=== PATIENT | male | born 1935 | race Caucasian/White ===

== ENCOUNTER → 2016-07-21 | Outpatient (CLI) | payer OTHER, BC ==
[~2016-07-21] MED LIST: ACET-1256 PO; LISI-725 PO; LRT5 PO; MULT-513 PO; ONDA4TAB46 PO; SIMV20TA2 PO
[2016-07-21 12:49] LABS: ALT/SGPT 27 U/L (12-78); AST/SGOT 20 U/L (15-37); BLOOD UREA NITROGEN 15 mg/dl (7-18); BUN/CREATININE RATIO 13.7 (10-20); CALCIUM 9.2 mg/dl (8.5-10.1); CARBON DIOXIDE 28 mmol/L (21-32); CHLORIDE 105 mmol/L (98-107); GLUCOSE 93 mg/dl (70-99); POTASSIUM 3.6 mmol/L (3.5-5.1); SODIUM 143 mmol/L (136-145)
[2016-07-21 12:50] LABS: ALB/GLOB RATIO 1.1 (0.9-2); ALKALINE PHOSPHATASE 89 U/L (45-117); CHOLESTEROL 178 mg/dl (0-200); CHOLESTEROL/HDL RATIO 2.3; HDL CHOLESTEROL 76 mg/dl; LDL CHOLESTEROL CALCULATED 70 mg/dl; TRIGLYCERIDES 158 mg/dl (0-150); VERY LOW DENSITY LIPOPROT CALC 32 mg/dl
== END | disposition home or self-care (01) ==
LOC: C.LABBFT 07:50
PROVIDERS: ATTEND Nurse Practitioner
DX: E78.00 Pure hypercholesterolemia, unspecified (principal)

== ENCOUNTER → 2016-09-26 | Outpatient (CLI) | payer OTHER, BC ==
--- NOTE | 2016-09-26 18:54 | DIAGNOSTIC IMAGING REPORT ---
TWO VIEW CHEST CLINICAL HISTORY: Cough and dyspnea. FINDINGS: PA and lateral chest radiographs are obtained. No prior studies are available for comparison at the time of dictation. The heart is top normal for projection and there is atherosclerotic calcification of the thoracic aorta. Nonspecific interstitial thickening is noted. No focal airspace consolidation or pleural effusion is identified. There is no pneumothorax. The skeletal structures are osteopenic. Degenerative change is noted throughout the thoracic spine. IMPRESSION: No acute cardiopulmonary abnormality. Electronically signed by: Moustapha Brady M.D. 09/26/2016 6:53 PM Dictated Date/Time: 09/26/2016 6:52 PM
[2016-09-26 19:01] LABS: HEMATOCRIT 40.5 % (42-52); MEAN CORPUSCULAR HEMOGLOBIN 33.3 pg (25-34); MEAN CORPUSCULAR HGB CONC 36.5 g/dl (32-36); MEAN PLATELET VOLUME 9.4 fL (7.4-10.4); PLATELET COUNT 138 K/uL (130-400); RED BLOOD COUNT 4.45 M/uL (4.7-6.1); WHITE BLOOD COUNT 6.29 K/uL (4.8-10.8)
[2016-09-26 19:27] LABS: BLOOD UREA NITROGEN 16 mg/dl (7-18); BUN/CREATININE RATIO 12.9 (10-20); CALCIUM 8.8 mg/dl (8.5-10.1); CARBON DIOXIDE 30 mmol/L (21-32); CHLORIDE 102 mmol/L (98-107); GLUCOSE 100 mg/dl (70-99); POTASSIUM 3.4 mmol/L (3.5-5.1); SODIUM 140 mmol/L (136-145)
[2016-09-26 20:02] LABS: BASO % 0.8 %; BASO ABS # 0.05 K/uL (0-0.2); COMPLETE YES; EOS % 1.6 %; IG% 0.2 %; LYMPH % 28.6 %; MONO % 9.4 %; NEUT % 59.4 %
== END | disposition home or self-care (01) ==
LOC: C.CPL 17:56
PROVIDERS: ATTEND Nurse Practitioner
DX: R06.02 Shortness of breath (principal); J18.9 Pneumonia, unspecified organism

== ENCOUNTER → 2017-01-18 | Outpatient (CLI) | payer OTHER, BC ==
[2017-01-18 12:09] LABS: BASO % 0.8 %; BASO ABS # 0.03 K/uL (0-0.2); COMPLETE YES; HEMATOCRIT 42.2 % (42-52); IG% 0.3 %; LYMPH % 42.5 %; LYMPH ABS # 1.58 K/uL (1.2-3.4); MEAN CELL VOLUME 92.3 fL (80-100); MEAN CORPUSCULAR HEMOGLOBIN 31.7 pg (25-34); MEAN CORPUSCULAR HGB CONC 34.4 g/dl (32-36); MEAN PLATELET VOLUME 9.3 fL (7.4-10.4); MONO % 14.2 %; NEUT % 38.2 %; PLATELET COUNT 176 K/uL (130-400); RED BLOOD COUNT 4.57 M/uL (4.7-6.1); WHITE BLOOD COUNT 3.72 K/uL (4.8-10.8)
[2017-01-18 12:25] LABS: ALT/SGPT 32 U/L (12-78); AST/SGOT 27 U/L (15-37); BLOOD UREA NITROGEN 14 mg/dl (7-18); BUN/CREATININE RATIO 11.7 (10-20); CARBON DIOXIDE 29 mmol/L (21-32); CHLORIDE 108 mmol/L (98-107); GLUCOSE 93 mg/dl (70-99); POTASSIUM 3.3 mmol/L (3.5-5.1); SODIUM 143 mmol/L (136-145)
[2017-01-18 12:32] LABS: ALB/GLOB RATIO 1.1 (0.9-2); ALKALINE PHOSPHATASE 85 U/L (45-117); CHOLESTEROL 154 mg/dl (0-200); CHOLESTEROL/HDL RATIO 2.3; HDL CHOLESTEROL 66 mg/dl; LDL CHOLESTEROL CALCULATED 64 mg/dl; PROSTATE SPECIFIC ANTIGEN 0.585 ng/ml (0.000-4.000); TRIGLYCERIDES 121 mg/dl (0-150); VERY LOW DENSITY LIPOPROT CALC 24 mg/dl
== END | disposition home or self-care (01) ==
LOC: C.LABBFT 07:46
PROVIDERS: ATTEND Nurse Practitioner
DX: E78.00 Pure hypercholesterolemia, unspecified (principal); Z12.5 Encounter for screening for malignant neoplasm of prostate

== ENCOUNTER → 2017-07-26 | Outpatient (CLI) | payer OTHER, BC ==
[2017-07-26 13:13] LABS: ALT/SGPT 28 U/L (12-78); BLOOD UREA NITROGEN 14 mg/dl (7-18); CALCIUM 9.3 mg/dl (8.5-10.1); CARBON DIOXIDE 29 mmol/L (21-32); CHOLESTEROL 156 mg/dl (0-200); CREATININE 1.21 mg/dl (0.60-1.40); GLUCOSE 90 mg/dl (70-99); POTASSIUM 3.4 mmol/L (3.5-5.1); SODIUM 139 mmol/L (136-145)
[2017-07-26 13:16] LABS: ALKALINE PHOSPHATASE 75 U/L (45-117); AST/SGOT 26 U/L (15-37); LDL CHOLESTEROL CALCULATED 75 mg/dl; TOTAL PROTEIN 7.1 gm/dl (6.4-8.2)
== END | disposition home or self-care (01) ==
LOC: C.LABBFT 07:56
PROVIDERS: ATTEND Nurse Practitioner
DX: E78.00 Pure hypercholesterolemia, unspecified (principal)

== ENCOUNTER → 2017-09-11 | Outpatient (CLI) | payer OTHER, BC ==
[2017-09-11 12:44] LABS: BLOOD UREA NITROGEN 15 mg/dl (7-18); CALCIUM 9.3 mg/dl (8.5-10.1); CARBON DIOXIDE 30 mmol/L (21-32); CREATININE 1.29 mg/dl (0.60-1.40); GLUCOSE 95 mg/dl (70-99); POTASSIUM 3.7 mmol/L (3.5-5.1); SODIUM 140 mmol/L (136-145)
== END | disposition home or self-care (01) ==
LOC: C.LABBFT 07:47
PROVIDERS: ATTEND Nurse Practitioner
DX: I10 Essential (primary) hypertension (principal)

== ENCOUNTER → 2018-01-23 | Outpatient (CLI) | payer OTHER, BC ==
[2018-01-23 17:36] LABS: MEAN PLATELET VOLUME 10.1 fL (7.4-10.4); PLATELET COUNT 172 K/uL (130-400)
[2018-01-23 18:34] LABS: ALBUMIN 3.8 gm/dl (3.4-5.0); ALKALINE PHOSPHATASE 71 U/L (45-117); ALT/SGPT 25 U/L (12-78); AST/SGOT 25 U/L (15-37); BLOOD UREA NITROGEN 15 mg/dl (7-18); CARBON DIOXIDE 27 mmol/L (21-32); CREATININE 1.45 mg/dl (0.60-1.40); GLUCOSE 91 mg/dl (70-99); POTASSIUM 3.9 mmol/L (3.5-5.1); SODIUM 140 mmol/L (136-145); TOTAL PROTEIN 6.9 gm/dl (6.4-8.2)
[2018-01-23 18:37] LABS: HEMATOCRIT 41.1 % (42-52); HEMOGLOBIN 14.5 g/dL (14.0-18.0); MEAN CELL VOLUME 96.7 fL (80-100); MEAN CORPUSCULAR HEMOGLOBIN 34.1 pg (25-34); RED CELL DISTRIBUTION WIDTH CV 13.4 % (11.5-14.5); RED CELL DISTRIBUTION WIDTH SD 47.2 fL (36.4-46.3); WHITE BLOOD COUNT 5.14 K/uL (4.8-10.8)
== END | disposition home or self-care (01) ==
LOC: C.LABBFT 07:37
PROVIDERS: ATTEND Nurse Practitioner
DX: I10 Essential (primary) hypertension (principal); E78.00 Pure hypercholesterolemia, unspecified; Z12.5 Encounter for screening for malignant neoplasm of prostate

== ENCOUNTER → 2018-01-28 | Outpatient (CLI) | payer OTHER, BC ==
[2018-01-28 13:02] LABS: BLOOD UREA NITROGEN 15 mg/dl (7-18); CALCIUM 9.1 mg/dl (8.5-10.1); CARBON DIOXIDE 27 mmol/L (21-32); CREATININE 1.39 mg/dl (0.60-1.40); GLUCOSE 104 mg/dl (70-99); POTASSIUM 3.9 mmol/L (3.5-5.1); SODIUM 139 mmol/L (136-145)
== END | disposition home or self-care (01) ==
LOC: C.LABBFT 10:15
PROVIDERS: ATTEND Nurse Practitioner
DX: I10 Essential (primary) hypertension (principal)

== ENCOUNTER → 2018-01-28 | Outpatient (CLI) | payer OTHER, BC | END | disposition home or self-care (01) | LOC: C.LABBFT 08:26 | PROVIDERS: ATTEND Nurse Practitioner | DX: I10 Essential (primary) hypertension (principal) ==

== ENCOUNTER 2024-08-30 10:39 | Inpatient (IN) ==
--- NOTE | 2024-08-30 10:47 | Emergency Department Note ---
Impression & Plan Acute hypoxic respiratory failure, Fall, Closed T12 fracture, Fracture of right hip ED Provider Note NAME: ALEX REIS AGE: 88 SEX: M : 1935 ARRIVES VIA: Ambulance INFORMANT: Patient, EMS report, family ED PROVIDER(S): John Hoyos MD CHIEF COMPLAINT: Fall, hip pain MEDICAL DECISION MAKING: Patient presents due to concern for fall and hip pain. Primary and secondary trauma surveys completed initially. Patient did have screening chest x-ray as well as hip and pelvis. Likely more related to hip and pelvis but given the patient's mechanism CT head neck chest abdomen pelvis also performed. Screening hip and pelvis x-ray does show concern for right surgical neck fracture of the hip. Patient was informed of this finding. Patient was noted to be mildly hypoxic. No complaints of shortness of breath. Patient was ordered IV fluids IV Ofirmev as well as a CK. Patient CT Patient's blood work shows a white count of 13 with a hemoglobin 11.8. Platelet counts of 109. Kidney function with a creat of 2.06. Baseline not too far off she is ranged in the last year from 1.3-1.9. Blood sugar 123. CT head without ICH but possible old stroke. CT cervical spine negative. Patient's cervical spine cleared. Patient's CTs do show the hip fracture as well as a T12 fracture. This was discussed with Dr. Parham who reviewed the imaging. He recommended TLSO brace after surgery but does not require transfer. I did discuss this with the on-call hospitalist service given the patient does have a T12 fracture which is currently nonoperative but does have a hip fracture. an oxygen requirements and was noted to have mild pulmonary edema seen on CAT scan. No reported pulmonary contusion. Patient satting well on 4 L nasal cannula. They are comfortable with excepting the patient with both hip fracture and back fracture. I did message with Dr. Layne to make aware the patient's hip fracture he is aware. Patient did have I did speak the on-call hospital service Dr. Haynes and the patient was admitted to the medicine service. Patient also might have evidence of an old infarct on CT. Cervical spine CT negative. CK is not elevated. Patient did have a Driscoll catheter placed. I did make the patient and patient's family were of the possibility of an old stroke seen on CT head. They were also informed of pulmonary nodules. Critical Care: I have personally spent 37 minutes of critical care time in direct management of this patient. This includes bedside care, interpretation of diagnostic studies, and testing, discussion with consultants, patient, and family members, and other require inpatient management activities. This 37 minutes is in excess of all separately billable procedures. Discussion w/ other healthcare providers: Dr. Haynes inpatient medicine service Dr. Layne orthopedics Dr. Parham orthopedic spine Prior /Outside records reviewed: None Differential diagnosis: Fracture, dislocation, contusion, strain, sprain, ICH, hemothorax, intra- abdominal injury, anemia among other causes were considered. Diagnostics, as interpreted by me: ECG: None Cardiac monitoring: An order was placed for continuous cardiac monitoring. The monitor shows a rate of 87 with sinus rhythm. Patient was placed on pulse oximetry Medical decision rules: None Imaging studies: I informally interpreted the patient's pelvis x-ray shows subcapital hip fracture with formal report to follow. HPI: Patient presents due to concern for fall. The patient reportedly fell down a set of 10 [employer] areas last evening. He believes he had a misstep to her fell in a slipper. Patient states that he primarily has right sided hip pain. The patient reportedly was able to get up back up the stairs and into bed but tried to get up again and was found laying on the ground. Patient was unable to get up thereafter. Patient denies any head or neck pain. He has no chest back or abdominal pain. Primary complaints of right hip and leg pain. Patient does not take any blood thinning medications. No antiplatelets. The patient did not take anything for pain prior to arrival. Patient was noted to be hypertensive and was mildly hypoxic at 85-86% and route per EMS. Patient does not endorse any cough or fever and no shortness of breath or chest pains. PAST MEDICAL HISTORY: See Below PAST SURGICAL HISTORY: See Below SOCIAL HISTORY: See Below HOME MEDICATIONS: See Below ALLERGIES: See Below VITALS: See Below PHYSICAL EXAMINATION: GENERAL: NAD, non-toxic. C-collar in place. EYE EXAM: Normal conjunctiva. PERRL, no anisocoria and EOM's grossly intact w/o pain. Head: Normocephalic atraumatic. OROPHARYNX: Moist mucus membranes, grossly normal dentition. NECK: Trachea midline, no stridor. Supple, no nuchal rigidity, no adenopathy, non-tender. No signs of meningismus. FROM of the neck with good chin to chest and neck extension. No midline C-spine TTP. LUNGS: Clear to auscultation. Normal chest wall mechanics. Chest: No reproducible anterior posterior rib pain. HEART: NSR, no MRG. ABDOMEN: Abdomen soft, non-tender, no masses, no rebound or guarding. BACK: No CVA TTP. No midline thoracic or lumbar TTP. SKIN: No rashes and no bruising. UPPER EXTREMITIES: Upper extremities are grossly normal. No TTP or deformity. LOWER EXTREMITIES: Right sided proximal hip pain. Neurovascular intact distally in regards to sensation. Decreased range of motion right leg secondary to pain. Able to raise left leg off bed. Compartments are soft in the right lower extremity good DP pulse and no obvious open injury. NEURO EXAM: A&O x3, cranial nerves II-XII grossly intact, normal speech, moves all 4 extremities. Past Med/Surg History Problem List Fracture of right hip (Acute) Closed T12 fracture (Acute) Fall (Acute) Acute hypoxic respiratory failure (Acute) Right inguinal hernia Proteinuria RUE numbness History of colon polyps Encounter for pre-operative examination Encounter for pre-operative examination Anemia (Acute) Benign colonic polyp (Acute) Eczema (Acute) Mitral regurgitation (Acute) Noise-induced hearing loss (Acute) Laryngopharyngeal reflux (Acute) Rotator cuff impingement syndrome of left shoulder (Acute) has had PT tx. Osteoarthritis of knee (Acute) Hypertension (Acute) Hypercholesterolemia (Acute) Actinic keratosis (Acute) Medical History Double vision with both eyes open Started around 03/02/23- seen by ophthalmology- bleeds in eyes noted worrisome for DM Reason for upcoming MRI>resolved as of interview on 10/08/23 History of skin cancer of unknown type removed in office Surgical History H/O right inguinal hernia repair (10/18/23) Right Open Inguinal Hernia Repair with Mesh(Right) - Colton Cartwright DO History of removal of cyst (03/27/23) FINAL DIAGNOSIS In office procedure Dr. Cartwright Skin, posterior neck, excision: - Epidermal cyst. History of esophagogastroduodenoscopy (EGD) History of tooth extraction all teeth removed H/O inguinal hernia repair left History of arthroscopy of left knee History of colonoscopy last 08/2021 @ [facility] Family History Unknown Hypertension Brother Colon cancer Prostate cancer Father Colon cancer Sister Cancer Other No family history of adverse response to anesthesia Denies family history of Ovarian cancer Myocardial infarction Breast cancer Social History Smoking Status: Never smoker Second Hand Exposure: Yes (hx growing up to age 19); Do You Dip or Chew Tobacco: No; Hx Alcohol Use: No Hx Substance Use: No Preferred Language: Dutch Communication Ability: Effective Visual Impairment: No Limitations Hearing Ability: Normal Application Developer Required: No Beliefs That Will Affect Care: None marital status: Current Living Situation: Spouse current occupational status: retired 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 Feels Safe at Home: Yes Childhood Exposure to Second-Hand Smoke: Yes Diet: regular caffeine: No during the past year weight has: remained stable Dental Care, Regularly: No Physical Activity Frequency: Does not Exercise Seatbelt Use: always Sunscreen Use: No Assistive Devices: Denture - Upper, Denture - Lower and Glasses Allergies Allergies Allergy/AdvReac Type Severity Reaction Status Date / Time lisinopril Allergy Severe elevated Verified 06/09/24 13:23 High Blood pressure - emergent Home Meds Home Medications Medication Instructions Recorded Confirmed cholecalciferol (vitamin D3) 50 2,000 units PO QAM 01/27/19 08/30/24 mcg (2,000 unit) tablet acetaminophen 650 mg 1,300 mg PO Q8H PRN pain 08/24/21 08/30/24 tablet,extended release (Tylenol Arthritis Pain) glucosamine sulf dipot 1 cap PO BID 08/30/21 08/30/24 chlr,msm,chond 550 mg-C 30 mg-az 1 mg capsule (Glucosamine Chondroitin) vit C 250 mg-vit E 90 mg-zinc 40 1 tab PO BID 08/30/21 08/30/24 mg-copper 1 [id number] capsule (PreserVision AREDS-2) multivitamin (Multiple Vitamins 1 tab PO QAM 09/05/22 08/30/24 tablet) peg 400-propylene glycol (PF) 0.4 1 drp ophthalmic (eye) BID PRN Dry 10/08/23 08/30/24 %-0.3 % eye drops in a dropperette Eyes (Systane (PF)) Previous Rx's Medication Instructions Recorded simvastatin 40 mg tablet 40 mg PO QPM #90 tabs 12/10/23 hydrochlorothiazide 12.5 mg capsule 12.5 mg PO DAILY #90 caps 12/13/23 pantoprazole 40 mg tablet,delayed 40 mg PO QAM #90 tabs 12/28/23 release amlodipine 5 mg tablet 5 mg PO QAM #90 tabs 02/21/24 irbesartan 300 mg tablet 300 mg PO QAM HTN #90 tabs 04/29/24 Results & Data (ED) Vital Signs Vital Signs - 24 hr 08/30/24 10:44 08/30/24 10:44 08/30/24 10:45 Temperature 37 C 37 C Temperature Source Oral Pulse Rate 100 H 100 H Pulse Rate [Apical] Pulse Strength [Bilateral Femoral] Normal Respiratory Rate 18 18 Respiratory Effort / Characteristics Non-Labored Spontaneous Respiratory Depth Normal Respiratory Pattern Regular Blood Pressure 150/82 H 150/82 H Blood Pressure [Right Arm] Blood Pressure Mean 104 Blood Pressure Mean [Right Arm] Pulse Oximetry 86 L 86 L 98 Oxygen Delivery Method Room Air Room Air Nasal Cannula Oxygen Flow Rate 86 5 Sepsis Recent Fever Within 48 Hours No Sepsis New/Unexplained Change in Mental Status No Sepsis Action Taken by Nursing No Action Required 08/30/24 10:57 08/30/24 11:36 08/30/24 12:00 Temperature 37 C 37 C Temperature Source Oral Oral Pulse Rate 99 H Pulse Rate [Apical] 91 H 86 Pulse Strength [Bilateral Femoral] Respiratory Rate 18 18 18 Respiratory Effort / Characteristics Non-Labored Spontaneous Non-Labored Spontaneous Respiratory Depth Normal Normal Respiratory Pattern Regular Regular Blood Pressure Blood Pressure [Right Arm] 176/77 H 147/98 H Blood Pressure Mean Blood Pressure Mean [Right Arm] 110 114 Pulse Oximetry 97 95 96 Oxygen Delivery Method Nasal Cannula Nasal Cannula Nasal Cannula Oxygen Flow Rate 5 2 4 Sepsis Recent Fever Within 48 Hours Sepsis New/Unexplained Change in Mental Status Sepsis Action Taken by Nursing 08/30/24 12:26 08/30/24 13:00 08/30/24 14:00 Temperature 36.9 C Temperature Source Oral Pulse Rate 86 Pulse Rate [Apical] 82 73 Pulse Strength [Bilateral Femoral] Respiratory Rate 18 18 Respiratory Effort / Characteristics Respiratory Depth Respiratory Pattern Regular Blood Pressure Blood Pressure [Right Arm] 162/70 H 165/73 H Blood Pressure Mean Blood Pressure Mean [Right Arm] 100 103 Pulse Oximetry 94 95 Oxygen Delivery Method Room Air Nasal Cannula Oxygen Flow Rate 4 4 Sepsis Recent Fever Within 48 Hours Sepsis New/Unexplained Change in Mental Status Sepsis Action Taken by Snf Medications Current Medication List: was personally reviewed by me Laboratory Data Attestation: I reviewed the patient's lab results. 08/30/24 10:59 08/30/24 10:59 Lab Results 08/30/24 08/30/24 08/30/24 Range/Units 10:59 11:02 11:02 WBC 13.14 H (4.8-10.8) K/ul RBC 3.69 L (4.70-6.10) M/uL Hgb 11.8 L (14.0-18.0) g/dl POC Hgb 11.9 L (14.0-18.0) g/dl Hct 35.0 L (42.0-52.0) % POC Hct 35 L (42-52) % MCV 94.9 (80.0-100.0) fL MCH 32.0 (25.0-34.0) pg MCHC 33.7 (32.0-36.0) g/dL RDW Std Deviation 44.9 (36.4-46.3) fL RDW Coeff of Fer 13.0 (11.5-14.5) % Plt Count 109 L (130-400) K/uL MPV 9.5 (9.4-12.4) fL Immature Gran % (Auto) 0.6 % Neut % (Auto) 87.3 % Lymph % (Auto) 7.4 % Kenton % (Auto) 4.3 % Eos % (Auto) 0.2 % Baso % (Auto) 0.2 % Neut # (Auto) 11.47 H (1.40-6.50) K/uL Lymph # (Auto) 0.97 L (1.20-3.40) K/uL Kenton # (Auto) 0.56 (0.11-0.59) K/uL Eos # (Auto) 0.03 (0.00-0.50) K/uL Baso # (Auto) 0.03 (0.00-0.20) K/uL Immature Gran # (Auto) 0.08 (0.01-0.20) K/uL PT 10.8 (9.0-12.0) Seconds INR 1.0 (0.9-1.1) APTT 28 (21-31) Seconds PTT Ratio 1.0 POC Sodium 141 (135-144) mmol/L Sodium 142 (136-145) mmol/L POC Potassium 4.4 (3.3-5.0) mmol/L Potassium 4.4 (3.5-5.1) mmol/L POC Chloride 107 (101-112) mmol/L Chloride 107 (98-107) mmol/L Carbon Dioxide 26 (21-32) mmol/L POC Total CO2 23 L (24-31) mmol/L Anion Gap 9 (3-11) POC Anion Gap 16.0 (16-25) mmol/L POC BUN 32 H (7-18) mg/dl BUN 36 H (6-23) mg/dl Creatinine 2.06 H (0.6-1.4) mg/dl POC Creatinine 2.2 H (0.6-1.3) mg/dl Est Cr Clr Drug Dosing Not Reportable eGFR 30.60 BUN/Creatinine Ratio 17.5 (10-20) Glucose 123 H (70-99(Fasting)) mg/dl POC Glucose (other) 124 H (70-99) mg/dl Calcium 9.3 (8.6-10.3) mg/dl POC Ioniz Calcium Lenny 1.19 (1.12-1.32) mmol/l Total Bilirubin 1.1 H (0.2-1.0) mg/dl AST 27 (13-39) U/L ALT 16 (7-52) U/L Alkaline Phosphatase 73 (34-104) U/L Total Creatine Kinase 104 (30-223) U/L Total Protein 7.2 (6.0-8.3) gm/dl Albumin 3.9 (3.4-5.0) gm/dl Globulin 3.3 (2.5-4.0) gm/dl Albumin/Globulin Ratio 1.2 (0.9-2) Lipase 15 (11-82) U/L Blood Type O Positive Cancelled Antibody Screen NEGATIVE 08/30/24 Range/Units 11:02 WBC (4.8-10.8) K/ul RBC (4.70-6.10) M/uL Hgb (14.0-18.0) g/dl POC Hgb (14.0-18.0) g/dl Hct (42.0-52.0) % POC Hct (42-52) % MCV (80.0-100.0) fL MCH (25.0-34.0) pg MCHC (32.0-36.0) g/dL RDW Std Deviation (36.4-46.3) fL RDW Coeff of Fer (11.5-14.5) % Plt Count (130-400) K/uL MPV (9.4-12.4) fL Immature Gran % (Auto) % Neut % (Auto) % Lymph % (Auto) % Kenton % (Auto) % Eos % (Auto) % Baso % (Auto) % Neut # (Auto) (1.40-6.50) K/uL Lymph # (Auto) (1.20-3.40) K/uL Kenton # (Auto) (0.11-0.59) K/uL Eos # (Auto) (0.00-0.50) K/uL Baso # (Auto) (0.00-0.20) K/uL Immature Gran # (Auto) (0.01-0.20) K/uL PT (9.0-12.0) Seconds INR (0.9-1.1) APTT (21-31) Seconds PTT Ratio POC Sodium (135-144) mmol/L Sodium (136-145) mmol/L POC Potassium (3.3-5.0) mmol/L Potassium (3.5-5.1) mmol/L POC Chloride (101-112) mmol/L Chloride (98-107) mmol/L Carbon Dioxide (21-32) mmol/L POC Total CO2 (24-31) mmol/L Anion Gap (3-11) POC Anion Gap (16-25) mmol/L POC BUN (7-18) mg/dl BUN (6-23) mg/dl Creatinine (0.6-1.4) mg/dl POC Creatinine (0.6-1.3) mg/dl Est Cr Clr Drug Dosing eGFR BUN/Creatinine Ratio (10-20) Glucose (70-99(Fasting)) mg/dl POC Glucose (other) (70-99) mg/dl Calcium (8.6-10.3) mg/dl POC Ioniz Calcium Lenny (1.12-1.32) mmol/l Total Bilirubin (0.2-1.0) mg/dl AST (13-39) U/L ALT (7-52) U/L Alkaline Phosphatase (34-104) U/L Total Creatine Kinase (30-223) U/L Total Protein (6.0-8.3) gm/dl Albumin (3.4-5.0) gm/dl Globulin (2.5-4.0) gm/dl Albumin/Globulin Ratio (0.9-2) Lipase (11-82) U/L Blood Type Antibody Screen Cancelled Administered Medications Discontinued Medications Fentanyl Citrate (Fentanyl Citrate Pf 100 Mcg/2 Ml Vial) 25 mcg IV NOW STA Stop: 08/30/24 12:13 Last Admin: 08/30/24 12:22 Dose: 25 mcg Documented By: CRISTINA Acetaminophen (Ofirmev) 1,000 mg in 100 mls @ 400 mls/hr IV NOW STA Stop: 08/30/24 11:00 Last Infusion: 08/30/24 11:18 Dose: Infused Documented By: Admin: 08/30/24 11:03 Dose: 400 mls/hr Documented By: CRISTINA Sodium Chloride (Nss) 1,000 mls @ 999 mls/hr IV .Q1H1M ONE Stop: 08/30/24 12:19 Last Infusion: 08/30/24 12:40 Dose: Infused Documented By: Admin: 08/30/24 11:39 Dose: 999 mls/hr Documented By: CRISTINA Morphine Sulfate (Morphine Sulfate 2 Mg/Ml Carp) 2 mg IV NOW STA Stop: 08/30/24 11:20 Last Admin: 08/30/24 11:39 Dose: 2 mg Documented By: CRISTINA Ondansetron HCl (Ondansetron Inj 2 Mg/Ml 2 Ml Vial) 4 mg IV NOW STA Stop: 08/30/24 12:13 Last Admin: 08/30/24 12:15 Dose: 4 mg Documented By: CRISTINA Imaging Data Radiologist's Impression: Chest X-Ray 08/30/24 10:45 XR chest 1V portable CLINICAL HISTORY: Trauma COMPARISON STUDY: No previous studies for comparison. FINDINGS: Lung volumes are normal. Lungs are clear. There is no pneumothorax or pleural effusion. Cardiac size is normal. Mediastinal contours are normal. There is no evidence for pulmonary edema. IMPRESSION: No acute cardiopulmonary findings. ACT 112: Negative or not required by law. Electronically signed by: Florentino Garrett M.D. 08/30/2024 11:19 AM Pelvis X-Ray 08/30/24 10:45 XR pelvis 1-2V routine CLINICAL HISTORY: Trauma COMPARISON: None FINDINGS: Sacroiliac joints and symphysis pubis are intact. There is an acute displaced subcapital right femoral neck fracture. No additional acute fractures are present. Pelvic calcifications represent phleboliths. There is mild joint space narrowing and moderate osteophytosis of both hips. IMPRESSION: Acute displaced subcapital right femoral neck fracture. ACT 112: Negative or not required by law. Electronically signed by: Florentino Garrett M.D. 08/30/2024 11:17 AM Abdomen/Pelvis CT 08/30/24 10:46 CT OF THE ABDOMEN AND PELVIS WITHOUT CONTRAST CLINICAL HISTORY: Trauma COMPARISON STUDY: Pelvis and right hip radiographs performed earlier today. TECHNIQUE: Axial images of the abdomen and pelvis were obtained without IV contrast. Images were reviewed in the axial, sagittal, and coronal planes. Automated exposure control was utilized for the study. A dose lowering technique was utilized adhering to the principles of ALARA. FINDINGS: Please note that the chest CT will be reported separately. No hemoperitoneum or pneumoperitoneum is present. Evaluation of the solid abdominal viscera is suboptimal on this unenhanced exam but there is no evidence for traumatic injury to the liver, spleen, adrenal glands, kidneys or pancreas. Water attenuation right upper pole renal lesions favor cysts. There is extensive colonic diverticulosis without evidence for acute diverticulitis. There is no evidence for a bowel obstruction. No abdominal or pelvic lymphadenopathy is present. Postoperative findings suggestive of bilateral inguinal hernia repairs are noted. There is an acute displaced subcapital right femoral neck fracture. No proximal left femoral fracture is present. There is an acute appearing nondisplaced fracture of the T12 vertebral body which involves the anterior cortex and superior endplate. No retropulsion is present. Posterior cortex is intact. No extension into the posterior elements is noted. IMPRESSION: 1. Acute displaced subcapital right femoral neck fracture. 2. Acute nondisplaced T12 vertebral body fracture which involves the anterior cortex and superior endplate. No retropulsion. No extension into the posterior elements. 3. No evidence for acute traumatic injury to the solid abdominal viscera on unenhanced exam. ACT 112: Negative or not required by law. Electronically signed by: Florentino Garrett M.D. 08/30/2024 12:[address] 08/30/24 10:46 CT OF THE CERVICAL SPINE WITHOUT CONTRAST CLINICAL HISTORY: Trauma COMPARISON STUDY: Cervical spine radiographs March 12, 2023. Cervical spine MRI March 19, 2023. TECHNIQUE: Helical axial images of the cervical spine were obtained without IV contrast. Sagittal and coronal reconstructions were viewed. Automated exposure control was utilized for the study. A dose lowering technique was utilized adhering to the principles of ALARA. FINDINGS: There is straightening of the cervical lordosis. Vertebral body heights are maintained. No acute cervical spine fracture or subluxation is present. There is no prevertebral edema. Facet joints are intact. Moderate multilevel disc space narrowing, endplate osteophytosis and facet arthrosis within the cervical spine is present. IMPRESSION: No acute cervical spine fracture or subluxation. ACT 112: Negative or not required by law. Electronically signed by: Florentino Garrett M.D. 08/30/2024 11:[address] 08/30/24 10:46 CT OF THE CHEST WITHOUT IV CONTRAST CLINICAL HISTORY: Trauma COMPARISON STUDY: Chest radiograph performed earlier today. TECHNIQUE: Axial images of the chest were obtained without IV contrast. Images were reviewed in the axial, sagittal, and coronal planes. IV contrast was not administered for this examination. Automated exposure control was utilized for the study. A dose lowering technique was utilized adhering to the principles of ALARA. FINDINGS: Thoracic aorta is suboptimally assessed on unenhanced exam but no mediastinal hematoma is present. The heart is mildly enlarged. There is no pericardial effusion. There are suspected enlarged bilateral hilar lymph nodes, suboptimally assessed on unenhanced exam. Right hilar lymph node on image 136 of 237 measures 2.4 x 1.8 cm. There are also mildly enlarged mediastinal lymph nodes. A right paratracheal lymph node on image 60 measures 1.9 x 1.4 cm. There is no pneumothorax or pleural effusion. Subpleural ground glass opacities favor atelectasis. Interlobular septal thickening is present. There is a 6 mm left lower lobe subpleural nodule on image 171 and an 8 mm nodule along the minor fissure within the right middle lobe on image 113. There is an acute appearing nondisplaced T12 vertebral body fracture which is better depicted on the CT of the abdomen and pelvis. No additional thoracic spine fractures are present. IMPRESSION: 1. Acute nondisplaced T12 vertebral body fracture better depicted on the CT of the abdomen and pelvis will be reported separately. 2. No additional acute traumatic findings within the chest. 3. Mildly enlarged mediastinal lymph nodes and suspected enlarged bilateral hilar lymph nodes. This lymphadenopathy is nonspecific and a chest CT in 6 months to ensure stability is recommended. 4. A few pulmonary nodules measuring up to 8 mm which can be assessed on follow- up CT to ensure stability. 5. Mild cardiomegaly and mild interstitial pulmonary edema. ACT 112: Negative or not required by law. Electronically signed by: Florentino Garrett M.D. 08/30/2024 11:[address] 08/30/24 10:46 CT OF THE HEAD WITHOUT CONTRAST CLINICAL HISTORY: trauma COMPARISON STUDY: Head CT June 19, 2010. MRI of the brain March 19, 2023. TECHNIQUE: Helical axial images of the head were obtained without IV contrast. Automated exposure control was utilized for the study. A dose lowering technique was utilized adhering to the principles of ALARA. FINDINGS: No acute intracranial hemorrhage, midline shift or mass effect is present. White matter hypodensity suggests small vessel disease. 1.4 cm hypodense focus within the anterior left thalamus was not clearly evident on previous MRI. The ventricular system is unremarkable. The basal cisterns are patent. No extra-axial collections are present. There are no findings to suggest acute dural sinus thrombosis or acute territorial infarct. No significant calvarial abnormalities are present. Visualized portions of the sinuses and mastoid air cells are clear. IMPRESSION: 1. No acute intracranial findings. 2. No calvarial fractures. 3. 1.4 cm hypodense focus within the anterior left thalamus. 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 4. Extensive small vessel disease. ACT 112: Negative or not required by law. Electronically signed by: Florentino Garrett M.D. 08/30/2024 11:45 AM Femur X-Ray 08/30/24 10:47 XR femur RT 2V routine CLINICAL HISTORY: R hip/femur pain COMPARISON: None FINDINGS: There is an acute displaced subcapital right femoral neck fracture. No additional right femoral fractures are identified. There are no osseous lesions. Moderate degenerative changes within the right knee are present. There is mild joint space narrowing and moderate osteophytosis of the right hip. IMPRESSION: Acute displaced subcapital right femoral neck fracture. ACT 112: Negative or not required by law. Electronically signed by: Florentino Garrett M.D. 08/30/2024 11:18 AM Discharge Plan Visit Data Chief Complaint: Trauma Stated Complaint: FALL, BACK & LEG PAIN ED Provider: John Hoyos Discharge Problem: Acute hypoxic respiratory failure, Fall, Closed T12 fracture, Fracture of right hip Forms Stand Alone Forms: [facility] WDT Acquisition Prescriptions Prescriptions: No Action simvastatin 40 mg tablet 40 mg PO QPM Qty: 90 3RF hydrochlorothiazide 12.5 mg capsule 12.5 mg PO DAILY Qty: 90 3RF pantoprazole 40 mg tablet,delayed release (DR/EC) 40 mg PO QAM Qty: 90 3RF amlodipine 5 mg tablet 5 mg PO QAM Qty: 90 3RF irbesartan 300 mg tablet 300 mg PO QAM Qty: 90 3RF cholecalciferol (vitamin D3) 2,000 unit tablet 2,000 units PO QAM Rx Instructions: otc unable to verify multivitamin [Multiple Vitamins] Tablet 1 tab PO QAM Rx Instructions: otc unable to verify acetaminophen [Tylenol Arthritis Pain] 650 mg tablet extended release 1,300 mg PO Q8H PRN (Reason: pain) Patient Comments: Take as directed per package instructions Rx Instructions: otc unable to verify PreserVision AREDS-2 250-90-40-1 mg Capsule 1 tab PO BID Rx Instructions: otc unable to verify Glucosamine Chondroitin 550-30-1 mg Capsule 1 cap PO BID Rx Instructions: otc unable to verify Systane (PF) 0.4-0.3 % Dropperette 1 drp OPHTHALMIC (EYE) BID PRN (Reason: Dry Eyes) Rx Instructions: otc unable to verify Referrals Referrals: Katarina Villarreal CRNP [Primary Care Provider] - Discharge Problem: Fall Qualifiers: Encounter type: initial encounter Qualified Code(s): W19.XXXA - Unspecified fall, initial encounter Closed T12 fracture Qualifiers: Encounter type: initial encounter Fracture morphology: other fracture Qualified Code(s): S22.088A - Other fracture of T11-T12 vertebra, initial encounter for closed fracture Fracture of right hip Qualifiers: Encounter type: initial encounter Fracture type: closed Qualified Code(s): S 72.001A - Fracture of unspecified part of neck of right femur, initial encounter for closed fracture
--- OUTSIDE RECORDS SUMMARY | 2024-08-30 10:47 | External Medical Summary | Continuity of Care Document ---
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 AK (actinic keratosis)(Discharge Diagnosis) - 08/26/24 Asteatotic dermatitis(Discharge Diagnosis) - 08/26/24 Discharge Disposition: Home or Self Care Attending Physician: MD Arvizu Thomas A Encounter Type: Clinic Allergies, Adverse Reactions, Alerts Substance Criticality Severity Reaction Reaction Severity Status lisinopril 1, 2 hypertension A ctive 1blood pressure increases 2hypertensive, head felt like it would explode Assessment and Plan Extracted from: Title:Clinical Document Author:MD [facility]uh[facility] Date:08/26/24 OUTPATIENT NOTE Name: CHINO CHAU Patient Number:1 [id number] : 1935 Date of Service: 08/26/2024 _ Chino Chau returns for evaluation of hyperkeratosis and tenderness of the lower lip. Patient notes that this developed over the past several months. The area of involvement appears as hyperkeratosis midline of the lower lip which extends to the left lower lip. This appears consistent with actinic cheilitis. The area of involvement was treated with cryotherapy with patient consent. Side effects were discussed. The patient was given a prescription for 5-fluorouracil cream to apply to the lower lip approximately 3 weeks after the inflammation from the cryotherapy is resolved. He should expect significant irritation. An additional actinic keratosis was treated with cryotherapy on the right helix of the ear. Patient notes that the dermatitis present on the back has improved with application of the triamcinolone cream. He has just started his second 1 pound jar. The back appears clear today and I advised that they taper the triamcinolone substituting CeraVe moisturizer in its place. For the first week, they may apply the triamcinolone twice daily alternating with once daily, second week decrease to once daily applications of triamcinolone, and third week every other day applications of triamcinolone. When the triamcinolone is not being applied the CeraVe moisturizer should be. Would avoid over soaping the back. Review of systems medications allergies as noted on the chart. The patient is in stable health. Examination is otherwise unremarkable today. Return for regularly scheduled appointment in November. Mental Status 08/26/24 Barriers to Learning one year None evide nt Mandatory Health Literacy Documentation Yes Health Literacy Communication Barriers N ever Primary Language Georgian Problem List Condition Confirmation Course Effective Dates Status Health Status Informant AK (actinic keratosis) Confirmed Active Anemia Confirmed Active Esophageal varices Confirmed Active History of SCC (squamous cell carcinoma) of skin 1 Confirmed 06/2021 Active Hypercholesterolemia Confirmed Active Hypertension Confirmed Active Skin cancer Confirmed Active Reflux Confirmed Active 1left lateral neck Diagnosis Diagnosis Type Effective Dates Health Status Clinical Service Informant AK (actinic keratosis) Discharge Diagnosis 08/26/24 Asteatotic dermatitis Discharge Diagnosis 08/26/24 Actinic cheilitis Discharge Diagnosis 08/26/24 Procedures Procedure Date Related Diagnosis Body Site Status Electrodesiccation with curettage 1 07/24/22 Completed Electrodesiccation with curettage 2 07/24/22 Completed Shave biopsy and cauterizati on of skin 3 06/14/22 Completed Medical records review 4 07/17/19 Completed Medical records review 5 06/06/19 Completed Laboratory findings data interpretation 6, 7 05/28/19 Completed Colonoscopy 8 03/05/19 Completed Esophagogastroduodenoscopy 9 03/05/19 Completed colonoscopy Completed hernia repair Completed 1left ear 2vertex of scalp 3w/ ED&C 4DR Ibrahim Hematology OV. Hgb improveved as of 07/11/2019 13.3. He offered imaging to evaluated forliver disease given varices and patien declined. Recommendation is for CBC in 3 mos and OV 6 months. 5On[address] OV Dr Ibrahim for anemia. He ordered labs CBC, CMP with LDH, ESR, erythopoietin, haptoglobin, reticulocyte count, SPEP , B12 and f/u. 6CBC Hgb 12.5 , MCV normal. 7WBC 4.6 Low 8COLO to cecum 5 polyps removed, diverticulosis, hemorrhoids 9EGD mild erythema duodenal bulb and antrum, antrum bx, 2nd duod nl bx, upper esoph varices. HH, Social History Social History Type Response Smoking Status Never smoked cigaret shai Sex Male Sex Representation Male (finding) Outpatient Note * MD Luh, Avel Wilder: PERFORM Event Display: .Outpt Note Authored Date: [id number] OUTPATIENT NOTE Name: CHINO CHAU Patient Number:1 [id number] : 1935 Date of Service: 08/26/2024 _ Chino Chau returns for evaluation of hyperkeratosis and tenderness of the lower lip. Patient notes that this developed over the past several months. The area of involvement appears as hyperkeratosis midline of the lower lip which extends to the left lower lip. This appears consistent with actinic cheilitis. The area of involvement was treated with cryotherapy with patient consent. Side effects were discussed. The patient was given a prescription for 5-fluorouracil cream to apply to the lower lip approximately 3 weeks after the inflammation from the cryotherapy is resolved. He should expect significant irritation. An additional actinic keratosis was treated with cryotherapy on the right helix of the ear. Patient notes that the dermatitis present on the back has improved with application of the triamcinolone cream. He has just started his second 1 pound jar. The back appears clear today and I advised that they taper the triamcinolone substituting CeraVe moisturizer in its place. For the first week, they may apply the triamcinolone twice daily alternating with once daily, second week decrease to once daily applications of triamcinolone, and third week every other day applications of triamcinolone. When the triamcinolone is not being applied the CeraVe moisturizer should be. Would avoid over soaping the back. Review of systems medications allergies as noted on the chart. The patient is in stable health. Examination is otherwise unremarkable today. Return for regularly scheduled appointment in November. Electronic Signature on File Electronically Reviewed/Signed by: Avel Arvizu MD Author Signature Dt/Tm:08/26/2024 03:16 PM Department of Dermatology [facility] Patient Care team information Care Team Personnel Name: MICKY Villarreal Rebecca Linn Position: Referring Member Role: Primary Care Provider Address: [address] Telecom: [phone] Care Team Related Persons Name: ALLEN REECE Name: ALLEN CHAU Name: ALEN CHAU Insurance Providers Guarantor name: CHINO CHAU Health Plan Information #: 2 Payer: [facility] Member Number: [id number] Policy Number: NA Group Number: [id number] Health Plan Information #: 1 Payer: MEDICARE Member Number: [id number] Policy Number: NA Group Number: NA
[2024-08-30] MEDS: ACETAMINOPHEN 1,000 MG/100 ML VIAL IV STA (11:03)
[2024-08-30 11:14] LABS: iSTAT Creatinine 2.2 mg/dl (0.6-1.3); iSTAT Hemoglobin 11.9 g/dl (14.0-18.0); iSTAT Ionized Calcium 1.19 mmol/l (1.12-1.32); iSTAT Potassium 4.4 mmol/L (3.3-5.0)
--- NOTE | 2024-08-30 11:18 | XRay Report ---
XR pelvis 1-2V routine CLINICAL HISTORY: Trauma COMPARISON: None FINDINGS: Sacroiliac joints and symphysis pubis are intact. There is an acute displaced subcapital r ight femoral neck fracture. No additional acute fractures are present. Pelvic calcifications represen t phleboliths. There is mild joint space narrowing and moderate osteophytosis of both hips. IMPRESSION: Acute displaced subcapital right femoral neck fracture. ACT 112: Negative or not required by law. Electronically signed by: Florentino Garrett M.D. 08/30/2024 11:17 AM
--- NOTE | 2024-08-30 11:19 | XRay Report ---
XR femur RT 2V routine CLINICAL HISTORY: R hip/femur pain COMPARISON: None FINDINGS: There is an acute displaced subcapital right femoral neck fracture. No additional right fe moral fractures are identified. There are no osseous lesions. Moderate degenerative changes within th e right knee are present. There is mild joint space narrowing and moderate osteophytosis of the right hip. IMPRESSION: Acute displaced subcapital right femoral neck fracture. ACT 112: Negative or not required by law. Electronically signed by: Florentino Garrett M.D. 08/30/2024 11:18 AM
--- NOTE | 2024-08-30 11:20 | XRay Report ---
XR chest 1V portable CLINICAL HISTORY: Trauma COMPARISON STUDY: No previous studies for comparison. FINDINGS: Lung volumes are normal. Lungs are clear. There is no pneumothorax or pleural effusion. Car diac size is normal. Mediastinal contours are normal. There is no evidence for pulmonary edema. IMPRESSION: No acute cardiopulmonary findings. ACT 112: Negative or not required by law. Electronically signed by: Florentino Garrett M.D. 08/30/2024 11:19 AM
[2024-08-30 11:23] LABS: Basophils # (auto) 0.03 K/uL (0.00-0.20); Basophils % (auto) 0.2 %; Eosinophils # (auto) 0.03 K/uL (0.00-0.50); Eosinophils % (auto) 0.2 %; Hemoglobin 11.8 g/dl (14.0-18.0); Immature Granulocytes # (auto) 0.08 K/uL (0.01-0.20); Immature Granulocytes % (auto) 0.6 %; Lymphocytes # (auto) 0.97 K/uL (1.20-3.40); Lymphocytes % (auto) 7.4 %; Mean Corpuscular Hgb Conc 33.7 g/dL (32.0-36.0); Mean Corpuscular Volume 94.9 fL (80.0-100.0); Mean Platelet Volume 9.5 fL (9.4-12.4); Monocytes # (auto) 0.56 K/uL (0.11-0.59); Monocytes % (auto) 4.3 %; Neutrophils # (auto) 11.47 K/uL (1.40-6.50); Neutrophils % (auto) 87.3 %; Platelet Count 109 K/uL (130-400); RDW Standard Deviation 44.9 fL (36.4-46.3); Red Blood Count 3.69 M/uL (4.70-6.10); White Blood Count 13.14 K/ul (4.8-10.8)
[2024-08-30 11:26] LABS: Partial Thromboplastin Time 28 Seconds (21-31); Prothrombin Time 10.8 Seconds (9.0-12.0)
[2024-08-30 11:34] LABS: Alanine Aminotransferase 16 U/L (7-52); Albumin Globulin Ratio 1.2 (0.9-2); Albumin Level 3.9 gm/dl (3.4-5.0); Alkaline Phosphatase 73 U/L (34-104); Anion Gap 9 (3-11); Aspartate Aminotransferase 27 U/L (13-39); BUN Creatinine Ratio 17.5 (10-20); Bilirubin,Total 1.1 mg/dl (0.2-1.0); Blood Urea Nitrogen 36 mg/dl (6-23); Calcium 9.3 mg/dl (8.6-10.3); Carbon Dioxide 26 mmol/L (21-32); Chloride 107 mmol/L (98-107); Globulin 3.3 gm/dl (2.5-4.0); Glucose 123 mg/dl (70-99(Fasting)); Lipase 15 U/L (11-82); Potassium 4.4 mmol/L (3.5-5.1); Sodium 142 mmol/L (136-145); Total Protein 7.2 gm/dl (6.0-8.3)
[2024-08-30] MEDS: MoRPHine SULFATE 2 MG/ML CARP IV STA ×2 (11:39→16:12)
[2024-08-30] MEDS: SODIUM CHLORIDE 0.9% 1,000 ML IV ONE (11:39)
[2024-08-30 11:42] LABS: Creatine Kinase 104 U/L (30-223)
--- NOTE | 2024-08-30 11:46 | CT Scan Report ---
CT OF THE HEAD WITHOUT CONTRAST CLINICAL HISTORY: trauma COMPARISON STUDY: Head CT June 19, 2010. MRI of the brain March 19, 2023. TECHNIQUE: Helical axial images of the head were obtained without IV contrast. Automated exposure con trol was utilized for the study. A dose lowering technique was utilized adhering to the principles o f ALARA. FINDINGS: No acute intracranial hemorrhage, midline shift or mass effect is present. White matter hyp odensity suggests small vessel disease. 1.4 cm hypodense focus within the anterior left thalamus was not clearly evident on previous MRI. The ventricular system is unremarkable. The basal cisterns are p atent. No extra-axial collections are present. There are no findings to suggest acute dural sinus thr ombosis or acute territorial infarct. No significant calvarial abnormalities are present. Visualized portions of the sinuses and mastoid air cells are clear. IMPRESSION: 1. No acute intracranial findings. 2. No calvarial fractures. 3. 1.4 cm hypodense focus within the anterior left thalamus. 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 4. Extensive small vessel disease. ACT 112: Negative or not required by law. Electronically signed by: Florentino Garrett M.D. 08/30/2024 11:45 AM
--- NOTE | 2024-08-30 11:50 | CT Scan Report ---
CT OF THE CERVICAL SPINE WITHOUT CONTRAST CLINICAL HISTORY: Trauma COMPARISON STUDY: Cervical spine radiographs March 12, 2023. Cervical spine MRI March 19. TECHNIQUE: Helical axial images of the cervical spine were obtained without IV contrast. Sagittal a nd coronal reconstructions were viewed. Automated exposure control was utilized for the study. A do se lowering technique was utilized adhering to the principles of ALARA. FINDINGS: There is straightening of the cervical lordosis. Vertebral body heights are maintained. No acute cervical spine fracture or subluxation is present. There is no prevertebral edema. Facet joints are intact. Moderate multilevel disc space narrowing, endplate osteophytosis and facet arthrosis wi thin the cervical spine is present. IMPRESSION: No acute cervical spine fracture or subluxation. ACT 112: Negative or not required by law. Electronically signed by: Florentino Garrett M.D. 08/30/2024 11:48 AM
--- NOTE | 2024-08-30 12:00 | CT Scan Report ---
CT OF THE CHEST WITHOUT IV CONTRAST CLINICAL HISTORY: Trauma COMPARISON STUDY: Chest radiograph performed earlier today. TECHNIQUE: Axial images of the chest were obtained without IV contrast. Images were reviewed in the axial, sagittal, and coronal planes. IV contrast was not administered for this examination. Automat ed exposure control was utilized for the study. A dose lowering technique was utilized adhering to t he principles of ALARA. FINDINGS: Thoracic aorta is suboptimally assessed on unenhanced exam but no mediastinal hematoma is present. The heart is mildly enlarged. There is no pericardial effusion. There are suspected enlarged bilateral hilar lymph nodes, suboptimally assessed on unenhanced exam. Right hilar lymph node on image 136 of 237 measures 2.4 x 1.8 cm. There are also mildly enlarged medi astinal lymph nodes. A right paratracheal lymph node on image 60 measures 1.9 x 1.4 cm. There is no p neumothorax or pleural effusion. Subpleural ground glass opacities favor atelectasis. Interlobular se ptal thickening is present. There is a 6 mm left lower lobe subpleural nodule on image 171 and an 8 m m nodule along the minor fissure within the right middle lobe on image 113. There is an acute appeari ng nondisplaced T12 vertebral body fracture which is better depicted on the CT of the abdomen and pel vis. No additional thoracic spine fractures are present. IMPRESSION: 1. Acute nondisplaced T12 vertebral body fracture better depicted on the CT of the abdomen and pelvis will be reported separately. 2. No additional acute traumatic findings within the chest. 3. Mildly enlarged mediastinal lymph nodes and suspected enlarged bilateral hilar lymph nodes. This l ymphadenopathy is nonspecific and a chest CT in 6 months to ensure stability is recommended. 4. A few pulmonary nodules measuring up to 8 mm which can be assessed on follow-up CT to ensure stabi lity. 5. Mild cardiomegaly and mild interstitial pulmonary edema. ACT 112: Negative or not required by law. Electronically signed by: Florentino Garrett M.D. 08/30/2024 11:57 AM
--- NOTE | 2024-08-30 12:08 | CT Scan Report ---
CT OF THE ABDOMEN AND PELVIS WITHOUT CONTRAST CLINICAL HISTORY: Trauma COMPARISON STUDY: Pelvis and right hip radiographs performed earlier today. TECHNIQUE: Axial images of the abdomen and pelvis were obtained without IV contrast. Images were revi ewed in the axial, sagittal, and coronal planes. Automated exposure control was utilized for the miguel dy. A dose lowering technique was utilized adhering to the principles of ALARA. FINDINGS: Please note that the chest CT will be reported separately. No hemoperitoneum or pneumoperit oneum is present. Evaluation of the solid abdominal viscera is suboptimal on this unenhanced exam but there is no evidence for traumatic injury to the liver, spleen, adrenal glands, kidneys or pancreas. Water attenuation right upper pole renal lesions favor cysts. There is extensive colonic diverticulo sis without evidence for acute diverticulitis. There is no evidence for a bowel obstruction. No abdom inal or pelvic lymphadenopathy is present. Postoperative findings suggestive of bilateral inguinal he rnia repairs are noted. There is an acute displaced subcapital right femoral neck fracture. No proxim al left femoral fracture is present. There is an acute appearing nondisplaced fracture of the T12 diego tebral body which involves the anterior cortex and superior endplate. No retropulsion is present. Pos terior cortex is intact. No extension into the posterior elements is noted. IMPRESSION: 1. Acute displaced subcapital right femoral neck fracture. 2. Acute nondisplaced T12 vertebral body fracture which involves the anterior cortex and superior end plate. No retropulsion. No extension into the posterior elements. 3. No evidence for acute traumatic injury to the solid abdominal viscera on unenhanced exam. ACT 112: Negative or not required by law. Electronically signed by: Florentino Garrett M.D. 08/30/2024 12:06 PM
[2024-08-30] MEDS: ONDANSETRON INJ 2 MG/ML 2 ML VIAL IV STA (12:15)
[2024-08-30] MEDS: fentaNYL citrate PF 100 MCG/2 ML VIAL IV STA ×2 (12:22→14:22)
--- NOTE | 2024-08-30 14:30 | History & Physical Report ---
Date of Service August 30, 2024 Assessment & Plan (1) Acute hypoxic respiratory failure: Plan: Acute hypoxic respiratory failure Denies prior history of CHF although did have a history of leg swelling which resolved on HCTZ. Denies any chest pain chest pressure or NC. Denies orthopnea Denies home oxygen requirement, denies feeling sick recently. Does have a leukocytosis of 13 which may be reactive in the setting of a hip fracture, no left shift is present Clinically looks near euvolemic to slightly dry. Mucous membranes are tacky, legs are without edema. JVD is not present. Creatinine slightly elevated. Will give gentle fluids and follow-up for reevaluation. BNP/echo pending CT with? Mild interstitial edema, more prominent at the bases? Atelectatic. Echo, troponin ordered. EKG is without acute ischemic changes. No lower extremity leg swelling, calf asymmetry, calf pain to suggest DVT. No tachycardia. Fall Mechanical fall, slipped on the stairs. No head strike/LOC. No blood thinner use. Hemoglobin stable, uptrending No intra-abdominal bleeding/solid organ injury on CT CTchest: Nondisplaced T12 vertebral body fracture as otherwise noted no additional traumatic findings of the chest Bilateral hilar lymphadenopathy/mediastinal lymphadenopathy recommended for 6- month repeat CT for stability. Few pulmonary nodules up to 8 mm which can be followed on follow-up CT OTILIA on CKD Baseline creatinine around 1.81.9 Admitting creatinine 2.06 Fluids as noted Trend daily, renally adjust medications as needed HCTZ held T12 fracture Reviewed with orthospine. No neurologic deficits. Recommended for TLSO brace after hip surgery, does not require transfer for this No focal neurologic deficits Lidocaine patch, Multimodal pain control Right hip fracture S/p fall Patient is not on antiplatelet or anticoagulants Orthopedics consulted Chronic anemia Mild, uptrending. No signs of acute bleeding on exam above Trend hemoglobin daily GERD Continue PPI Hyperlipidemia Continue statin DVT prophylaxis: SCDs. Heparin SQ postop CODE STATUS: Full code Disposition: M/T Diet: N.p.o. (2) Fracture of right hip: (3) Closed T12 fracture: (4) Hypertension: (5) Hypercholesterolemia: History of Present Illness Primary Care Provider: MICKY Huddleston Macho is an 88-year-old male with a past medical history of reflux, hypertension, anemia, hearing loss who slipped around 12-14 hours prior hospitalist assessment and fell down approximately 10 stairs without head strike or loss of consci ousness. He is not on any anticoagulants/blood thinners/antiplatelet agents. On ER evaluation he is found to have a right hip fracture. Macho is seen at the bedside. He reports that he got up in the middle of the night to go and get some pillows to help prevent/block his dog from going under the bed. On his way up the stairs carrying pillows he lost his footing and slipped and fell back down the stairs. Presented this morning with continued right hip and mid low back pain. He denies numbness/tingling of the extremities. No fever chills or sweats. He does not normally use oxygen but has been on 4 L since he arrived. He denies orthopnea and is laying flat comfortably. He denies lower extremity swelling recently. Reports he did have some scant lower extremity swelling in the past but this resolved with hydrochlorothiazide. He denies any history of heart attacks, heart failure, or Lasix use. He reports he normally goes up and down the stairs and is able to walk around independently with no limiting chest pain chest pressure or exertion. He has not been sick lately and denies fever chills sweats lightheadedness dizziness nausea vomiting and diarrhea. Medical History: Reviewed Medications: Reviewed Surgical History: Reviewed Family history: Reviewed Allergies: Reviewed Social History: Denies tobacco/alcohol/recreational drug Code Status: Full code Allergies Allergy/AdvReac Type Severity Reaction Status Date / Time lisinopril Allergy Severe elevated Verified 06/09/24 13:23 High Blood pressure - emergent Home Medications Medication Instructions Recorded Confirmed Type cholecalciferol (vitamin D3) 50 2,000 units PO QAM 01/27/19 08/30/24 History mcg (2,000 unit) tablet acetaminophen 650 mg 1,300 mg PO Q8H PRN pain 08/24/21 08/30/24 History tablet,extended release (Tylenol Arthritis Pain) glucosamine sulf dipot 1 cap PO BID 08/30/21 08/30/24 History chlr,msm,chond 550 mg-C 30 mg-az 1 mg capsule (Glucosamine Chondroitin) vit C 250 mg-vit E 90 mg-zinc 40 1 tab PO BID 08/30/21 08/30/24 History mg-copper 1 [id number] capsule (PreserVision AREDS-2) multivitamin (Multiple Vitamins 1 tab PO QAM 09/05/22 08/30/24 History tablet) peg 400-propylene glycol (PF) 0.4 1 drp ophthalmic (eye) BID PRN Dry 10/08/23 08/30/24 History %-0.3 % eye drops in a dropperette Eyes (Systane (PF)) simvastatin 40 mg tablet 40 mg PO QPM #90 tabs 12/10/23 08/30/24 Rx hydrochlorothiazide 12.5 mg capsule 12.5 mg PO DAILY #90 caps 12/13/23 08/30/24 Rx pantoprazole 40 mg tablet,delayed 40 mg PO QAM #90 tabs 12/28/23 08/30/24 Rx release amlodipine 5 mg tablet 5 mg PO QAM #90 tabs 02/21/24 08/30/24 Rx irbesartan 300 mg tablet 300 mg PO QAM HTN #90 tabs 04/29/24 08/30/24 Rx Past Med/Surg History Problem List Fracture of right hip (Acute) Closed T12 fracture (Acute) Fall (Acute) Acute hypoxic respiratory failure (Acute) Right inguinal hernia Proteinuria RUE numbness History of colon polyps Encounter for pre-operative examination Encounter for pre-operative examination Anemia (Acute) Benign colonic polyp (Acute) Eczema (Acute) Mitral regurgitation (Acute) Noise-induced hearing loss (Acute) Laryngopharyngeal reflux (Acute) Rotator cuff impingement syndrome of left shoulder (Acute) has had PT tx. Osteoarthritis of knee (Acute) Hypertension (Acute) Hypercholesterolemia (Acute) Actinic keratosis (Acute) Medical History Double vision with both eyes open Started around 03/02/23- seen by ophthalmology- bleeds in eyes noted worrisome for DM Reason for upcoming MRI>resolved as of interview on 10/08/23 History of skin cancer of unknown type removed in office Surgical History H/O right inguinal hernia repair (10/18/23) Right Open Inguinal Hernia Repair with Mesh(Right) - Colton Cartwright, DO History of removal of cyst (03/27/23) FINAL DIAGNOSIS In office procedure Dr. Cartwright Skin, posterior neck, excision: - Epidermal cyst. History of esophagogastroduodenoscopy (EGD) History of tooth extraction all teeth removed H/O inguinal hernia repair left History of arthroscopy of left knee History of colonoscopy last 08/2021 @ [facility] Family History Unknown Hypertension Brother Colon cancer Prostate cancer Father Colon cancer Sister Cancer Other No family history of adverse response to anesthesia Denies family history of Ovarian cancer Myocardial infarction Breast cancer Social History Smoking Status: Never smoker Second Hand Exposure: Yes (hx growing up to age 19); Do You Dip or Chew Tobacco: No; Hx Alcohol Use: No Hx Substance Use: No Preferred Language: Maori Communication Ability: Effective Visual Impairment: No Limitations Hearing Ability: Normal Hand Packer/Packager Required: No Beliefs That Will Affect Care: None marital status: Current Living Situation: Spouse current occupational status: retired 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 NAD. Cooperative. HEENT: Atraumatic, normocephalic. Vision/hearing intact Pulm: CTAB A&P. -wheezes, -rales, -rhonchi. Symmetrical chest rise. No increased work of breathing. No respiratory distress. Cardiac: RRR, -mrg. Radial pulses intact and symmetrical. Abdominal: Nontender, nondistended, soft. BS present. Ext: Ankle dorsi/plantar flexion 5/5, siding stapler strength and arm flexion 5/5 bilaterally. Sensation to soft touch intact in hands and feet without deficit. DP intact to palp bilaterally, cap refill brisk in the toe bilaterally. R hip TTP at the anterior hip. Results & Data Results & Data Vital Signs (Past 12 Hours) Vital Signs Temp Pulse Pulse Resp BP BP Pulse Ox 08/30/24 14:00 36.9 C 73 18 165/73 H 95 08/30/24 13:00 82 18 162/70 H 94 08/30/24 12:26 86 08/30/24 12:00 37 C 86 18 147/98 H 96 08/30/24 11:36 37 C 91 H 18 176/77 H 95 08/30/24 10:57 99 H 18 97 08/30/24 10:45 98 08/30/24 10:44 37 C 100 H 18 150/82 H 86 L 08/30/24 10:44 37 C 100 H 18 150/82 H 86 L O2 Del Method O2 Flow Rate 08/30/24 14:00 Nasal Cannula 4 08/30/24 13:00 Room Air 4 08/30/24 12:26 08/30/24 12:00 Nasal Cannula 4 08/30/24 11:36 Nasal Cannula 2 08/30/24 10:57 Nasal Cannula 5 08/30/24 10:45 Nasal Cannula 5 08/30/24 10:44 Room Air 86 08/30/24 10:44 Room Air PG Care Time/CCT Total # of Minutes Spent Total Time Spent with Patient: Total time spent is greater than 50% in coordination of care (as documented) at patient's floor/unit and/or counseling patient: Coding Level of Care Code 52872 INT INP/OBS CARE MIN Diagnoses Acute hypoxic respiratory failure J96.01 Fracture of right hip S72.001A Encounter type: initial encounter Fracture type: closed Closed T12 fracture S22.088A Encounter type: initial encounter Fracture morphology: other fracture Hypertension I10 Hypercholesterolemia E78.00 (2) Fracture of right hip Encounter type: initial encounter Fracture type: closed Qualified Code(s): S72.001A - Fracture of unspecified part of neck of right femur, initial encounter for closed fracture (3) Closed T12 fracture Encounter type: initial encounter Fracture morphology: other fracture Qualified Code(s): S22.088A - Other fracture of T11-T12 vertebra, initial encounter for closed fracture
[2024-08-30 15:22] LABS: Adenovirus PCR Not Detected (NotDetected); Bordetella parapertussis PCR Not Detected (NotDetected); Bordetella pertussis PCR Not Detected (NotDetected); Chlamydia pneumoniae PCR Not Detected (NotDetected); Coronavirus 229E PCR Not Detected (NotDetected); Coronavirus CoV-2 (COVID19)PCR Not Detected (NotDetected); Coronavirus HKU1 PCR Not Detected (NotDetected); Coronavirus NL63 PCR Not Detected (NotDetected); Coronavirus OC43PCR Not Detected (NotDetected); Human Metapneumovirus PCR Not Detected (NotDetected); Influenza A PCR Not Detected (NotDetected); Influenza B PCR Not Detected (NotDetected); Mycoplasma pneumoniae PCR Not Detected (NotDetected); Parainfluenza Virus 1 PCR Not Detected (NotDetected); Parainfluenza Virus 2 PCR Not Detected (NotDetected); Parainfluenza Virus 3 PCR Not Detected (NotDetected); Parainfluenza Virus 4 PCR Not Detected (NotDetected); Respiratory Syncytial VirusPCR Not Detected (NotDetected); Rhinovirus/Enterovirus PCR Not Detected (NotDetected)
[2024-08-30] MEDS: LACTATED RINGER'S 1,000 ML IV SCH (16:12)
[2024-08-30] MEDS ORDERED: bisacodyL 10 MG SUPP PR PRN (18:04)
[2024-08-30] MEDS ORDERED: MAGNESIUM HYDROXIDE SUSP 30 ML UDC PO PRN (18:04)
[2024-08-30] MEDS ORDERED: NALOXONE HCL 0.4 MG/1 ML VIAL/CARP IV PRN (18:04)
[2024-08-30] MEDS: MoRPHine SULFATE 4 MG/ML 1 ML CARP\\VIAL IV PRN (18:27)
--- NOTE | 2024-08-30 19:21 | Anesthesiology Consultation ---
Date of Service August 30, 2024 Assessment & Plan Chart Review Chart Review: Acceptable Risk for Surgery and Patient NOT seen in Pre Admission Testing Consults Requested cardiac ASA ASA4 Proposed Anesthesia Anesthesia Type: General History Surgery Operation Date: 08/31/24 07:00 Proposed Procedures p Bipolar Hip Prosthesis(Right) - Mahad Layne MD Height/Weight Height: 5 ft 10 in Weight: 93.2 kg Allergies Allergy/AdvReac Type Severity Reaction Status Date / Time lisinopril Allergy Severe elevated Verified 06/09/24 13:23 High Blood pressure - emergent Medications Home Medications Medication Instructions Recorded Confirmed Last Taken cholecalciferol (vitamin D3) 50 2,000 units PO QAM 01/27/19 08/30/24 10/17/23 07:00 mcg (2,000 unit) tablet acetaminophen 650 mg 1,300 mg PO Q8H PRN pain 08/24/21 08/30/24 10/16/23 07:00 tablet,extended release (Tylenol Arthritis Pain) glucosamine sulf dipot 1 cap PO BID 08/30/21 08/30/24 10/17/23 07:00 chlr,msm,chond 550 mg-C 30 mg-az 1 mg capsule (Glucosamine Chondroitin) vit C 250 mg-vit E 90 mg-zinc 40 1 tab PO BID 08/30/21 08/30/24 10/17/23 07:00 mg-copper 1 nm-[id number]-[id number] capsule (PreserVision AREDS-2) multivitamin (Multiple Vitamins 1 tab PO QAM 09/05/22 08/30/24 10/17/23 07:00 tablet) peg 400-propylene glycol (PF) 0.4 1 drp ophthalmic (eye) BID PRN Dry 10/08/23 08/30/24 10/17/23 07:00 %-0.3 % eye drops in a dropperette Eyes (Systane (PF)) simvastatin 40 mg tablet 40 mg PO QPM #90 tabs 12/10/23 08/30/24 Unknown hydrochlorothiazide 12.5 mg capsule 12.5 mg PO DAILY #90 caps 12/13/23 08/30/24 Unknown pantoprazole 40 mg tablet,delayed 40 mg PO QAM #90 tabs 12/28/23 08/30/24 Unknown release amlodipine 5 mg tablet 5 mg PO QAM #90 tabs 02/21/24 08/30/24 Unknown irbesartan 300 mg tablet 300 mg PO QAM HTN #90 tabs 04/29/24 08/30/24 Unknown Active Medications Generic Name Dose Route Start Last Admin Trade Name Freq PRN Reason Stop Dose Admin Lactated Ringer's 1,000 mls @ 80 mls/hr 08/30/24 15:30 08/30/24 16:12 Lr IV 08/31/24 15:29 80 mls/hr .[id number] EDMOND Administration Morphine Sulfate 4 mg 08/30/24 18:04 08/30/24 18:27 Morphine Sulfate 4 Mg/Ml 1 Ml Carp\Vial IV 09/13/24 18:03 4 mg Q2H PRN Administration Severe Pain (7,8,9,10) on NRS Past Medical History Medical History Double vision with both eyes open Started around 03/02/23- seen by ophthalmology- bleeds in eyes noted worrisome for DM Reason for upcoming MRI>resolved as of interview on 10/08/23 History of skin cancer of unknown type removed in office anemia HTN HLD Gerd RUE numbness DJD ? Hx/o mitral regug OTILIA on CKD closed T12 Fx acute hypoxic resp failure mild interstitial pum edema eczema Exercise / Class Metabolic Activity III < 4 Walking/Shop/Light housework Past Family History Family History Unknown Hypertension Brother Colon cancer Prostate cancer Father Colon cancer Sister Cancer Other No family history of adverse response to anesthesia Denies family history of Ovarian cancer Myocardial infarction Breast cancer Past Surgical History Surgical History H/O right inguinal hernia repair (10/18/23) Right Open Inguinal Hernia Repair with Mesh(Right) - Colton Cartwright DO History of removal of cyst (03/27/23) FINAL DIAGNOSIS In office procedure Dr. Cartwright Skin, posterior neck, excision: - Epidermal cyst. History of esophagogastroduodenoscopy (EGD) History of tooth extraction all teeth removed H/O inguinal hernia repair left History of arthroscopy of left knee History of colonoscopy last 08/2021 @ [facility] Past Anesthesia History No Hx of Anesthesia Complications and No Family Hx of Anesthesia Complications History of PONV No Hx of PONV and No Hx of Motion Sickness Social History Smoking Status: Never smoker Do You Dip or Chew Tobacco: No Hx Alcohol Use: No Hx Substance Use: No substance use type: does not use Physical Exam Vital Signs Last Vital Signs Temp 36.9 C 08/30/24 14:00 Pulse 77 08/30/24 17:10 Resp 12 08/30/24 17:10 BP 157/89 H 08/30/24 17:10 Pulse Ox 93 08/30/24 17:10 O2 Del Method Nasal Cannula 08/30/24 17:20 O2 Flow Rate 4 08/30/24 17:20 Testing Laboratory Results 08/30/24 10:59 08/30/24 10:59 PT 10.8 Seconds (9.0-12.0) 08/30/24 10:59 INR 1.0 (0.9-1.1) 08/30/24 10:59 APTT 28 Seconds (21-31) 08/30/24 10:59 Blood Type Cancelled 08/30/24 11:02 Blood Type O Positive 08/30/24 11:02 Antibody Screen Cancelled 08/30/24 11:02 Antibody Screen NEGATIVE 08/30/24 11:02 08/30/24 11:02 POC Glucose (other) 124 H Electrocardiogram Date: 08/30/24 Findings: + NSR @ (@ 100) Chest X-Ray Date: 08/30/24 Findings: + NAD
--- NOTE | 2024-08-30 19:23 | XCELERA ---
[id number] \\[id number]}___[id number]
[2024-08-30] MEDS: ACETAMINOPHEN 1,000 MG/100 ML VIAL IV PRN (19:44)
[2024-08-30] MEDS: SIMVASTATIN 40 MG TAB PO SCH (19:49)
--- NOTE | 2024-08-30 20:58 | Orthopedic Consultation ---
Date of Service August 30, 2024 Assessment & Plan (1) Fracture of right hip: 88-year-old relatively healthy gentleman status post a fall with displaced femoral neck fracture. He is also got a minimal compression fracture of T12. Plan: We discussed treatment option with the patient and his family extensively. Certainly this is some that would benefit from surgical management. He has been admitted by the medicine service. We are going to proceed with a right hip arthroplasty. He has no pre-existing hip arthritis and we will plan on doing a cemented bipolar hip arthroplasty for the risks and benefits of t his procedure explained. They understand informed consent was obtained. Will keep him n.p.o. after midnight. DVT prophylaxis will be teds, SCDs, aspirin postoperatively. (2) Closed T12 fracture: (3) Fall: History of Present Illness Reason for Consultation: . Right hip fracture. Requesting Physician: . Attending Physician: Meng Haynes MD . The patient is an 88-year-old relatively healthy gentleman who sustained injury to his hip last evening. He apparently fell going down the steps. He can to crawl to self into bed and then had to get up to go to the bathroom and had trouble doing that. He spent most of the night on the floor. He was brought to emergency room this morning where x-rays show displaced femoral neck fracture. He has been admitted by the medicine service. No other injuries. Describes some mild back pain. No head injury no neck pain. No loss of consciousness. Denies any significant medical history. No chest pain or shortness of breath. He has never been in the hospital before. No previous surgeries. No pre- existing hip pain. Allergies Allergy/AdvReac Type Severity Reaction Status Date / Time lisinopril Allergy Severe elevated Verified 06/09/24 13:23 High Blood pressure - emergent Home Medications Medication Instructions Recorded Confirmed Type cholecalciferol (vitamin D3) 50 2,000 units PO QAM 01/27/19 08/30/24 History mcg (2,000 unit) tablet acetaminophen 650 mg 1,300 mg PO Q8H PRN pain 08/24/21 08/30/24 History tablet,extended release (Tylenol Arthritis Pain) glucosamine sulf dipot 1 cap PO BID 08/30/21 08/30/24 History chlr,msm,chond 550 mg-C 30 mg-az 1 mg capsule (Glucosamine Chondroitin) vit C 250 mg-vit E 90 mg-zinc 40 1 tab PO BID 08/30/21 08/30/24 History mg-copper 1 nt-elrbey-[id number] capsule (PreserVision AREDS-2) multivitamin (Multiple Vitamins 1 tab PO QAM 09/05/22 08/30/24 History tablet) peg 400-propylene glycol (PF) 0.4 1 drp ophthalmic (eye) BID PRN Dry 10/08/23 08/30/24 History %-0.3 % eye drops in a dropperette Eyes (Systane (PF)) simvastatin 40 mg tablet 40 mg PO QPM #90 tabs 12/10/23 08/30/24 Rx hydrochlorothiazide 12.5 mg capsule 12.5 mg PO DAILY #90 caps 12/13/23 08/30/24 Rx pantoprazole 40 mg tablet,delayed 40 mg PO QAM #90 tabs 12/28/23 08/30/24 Rx release amlodipine 5 mg tablet 5 mg PO QAM #90 tabs 02/21/24 08/30/24 Rx irbesartan 300 mg tablet 300 mg PO QAM HTN #90 tabs 04/29/24 08/30/24 Rx Past Med/Surg History Problem List Fracture of right hip (Acute) Closed T12 fracture (Acute) Fall (Acute) Acute hypoxic respiratory failure (Acute) Right inguinal hernia Proteinuria RUE numbness History of colon polyps Encounter for pre-operative examination Encounter for pre-operative examination Anemia (Acute) Benign colonic polyp (Acute) Eczema (Acute) Mitral regurgitation (Acute) Noise-induced hearing loss (Acute) Laryngopharyngeal reflux (Acute) Rotator cuff impingement syndrome of left shoulder (Acute) has had PT tx. Osteoarthritis of knee (Acute) Hypertension (Acute) Hypercholesterolemia (Acute) Actinic keratosis (Acute) Medical History Double vision with both eyes open Started around 03/02/23- seen by ophthalmology- bleeds in eyes noted worrisome for DM Reason for upcoming MRI>resolved as of interview on 10/08/23 History of skin cancer of unknown type removed in office Surgical History H/O right inguinal hernia repair (10/18/23) Right Open Inguinal Hernia Repair with Mesh(Right) - Colton Cartwright, History of removal of cyst (03/27/23) FINAL DIAGNOSIS In office procedure Dr. Cartwright Skin, posterior neck, excision: - Epidermal cyst. History of esophagogastroduodenoscopy (EGD) History of tooth extraction all teeth removed H/O inguinal hernia repair left History of arthroscopy of left knee History of colonoscopy last 08/2021 @ [facility] Family History Unknown Hypertension Brother Colon cancer Prostate cancer Father Colon cancer Sister Cancer Other No family history of adverse response to anesthesia Denies family history of Ovarian cancer Myocardial infarction Breast cancer Social History Smoking Status: Never smoker Second Hand Exposure: Yes (hx growing up to age 19); Do You Dip or Chew Tobacco: No; Hx Alcohol Use: No Hx Substance Use: No Preferred Language: Cypriot Communication Ability: Effective Visual Impairment: No Limitations Hearing Ability: Normal [employer] Certified Network Professional Required: No Beliefs That Will Affect Care: None marital status: Current Living Situation: Spouse current occupational status: retired 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 Physical Exam . Physical examination was a pleasant elderly male. He is lying in bed and looks pretty comfortable. He is in no acute distress. Examination of the right hip and leg reveals the leg to be slightly shortened and actually rotated. No bruising or swelling. No knee effusion. Can dorsiflex and plantarflex his foot appropriately. He is got marked pain with any type of hip motion. He is neurologically intact. Results & Data Results & Data Laboratory Results . Diagnostic Findings . X-rays of the right hip and femur were reviewed. Showed displaced femoral neck fracture. No signs of pre-existing hip arthritis. Patient has a CT scan of his abdomen pelvis were reveals a fairly small anterior compression fracture of the T12 vertebral body. No signs of middle or posterior column involvement. PG Care Time/CCT Total # of Minutes Spent Total Time Spent with Patient: Total time spent is greater than 50% in coordination of care (as documented) at patient's floor/unit and/or counseling patient: Coding Level of Care Code 20683 IN/OBS CONSULT LVL 5,80M Diagnoses Fracture of right hip S72.001A Encounter type: initial encounter Fracture type: closed Closed T12 fracture S22.088A Encounter type: initial encounter Fracture morphology: other fracture Fall W19.XXXA Encounter type: initial encounter (1) Fracture of right hip Encounter type: initial encounter Fracture type: closed Qualified Code(s): S72.001A - Fracture of unspecified part of neck of right femur, initial encounter for closed fracture (2) Closed T12 fracture Encounter type: initial encounter Fracture morphology: other fracture Qualified Code(s): S22.088A - Other fracture of T11-T12 vertebra, initial encounter for closed fracture (3) Fall Encounter type: initial encounter Qualified Code(s): W19.XXXA - Unspecified fall, initial encounter
[2024-08-31] MEDS: MoRPHine SULFATE 2 MG/ML CARP IV PRN (04:49)
--- NOTE | 2024-08-31 07:18 | History & Physical Bridge Note ---
Date of Service August 31, 2024 History & Physical Bridge Note I have examined the patient, reviewed the History & Physical and in the interval since the performance of the History & Physical I have noted the following changes of clinical significance: no changes noted
--- NOTE | 2024-08-31 08:01 | Cardiology Consultation ---
Date of Consultation August 31, 2024 Assessment & Plan (1) Acute hypoxic respiratory failure: (2) Elevated troponin: (3) Hypertension: (4) First degree atrioventricular block by electrocardiogram: Plan 1. Hypoxia: Based on measurements in his chart (as recently as June 09, 2024) this is a new finding. He could not be evaluated for pulmonary embolism due to his increased creatinine and risk of dye, however he does have a suggestion of pulmonary congestion on his CT scan and his BNP is somewhat elevated. His blood pressure is markedly elevated although his left ventricular function is normal and he does have left ventricular hypertrophy. Although a little bit hard to evaluate it is possible that his hypoxia is due to diastolic heart failure, possibly in the setting of underlying lung disease but that does not appear to have been evident several months ago. This should not interfere with surgery but I would be cautious with blood products and IV fluids. 2. Elevated troponin: This is mildly elevated and could well be due to stress and significant hypertension, there is no evidence of acute infarction on his electrocardiogram and the trend does not suggest an acute infarction although the second troponin measurement was slightly higher than the first. I would at least repeat a second, if that is down I would probably not pursue any further evaluation. 3. Hypertension: His blood pressure is significantly elevated and appears to have been in the past as well, it is probably worse now due to stress. This will probably need to be better controlled but should not interfere with surgery. 4. First-degree AV block he has borderline first-degree AV block on electrocardiography and this is also seen on telemetry. He has not had higher grade AV block. This could indicate conduction system disease, conceivably this could identify a cause of his fall other than a mechanical fall but based on his history that does not seem to be the case. I would keep him on telemetry if possible while he is here in case he does have intermittent higher degree AV block. History of Present Illness Reason for Consultation: Possible pulmonary edema, hip surgery planned Attending Physician: Garcia Jimenez DO History of Present Illness This is an 88-year-old male who presented with a mechanical fall resulting in a right hip fracture and a T12 fracture and he is scheduled for hip surgery. He has a number of medical issues including hypertension, anemia, and chronic kidney disease but no known cardiac history. On presentation here he was noted to be hypoxic (86% on room air, greater than 90% on nasal cannula) and his initial chest x-ray showed no cardiopulmonary findings, a chest CT without contrast (due to kidney disease) suggested mild cardiomegaly and mild interstitial pulmonary edema. His BNP was slightly elevated at 284. He is mildly anemic (hemoglobin 11.8), his creatinine was slightly higher than baseline (2.06). An echocardiogram done on August 30, 2024 showed normal left ventricular size and systolic function with an ejection fraction of 55 to 60% and no regional wall motion abnormalities. Mild concentric left ventricular hypertrophy and moderate pulmonary hypertension. His presenting electrocardiogram shows sinus rhythm at 100 bpm with borderline first-degree AV block but otherwise normal. High-sensitivity troponin is stable but elevated at 66.1 on presentation and 68.8 three hours later. He describes clearly falling, he denies symptoms such as lightheadedness, dizziness or presyncope to suggest an arrhythmia. He has had no cardiovascular symptoms recently and denies shortness of breath, change in exercise ability or exertional chest discomfort. He has not had edema recently, historically he did when some adjustments were made to his blood pressure medications but that has not been an issue recently. He is not aware of a weight change. Allergies Allergy/AdvReac Type Severity Reaction Status Date / Time lisinopril Allergy Severe elevated Verified 06/09/24 13:23 High Blood pressure - emergent Home Medications Medication Instructions Recorded Confirmed Type cholecalciferol (vitamin D3) 50 2,000 units PO QAM 01/27/19 08/30/24 History mcg (2,000 unit) tablet acetaminophen 650 mg 1,300 mg PO Q8H PRN pain 08/24/21 08/30/24 History tablet,extended release (Tylenol Arthritis Pain) glucosamine sulf dipot 1 cap PO BID 08/30/21 08/30/24 History chlr,msm,chond 550 mg-C 30 mg-az 1 mg capsule (Glucosamine Chondroitin) vit C 250 mg-vit E 90 mg-zinc 40 1 tab PO BID 08/30/21 08/30/24 History mg-copper 1 xd-srumrl-zxidci capsule (PreserVision AREDS-2) multivitamin (Multiple Vitamins 1 tab PO QAM 09/05/22 08/30/24 History tablet) peg 400-propylene glycol (PF) 0.4 1 drp ophthalmic (eye) BID PRN Dry 10/08/23 08/30/24 History %-0.3 % eye drops in a dropperette Eyes (Systane (PF)) simvastatin 40 mg tablet 40 mg PO QPM #90 tabs 12/10/23 08/30/24 Rx hydrochlorothiazide 12.5 mg capsule 12.5 mg PO DAILY #90 caps 12/13/23 08/30/24 Rx pantoprazole 40 mg tablet,delayed 40 mg PO QAM #90 tabs 12/28/23 08/30/24 Rx release amlodipine 5 mg tablet 5 mg PO QAM #90 tabs 02/21/24 08/30/24 Rx irbesartan 300 mg tablet 300 mg PO QAM HTN #90 tabs 04/29/24 08/30/24 Rx Patient History Medical History Double vision with both eyes open Started around 03/02/23- seen by ophthalmology- bleeds in eyes noted worrisome for DM Reason for upcoming MRI>resolved as of interview on 10/08/23 History of skin cancer of unknown type removed in office Surgical History H/O right inguinal hernia repair (10/18/23) Right Open Inguinal Hernia Repair with Mesh(Right) - Colton Cartwright DO History of removal of cyst (03/27/23) FINAL DIAGNOSIS In office procedure Dr. Cartwright Skin, posterior neck, excision: - Epidermal cyst. History of esophagogastroduodenoscopy (EGD) History of tooth extraction all teeth removed H/O inguinal hernia repair left History of arthroscopy of left knee History of colonoscopy last 08/2021 @ [facility] Family History Unknown Hypertension Brother Colon cancer Prostate cancer Father Colon cancer Sister Cancer Other No family history of adverse response to anesthesia Denies family history of Ovarian cancer Myocardial infarction Breast cancer Social History Smoking Status: Never smoker Second Hand Exposure: Yes (hx growing up to age 19); Do You Dip or Chew Tobacco: No; Hx Alcohol Use: No Hx Substance Use: No Preferred Language: Vietnamese Communication Ability: Effective Visual Impairment: No Limitations Hearing Ability: Normal Financial Services Technician Required: No Beliefs That Will Affect Care: None marital status: Current Living Situation: Spouse current occupational status: retired 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 He is supine in bed. HEENT: Unremarkable Neck: No jugular venous distention, carotid pulses are normal and equal bilaterally without bruits. Pulmonary: Clear to auscultation bilaterally. Cardiac: Regular rhythm with no murmur, gallop or rub. Abdomen: Soft, nontender with normal bowel sounds. Extremities: No edema. Neurologic: No focal findings. Skin: No rash, ecchymoses or petechiae. Results & Data Vital Signs (Past 12 Hours) Vital Signs Temp Pulse Pulse Resp BP Pulse Ox O2 Del Method 08/31/24 03:03 36.9 C 77 18 179/72 H 94 Nasal Cannula 08/31/24 00:04 77 08/30/24 22:43 37 C 78 16 161/68 H 94 Nasal Cannula 08/30/24 22:09 Room Air O2 Flow Rate 08/31/24 03:03 4 08/31/24 00:04 08/30/24 22:43 4 08/30/24 22:09 Laboratory Results Cardiac Enzymes 08/30/24 08/30/24 08/30/24 Range/Units 10:59 15:53 18:25 AST 27 (13-39) U/L Troponin I High Sens 66.1 H* 68.8 H* (0-20) pg/ml B-Natriuretic Peptide 284 H (0-100) pg/ml Coagulation 08/30/24 08/30/24 Range/Units 10:59 15:53 PT 10.8 (9.0-12.0) Seconds APTT 28 (21-31) Seconds B-Natriuretic Peptide 284 H (0-100) pg/ml CBC 08/30/24 Range/Units 10:59 WBC 13.14 H (4.8-10.8) K/ul RBC 3.69 L (4.70-6.10) M/uL Hgb 11.8 L (14.0-18.0) g/dl Hct 35.0 L (42.0-52.0) % Plt Count 109 L (130-400) K/uL Neut # (Auto) 11.47 H (1.40-6.50) K/uL Lymph # (Auto) 0.97 L (1.20-3.40) K/uL Person # (Auto) 0.56 (0.11-0.59) K/uL Eos # (Auto) 0.03 (0.00-0.50) K/uL Baso # (Auto) 0.03 (0.00-0.20) K/uL Comprehensive Metabolic Panel 08/30/24 Range/Units 10:59 Sodium 142 (136-145) mmol/L Potassium 4.4 (3.5-5.1) mmol/L Chloride 107 (98-107) mmol/L Carbon Dioxide 26 (21-32) mmol/L BUN 36 H (6-23) mg/dl Creatinine 2.06 H (0.6-1.4) mg/dl Glucose 123 H (70-99(Fasting)) mg/dl Calcium 9.3 (8.6-10.3) mg/dl AST 27 (13-39) U/L ALT 16 (7-52) U/L Alkaline Phosphatase 73 (34-104) U/L Total Protein 7.2 (6.0-8.3) gm/dl Albumin 3.9 (3.4-5.0) gm/dl Intake and Output 08/30/24 08/31/24 08/31/24 22:59 06:59 14:59 Intake Total 100 / 2200 1000 / 2200 Output Total 400 / 850 450 / 850 Balance -300 / 1350 550 / 1350 Intake: IV 100 / 2200 1000 / 2200 Acetaminophen 1,000 mg In 100 100 / 100 ml @ 400 mls/hr IV Q8H PRN Rx#: [id number] Lactated Ringer's 1,000 ml @ 80 1000 / 1000 mls/hr IV .[id number] EDMOND Rx#: [id number] Output: Urine Amount (Catheter) 400 / 850 450 / 850 Driscoll/Indwelling 400 / 850 450 / 850 Other: Other Intake Source npo Bathroom Weight 93.2 kg 86.8 kg Weight Measurement Method Built in [facility] Diagnostic Findings Telemetry: Sinus rhythm, rate typically in the 80s with first-degree AV block. PG Care Time/CCT Total # of Minutes Spent Total Time Spent with Patient: Total time spent is greater than 50% in coordination of care (as documented) at patient's floor/unit and/or counseling patient: Coding Level of Care Code 65450 INT INP/OBS CARE 3/75MIN Diagnoses Acute hypoxic respiratory failure J96.01 Elevated troponin R79.89 Hypertension I10 First degree atrioventricular block by electrocardiogram I44.0
[2024-08-31 08:42] LABS: BUN Creatinine Ratio 18.3 (10-20); Calcium 8.4 mg/dl (8.6-10.3); Creatinine Clr Calc Pharmacy 26.6 ml/min; Potassium 4.4 mmol/L (3.5-5.1)
[2024-08-31] MEDS: LIDOCAINE 5% 1 PATCH TD SCH (08:42)
[2024-08-31] MEDS: amLODIPine BESYLATE 5 MG TAB PO SCH (08:43)
[2024-08-31] MEDS: CEROVITE ADV FORMULA TAB PO SCH ×2 (08:43→20:19)
[2024-08-31] MEDS: PANTOprazole 40 MG TAB PO SCH (08:44)
[2024-08-31 08:49] LABS: Troponin I High Sensitivity 91.3 pg/ml (0-20)
[2024-08-31 08:59] LABS: Hematocrit (blood only) 32.5 % (42.0-52.0); Hemoglobin 10.6 g/dl (14.0-18.0); Mean Corpuscular Hemoglobin 31.6 pg (25.0-34.0); Mean Corpuscular Hgb Conc 32.6 g/dL (32.0-36.0); Mean Platelet Volume 9.6 fL (9.4-12.4); Platelet Count 91 K/uL (130-400); Platelet Estimate Decreased (Normal); RDW Coefficient of Variation 13.2 % (11.5-14.5); RDW Standard Deviation 47.2 fL (36.4-46.3); Red Blood Count 3.35 M/uL (4.70-6.10); White Blood Count 8.84 K/ul (4.8-10.8)
[2024-08-31] MEDS ORDERED: LIDOCAINE 2% 2 ML VIAL/AMP(20MG/ML) INFIL ONE (09:20)
[2024-08-31] MEDS ORDERED: CISATRACURIUM BESYLATE IV SOLN 2 MG/ML 10 ML VIAL IV ONE (09:20)
[2024-08-31] MEDS ORDERED: ONDANSETRON INJ 2 MG/ML 2 ML VIAL ONE (09:20)
[2024-08-31] MEDS ORDERED: PROPOFOL IV EMULSION 10 MG/ML 20 ML VIAL IV ONE (09:20)
[2024-08-31] MEDS ORDERED: DEXAMETHASONE SOD INJ 4 MG/ML VIAL ONE (09:20)
[2024-08-31] MEDS ORDERED: fentaNYL citrate PF 100 MCG/2 ML VIAL ONE ×2 (09:22→10:54)
[2024-08-31] MEDS ORDERED: ceFAZolin 330 MG/ML 1 GM VIAL ONE (09:28)
[2024-08-31] MEDS: ceFAZolin 2000MG 2,000 MG/15 ML SYR IV ONE (10:03)
[2024-08-31] MEDS: TRANEXAMIC ACID / 0.7% NACL 1,000 MG/100 ML BAG IV ONE (10:04)
[2024-08-31] MEDS ORDERED: PHENYLEPHRINE HCL 10 MG/ML VIAL ONE ×2 (10:11→10:47)
--- NOTE | 2024-08-31 10:11 | Hospitalist Progress Note ---
"Date of Service August 31, 2024 Assessment & Plan (1) Fracture of right hip: (2) Closed T12 fracture: (3) Fall: (4) Acute hypoxic respiratory failure: (5) First degree atrioventricular block by electrocardiogram: (6) Acute kidney injury: Plan Macho is an 88M w/ PMH of anemia, MR, hearing loss, reflux, osteoarthritis, HTN, hypercholesterolemia, and actinic keratosis who presented for a fall at home and was admitted for management of a hip fracture. AHRF | New O2 requirement - No hx of CHF or home O2 need Asymptomatic - no CP, edema, claudication, or orthopnea Euvolemic to dry on exam, w/ slight creatinine elevation EKG negative, troponin rising, though potentially demand BNP mildly elevated - Leukocytosis w/o L shift Potential a/w hip fracture - No calf pain or asymmetric edema to suggest DVT No chest pain, dyspnea or tachycardia present to suggest PE - CT Chest w/o con 1. Acute nondisplaced T12 vertebral body fracture 2. No additional acute traumatic findings within the chest. 3. Mildly enlarged mediastinal lymph nodes and suspected enlarged bilateral hilar lymph nodes. This lymphadenopathy is nonspecific and a chest CT in 6 months to ensure stability is recommended. 4. A few pulmonary nodules measuring up to 8 mm which can be assessed on follow-up CT to ensure stability. 5. Mild cardiomegaly and mild interstitial pulmonary edema. Mechanical Fall T12 Vertebral Fracture | R Hip Fracture No head strike/LOC. CT Head w/o acute findings, though extensive small vessel disease - No blood thinner use. Hemoglobin stable, uptrending. - CT Abdomen and Pelvis 1. Acute displaced subcapital right femoral neck fracture. 2. Acute nondisplaced T12 vertebral body fracture which involves the anterior cortex and superior endplate. No retropulsion. No extension into the posterior elements. 3. No evidence for acute traumatic injury to the solid abdominal viscera on unenhanced exam. - Scheduled for Orthopedic intervention for R Hip Fracture 3/2 Not on antiplatelets or anticoagulants - TLSO brace recommended after hip surgery for T12 Vertebral Fracture No neurologic defects, no displacement - Pain Control: Tylenol, Lidocaine Patch, Morphine OTILIA on CKD Baseline creatinine around 1.81.9, admitting creatinine 2.06 Fluids as noted HCTZ held Chronic anemia Mild, uptrending. No signs of acute bleeding on exam above Trend hemoglobin daily GERD Continue PPI Hyperlipidemia Continue statin DVT prophylaxis: SCDs. Heparin SQ postop CODE STATUS: Full code Disposition: M/T Diet: N.p.o. Admission and Anticipated Discharge Date Admission Date: August 30, 2024 Supervising Physician Co-Signing Physician Notes I personally examined the patient and verified all freitas points of history and exam, discussed case, and agree with decision making with Dr Ibanez seen post op no pain. no sob. mostly just c/o dry mouth vitals noted nad heent nc at mm dry. lungs clear but quiet no r/r/w. pulse ox rises 1-2% just with a few inhales on incentive spirometry. no focal neuro deficits hip fx - now s/p repair. fell down stairs - doubt osteoporotic given mechanism of injury. PT/OT eval and treat. probably will need rehab fall - fortunately no other injuries noted. ongoing f/u serial exams etc hypoxia - no symptoms. suspect predominantly atelectasis. possibly could also have some element of HFpEF but improving w incentive spirometry DVT proph - asa bid otherwise as above Subjective 3/2: Patient resting comfortably in bed pending surgical intervention. Notes pain remains uncontrolled at 8/10, but otherwise he has no concerns. States that he slipped down a flight of 10 stairs at home, believes he simply slipped from his shoe as his slippers were left at the top of the stairs. Patient is otherwise active at baseline. Denies chest pain, dyspnea, headaches or vision changes. He has not experienced any recent edema, claudication, or orthopnea. at bedside pending intervention. Physical Exam Physical Exam: Constitutional:NAD, pleasant. Alert. HEENT: Unremarkable Neck: Soft, no LAD, no JVD Pulmonary: Non-labored, CTAB Cardiac: Regular rhythm with no murmur, gallop or rub. Abdomen: Soft, nontender with normal bowel sounds. Extremities: No LE edema, RLE externally rotated w/o discoloration or erythema. Neurologic: No focal findings. Skin: No rash, ecchymoses or petechiae. Results & Data Results & Data Vital Signs (Past 12 Hours) Vital Signs Temp Pulse Pulse Resp BP Pulse Ox O2 Del Method 08/31/24 07:59 36.8 C 86 16 191/76 H 91 Nasal Cannula 08/31/24 06:27 91 H 08/31/24 03:03 36.9 C 77 18 179/72 H 94 Nasal Cannula 08/31/24 00:04 77 08/30/24 22:43 37 C 78 16 161/68 H 94 Nasal Cannula 08/30/24 22:09 Room Air O2 Flow Rate 08/31/24 07:59 4 08/31/24 06:27 08/31/24 03:03 4 08/31/24 00:04 08/30/24 22:43 4 08/30/24 22:09 Resident Activity Tracking Resident Involvement: Resident Care Provided Care Provided: Adult Hospital Medicine (1) Fracture of right hip Encounter type: initial encounter Fracture type: closed Qualified Code(s): S72.001A - Fracture of unspecified part of neck of right femur, initial encounter for closed fracture (2) Closed T12 fracture Encounter type: initial encounter Fracture morphology: other fracture Qualified Code(s): S22.088A - Other fracture of T11-T12 vertebra, initial encounter for closed fracture (3) Fall Encounter type: initial encounter Qualified Code(s): W19.XXXA - Unspecified fall, initial encounter"
[2024-08-31] MEDS: ROPIV 0.5% 246mg, Ketorolac 30mg, EPINEPHrine 0.5mg in NSS INFIL ONE (10:39)
[2024-08-31] MEDS ORDERED: PHENYLEPHRINE 100MCG/ML 5ML SYR ONE (10:48)
[2024-08-31] MEDS ORDERED: ePHEDrine sulfate 50 MG/ML AMP ONE (10:48)
[2024-08-31] MEDS ORDERED: NEOSTIGMINE METHYLSULFATE 1 MG/ML 10ML VIAL ONE (11:27)
[2024-08-31] MEDS ORDERED: GLYCOPYRROLATE 0.2 MG/ML VIAL ONE ×3 (11:27→11:28)
--- NOTE | 2024-08-31 11:57 | Operative Report ---
PG Post Operative Report Pre & Post Diagnosis Operation Date: 08/31/24 09:00 Pre-Op Diagnosis: Right displaced femoral neck fracture. Post-Op Diagnosis: Right displaced femoral neck fracture. I identified the patient and participated in the time-out.: Yes Procedure Operation Date: 08/31/24 09:00 Actual Procedures p Bipolar right hip arthroplasty cemented.(Right) - Mahad Layne MD Surgeon Mahad Layne MD Sr. Merchandise Planner Garcia Sparrow PA-C Estimated Blood Loss 100 Findings Consistent with Post-Op Diagnosis Specimens Right femoral head sent for pathology. Anesthesia Type General Complications none Disposition Accompanied Patient To Recovery: No Indications Patient is an 88-year-old fairly active gentleman who sustained a fall down the steps 2 days ago. He had acute onset of pain and had difficulty ambulating. Things got progressively worse and he had trouble getting up even off the ground. He was eventually brought to the emergency room x-rays of the displaced femoral neck fracture. The patient was admitted by the medicine service, medically optimized, and indicated for surgical repair. Description of Procedure Operative implants consists of: 1. Biomet size 9 echo cemented high offset femoral stem. 2. 11 mm distal centralizer. 3. 0 neck/28 mm articular ball. 4. 56 mm bipolar shell and liner. The patient was taken to the op room, identified, placed on the operating table in the supine position. All conductors were appropriately padded. IV antibiotics fibra anesthesia team. A general anesthetic was implemented. The patient was then placed in the left lateral cubitus position. An axillary roll was placed. A stool Birkett position was used for positioning. The right hip and leg were then scrubbed with Hibiclens, prepped with ChloraPrep and draped in the usual sterile fashion. A posterior lateral approach to the right hip was then performed through a curvilinear incision centered over the greater trochanteric. Sharp dissection was got through subcutaneous tissue dental of the IT band gluteal fascia. The IT band gluteal fascia was sized longitudinally in line with skin incision. The piriformis and external rotators were then carefully taken off the posterior aspect the hip joint capsule. The posterior hip capsule was then incised and tagged for later repair. Hip was then internally rotated. A femoral neck osteotomy cut was made 5 cm above the lesser trochanter. This was made below the fracture site. The femoral neck fragment was removed. The femur was retracted anteriorly. The femoral head was removed. It was sized to a size 56. We sized the acetabulum to a 56. Attention drawn the femur. The proximal femur was entered with a cookie cutter followed by canal finder and lateralizing reamer. I then broached beginning with size 7 progressing up to 11. Excellent fit 11. We trialed the hip and the neutral articular ball seemed to recreate appropriate soft tissue tension, leg lengths, and excellent stabil ity. We elect to place these implants. All trial implants were removed. The cement restrictor was placed distally. A double batch Palacos G cement was mixed. It was injected in the canal. A size 9 high offset cemented femoral stem was placed. A 0/28 mm articular ball was then placed followed by bipolar shell and liner once the cement hardened. The hip was located once again found to be stable. Attention was then drawn toward closing. The wounds irrigated coconuts of pulsatile lavage solution. We did inject locally with 50 cc of Ortho mix. The posterior capsule was then repaired with #2 Tycron suture. The piriformis and external rotators were then repaired to the posterior aspect of the hip abductors with #2 Tycron suture. The IT band gluteal fascia was then closed with #1 PDS suture in running fashion. The subcutaneous tissues were then closed in 2 layers the deep layer #1 Vicryl suture and subcutaneous tissues with 2 Dexon suture in a buried interrupted fashion. Skin was closed skin veronika. Leg was then cleaned and dried a sterile dressing with Xeroform, 4 fours, ABD pad and foam tape was applied. Patient then transferred to the recovery in stable condition. Patient tolerated procedure well and there were no complications. Garcia Sparrow, my physician assistant professor of drama, was present for the entire procedure. His assistance was required for proper patient positioning, prepping and draping, surgical exposure, retraction, perform the technical details of the operation, placement of the implants, closure of the incision site, and placement of the sterile postoperative bandage. I attest to the content of the Intraoperative Record and any orders documented therein. Any exceptions are noted below.
[2024-08-31] MEDS ORDERED: ATROPINE SULFATE 0.1 MG/ML 10ML SYR IV PRN (12:13)
[2024-08-31] MEDS ORDERED: LABETALOL HCL IV 5 MG/ML 20ML IV PRN (12:13)
[2024-08-31] MEDS ORDERED: ePHEDrine sulfate 50 MG/ML AMP IV PRN (12:13)
[2024-08-31] MEDS ORDERED: HYDROmorphone INJ 1 MG/ML SYRINGE IV PRN (12:13)
[2024-08-31] MEDS ORDERED: fentaNYL citrate PF 100 MCG/2 ML VIAL IV PRN (12:13)
[2024-08-31] MEDS ORDERED: PROMETHAZINE HCL 6.25 MG in SODIUM CHLORIDE 0.9% 50 ML IV PRN (12:13)
[2024-08-31] MEDS ORDERED: ONDANSETRON INJ 2 MG/ML 2 ML VIAL IV PRN (12:13)
[2024-08-31] MEDS ORDERED: NALOXONE HCL 0.4 MG/1 ML VIAL/CARP IV PRN (12:13)
--- NOTE | 2024-08-31 12:38 | Anesthesiology Progress Note ---
Date of Service August 31, 2024 Anesthesia Post Procedure Vital Signs Vital Signs: Temp Pulse Pulse Pulse Resp BP BP 08/31/24 12:30 88 12 150/5 H 08/31/24 12:20 88 20 159/60 H 08/31/24 12:10 89 16 149/53 H 08/31/24 12:00 91 H 14 155/61 H 08/31/24 11:54 36.2 C L 94 H 12 156/64 H 08/31/24 10:54 08/31/24 07:59 36.8 C 86 16 191/76 H 08/31/24 06:27 91 H 08/31/24 03:03 36.9 C 77 18 179/72 H 08/31/24 00:04 77 08/30/24 22:43 37 C 78 16 161/68 H 08/30/24 22:09 08/30/24 19:50 81 08/30/24 19:22 37.3 C 82 18 160/68 H 08/30/24 18:21 37.2 C 91 H 18 158/82 H 08/30/24 18:10 08/30/24 18:10 08/30/24 17:20 08/30/24 17:10 77 12 157/89 H 08/30/24 16:30 73 22 08/30/24 16:30 176/96 H 08/30/24 16:17 75 08/30/24 16:00 77 23 08/30/24 16:00 164/82 H 08/30/24 15:30 158/76 H 08/30/24 15:24 74 22 08/30/24 15:12 75 13 08/30/24 15:01 163/69 H 08/30/24 14:30 82 15 163/69 H 08/30/24 14:00 36.9 C 73 18 165/73 H 08/30/24 13:00 82 18 162/70 H Pulse Ox O2 Del Method O2 Flow Rate 08/31/24 12:30 93 Nasal Cannula 2 08/31/24 12:20 95 Nasal Cannula 2 08/31/24 12:10 97 Oxymask 4 08/31/24 12:00 98 Oxymask 6 08/31/24 11:54 99 Oxymask 8 08/31/24 10:54 Nasal Cannula 4 08/31/24 07:59 91 Nasal Cannula 4 08/31/24 06:27 08/31/24 03:03 94 Nasal Cannula 4 08/31/24 00:04 08/30/24 22:43 94 Nasal Cannula 4 08/30/24 22:09 Room Air 08/30/24 19:50 08/30/24 19:22 93 Nasal Cannula 4 08/30/24 18:21 95 Nasal Cannula 4 08/30/24 18:10 Nasal Cannula 4 08/30/24 18:10 Nasal Cannula 4 08/30/24 17:20 Nasal Cannula 4 08/30/24 17:10 93 Nasal Cannula 4 08/30/24 16:30 94 08/30/24 16:30 08/30/24 16:17 08/30/24 16:00 93 08/30/24 16:00 08/30/24 15:30 08/30/24 15:24 95 08/30/24 15:12 96 08/30/24 15:01 08/30/24 14:30 92 08/30/24 14:00 95 Nasal Cannula 4 08/30/24 13:00 94 Room Air 4 Pain Intensity Right Hip: Pain Intensity: 8 Transfer of Care Handoff Completed per policy Notes Mental Status: alert / awake / arousable Patient Amnestic to Procedure: Yes Nausea / Vomiting: adequately controlled Pain: adequately controlled Airway Patency, RR, SpO2: stable & adequate BP & HR: stable & adequate Hydration State: stable & adequate Anesthetic Complications: no major complications apparent
[2024-08-31] MEDS ORDERED: ARTIFICIAL TEARS OP PRN (12:40)
[2024-08-31] MEDS: TRANEXAMIC ACID / 0.7% NACL 1000MG/100ML BAG IV ONE (13:35)
--- NOTE | 2024-08-31 14:18 | XRay Report ---
Clinical History: Postoperative examination 2 views of the right hip are submitted for review. Findings: No fracture is seen. There is a right hip bipolar hemiarthroplasty in expected position. There is no definite sign of infection or loosening. No other osseous abnormality is identified. There are surgical skin veronika laterally Impression: Right hip replacement Electronically signed by Marco Reno 08-31-2024 2:17 PM
--- NOTE | 2024-08-31 15:56 | Billing Data ---
Date of Service August 31, 2024 Coding Level of Care Code 30475 SUB INP/OBS CARE
[2024-08-31] MEDS: ceFAZolin 2000MG 2,000 MG/15 ML SYR IV SCH (17:21)
[2024-08-31] MEDS: ASPIRIN 81 MG ECTAB PO SCH (20:20)
[2024-08-31] MEDS ORDERED: NON-FORMULARY MEDICATION (Glucos Sul 2kcl-Msm-Chond-C-Mn [Glucosamine Chondroitin] 550-30- PO SCH (21:00)
[2024-09-01 06:43] LABS: Basophils # (auto) 0.01 K/uL (0.00-0.20); Basophils % (auto) 0.1 %; Eosinophils # (auto) 0.01 K/uL (0.00-0.50); Eosinophils % (auto) 0.1 %; Hematocrit (blood only) 27.5 % (42.0-52.0); Hemoglobin 9.2 g/dl (14.0-18.0); Immature Granulocytes # (auto) 0.04 K/uL (0.01-0.20); Immature Granulocytes % (auto) 0.4 %; Mean Corpuscular Hemoglobin 32.6 pg (25.0-34.0); Mean Corpuscular Hgb Conc 33.5 g/dL (32.0-36.0); Mean Corpuscular Volume 97.5 fL (80.0-100.0); Mean Platelet Volume 10.1 fL (9.4-12.4); Monocytes # (auto) 0.71 K/uL (0.11-0.59); Monocytes % (auto) 7.6 %; Neutrophils # (auto) 7.02 K/uL (1.40-6.50); Neutrophils % (auto) 74.8 %; Platelet Count 79 K/uL (130-400); RDW Coefficient of Variation 13.2 % (11.5-14.5); RDW Standard Deviation 47.5 fL (36.4-46.3); Red Blood Count 2.82 M/uL (4.70-6.10); White Blood Count 9.39 K/ul (4.8-10.8)
[2024-09-01 07:03] LABS: BUN Creatinine Ratio 21.1 (10-20); Calcium 8.2 mg/dl (8.6-10.3); Creatinine Clr Calc Pharmacy 25.4 ml/min; Potassium 4.7 mmol/L (3.5-5.1)
--- NOTE | 2024-09-01 07:13 | Orthopedic Progress Note ---
Date of Service September 01, 2024 Assessment & Plan (1) Fracture of right hip: POD 1 from right hip hemiarthroplasty. Seems to be doing well. Not having pain. dvt prophylaxis: teds, scd's, aspirin PT/Ot wbat, hip precautions. Continue d/c planning seen and examined by Dr. Roverto Dobson . 88 year old patient POD 1 from right bipolar hemiarthroplasty for hip fx. Denies any pain. He's hoping to be able to go home. No other complaints. Review of Systems All systems reviewed & are unremarkable except as noted in HPI & below. Physical Exam .Alert, NAD. VSS Right leg: dressing clean, dry, intact. Able to dorsiflex and plantarflex. NVI. Good alignment to leg. Results & Data Results & Data Laboratory Results . Diagnostic Findings . PG Care Time/CCT Total # of Minutes Spent Total Time Spent with Patient: Total time spent is greater than 50% in coordination of care (as documented) at patient's floor/unit and/or counseling patient: Coding Level of Care Code 27314 Post Operative Follow-Up Diagnoses Fracture of right hip S72.001A Encounter type: initial encounter Fracture type: closed (1) Fracture of right hip Encounter type: initial encounter Fracture type: closed Qualified Code(s): S72.001A - Fracture of unspecified part of neck of right femur, initial encounter for closed fracture
[2024-09-01] MEDS: LACTATED RINGER'S 1,000 ML IV SCH (07:32)
[2024-09-01] MEDS: CHOLECALCIFEROL 25 MCG (1000 UNITS) TAB PO SCH (07:36)
--- NOTE | 2024-09-01 10:27 | Cardiology Progress Note ---
Date of Service September 01, 2024 Assessment & Plan (1) Acute hypoxic respiratory failure: (2) Elevated troponin: (3) Hypertension: (4) First degree atrioventricular block by electrocardiogram: Plan 1. Hypoxia: Based on measurements in his chart (as recently as June 09, 2024) this was a new finding on presentation. He could not be evaluated for pulmonary embolism due to his increased creatinine and risk of dye, however he did have a suggestion of pulmonary congestion on his CT scan and his BNP is somewhat elevated. His blood pressure was markedly elevated although his left ventricular function is normal and he does have left ventricular hypertrophy. Although a little bit hard to evaluate it is possible that his hypoxia was due to mild diastolic heart failure, possibly in the setting of underlying lung disease but that does not appear to have been evident several months ago. Today on room air it seems that his oxygen saturation was more than 90% based on his vital sign data. 2. Elevated troponin: This was mildly elevated with a trend more consistent with demand ischemia than myocardial infarction. I do not think we need to evaluate further at this time. 3. Hypertension: His blood pressure is significantly elevated and appears to have been in the past as well, it is probably worse now due to stress. This will probably need to be better controlled over the long run. 4. First-degree AV block: He has borderline first-degree AV block on electroca rdiography and this is also seen on telemetry. He has not had higher grade AV block. This could indicate conduction system disease, conceivably this could identify a cause of his fall other than a mechanical fall but based on his history and telemetry so far that does not seem to be the case. I would keep him on telemetry if possible while he is here in case he does have intermittent higher degree AV block but since there is no history of loss of consciousness I do not think long-term monitoring as an outpatient is necessary. Admission and Anticipated Discharge Date Admission Date: August 30, 2024 Subjective He is feeling pretty well, having some discomfort but no cardiovascular symptoms. Physical Exam Physical Exam: Constitutional: Alert, cooperative and in no distress. He is sitting at his bedside. He has a back brace. HEENT: Unremarkable Neck: No jugular venous distention, carotid pulses are normal and equal bilaterally without bruits. Pulmonary: Clear to auscultation bilaterally. Cardiac: Limited exam by his back brace. Abdomen: Soft, nontender with normal bowel sounds. Extremities: No edema. Neurologic: No focal findings. Skin: No rash, ecchymoses or petechiae. Results & Data Vital Signs (Past 12 Hours) Vital Signs Temp Pulse Pulse Resp BP BP Pulse Ox 09/01/24 07:30 09/01/24 07:30 37.1 C 76 18 160/69 H 91 09/01/24 07:00 79 09/01/24 02:50 37.1 C 79 16 155/63 H 97 08/31/24 23:12 36.9 C 78 16 137/68 95 08/31/24 22:28 O2 Del Method O2 Flow Rate 09/01/24 07:30 Room Air 09/01/24 07:30 Nasal Cannula 2 09/01/24 07:00 09/01/24 02:50 Nasal Cannula 1.5 08/31/24 23:12 Nasal Cannula 3 08/31/24 22:28 Nasal Cannula 3 Laboratory Results Cardiac Enzymes 08/31/24 09/01/24 Range/Units 18:30 06:04 Troponin I High Sens 93.7 H* 49.0 H D (0-20) pg/ml CBC 09/01/24 Range/Units 06:04 WBC 9.39 (4.8-10.8) K/ul RBC 2.82 L (4.70-6.10) M/uL Hgb 9.2 L (14.0-18.0) g/dl Hct 27.5 L (42.0-52.0) % Plt Count 79 L (130-400) K/uL Neut # (Auto) 7.02 H (1.40-6.50) K/uL Lymph # (Auto) 1.60 (1.20-3.40) K/uL Saunders # (Auto) 0.71 H (0.11-0.59) K/uL Eos # (Auto) 0.01 (0.00-0.50) K/uL Baso # (Auto) 0.01 (0.00-0.20) K/uL Comprehensive Metabolic Panel 09/01/24 Range/Units 06:04 Sodium 139 (136-145) mmol/L Potassium 4.7 (3.5-5.1) mmol/L Chloride 107 (98-107) mmol/L Carbon Dioxide 27 (21-32) mmol/L BUN 49 H (6-23) mg/dl Creatinine 2.32 H D (0.6-1.4) mg/dl Glucose 104 H (70-99(Fasting)) mg/dl Calcium 8.2 L (8.6-10.3) mg/dl Intake and Output 08/31/24 09/01/24 09/01/24 22:59 06:59 14:59 Intake Total 1000 / 1890 290 / 1890 100 / 100 Output Total 450 / 850 Balance 1000 / 1040 -160 / 1040 100 / 100 Intake: IV 1000 / 1100 100 / 100 Acetaminophen 1,000 mg In 100 100 / 100 ml @ 400 mls/hr IV Q8H PRN Rx#: [id number] Lactated Ringer's 1,000 ml @ 80 1000 / 1000 mls/hr IV .[id number] EDMOND Rx#: [id number] Oral 290 / 290 Output: Urine Amount (Catheter) 450 / 750 Driscoll/Indwelling 450 / 750 Other: Weight 91 kg Weight Measurement Method Built in [facility] Diagnostic Findings Telemetry: Sinus rhythm with first-degree AV block, no higher degree AV block. PG Care Time/CCT Total # of Minutes Spent Total Time Spent with Patient: Total time spent is greater than 50% in coordination of care (as documented) at patient's floor/unit and/or counseling patient: Coding Level of Care Code 59949 SUB INP/OBS CARE 2/35MIN Diagnoses Acute hypoxic respiratory failure J96.01 Elevated troponin R79.89 Hypertension I10 First degree atrioventricular block by electrocardiogram I44.0
--- NOTE | 2024-09-01 10:33 | XRay Report ---
XR chest 2V PA/lateral CLINICAL HISTORY: hypoxia COMPARISON STUDY: 08/30/2024 FINDINGS: Heart size and pulmonary vasculature are normal. No effusion, consolidation, or pneumothora x. IMPRESSION: No acute findings. ACT 112: Negative or not required by law. Electronically signed by: Cuauhtemoc Crabtree M.D. 09/01/2024 10:32 AM
--- NOTE | 2024-09-01 13:26 | Hospitalist Progress Note ---
Date of Service September 01, 2024 Assessment & Plan (1) Fracture of right hip: (2) Closed T12 fracture: (3) Fall: (4) Acute hypoxic respiratory failure: (5) First degree atrioventricular block by electrocardiogram: (6) Acute kidney injury: Plan Macho is an 88M w/ PMH of anemia, MR, hearing loss, reflux, osteoarthritis, HTN, hypercholesterolemia, and actinic keratosis who presented for a fall at home and was admitted for management of a hip fracture. Hypoxic respiratory failure, improving/resolving - No hx of CHF or home O2 need Asymptomatic - no CP, edema, claudication, or orthopnea Euvolemic to slightly dry on exam with OTILIA -No evidence of pneumonia. Chest x-ray clear - No calf pain or asymmetric edema to suggest DVT. No chest pain, dyspnea or tachycardia present to suggest PE - CT Chest w/o con with nondisplaced T12 vertebral body fracture. Mild interstitial pulmonary edema, few pulmonary nodules. Suspect atelectatic in the setting of a fall and pain. He is clinically improving with gentle fluids for OTILIA and has been weaned to room air. Continue to follow. No pleuritic pain. No tachycardia. No lower extremity swelling to suggest DVT/PE Mechanical Fall with T12 fracture and right hip fracture Fractures managed as noted below. No evidence of solid organ injury. No evidence of bleeding T12 Vertebral Fracture No head strike/LOC. CT Head w/o acute findings, though extensive small vessel disease - No blood thinner use. Hemoglobin stable, no evidence of bleeding - CT Abdomen and Pelvis 1. Acute displaced subcapital right femoral neck fracture. 2. Acute nondisplaced T12 vertebral body fracture which involves the anterior cortex and superior endplate. No retropulsion. No extension into the posterior elements. 3. No evidence for acute traumatic injury to the solid abdominal viscera on unenhanced exam. - TLSO brace recommended after hip surgery for T12 Vertebral Fracture. Orthotics consulted. Remains neurovascularly intact without extremity deficit and strength or sensation Continue multimodal pain control Tylenol, lidocaine patch, morphine as needed. Pain adequately controlled at time of bedside assessment Right hip fracture S/p right hip hemiarthroplasty Neurovascularly intact. Pain adequately controlled Continue aspirin twice daily for DVT prophylaxis per primary team Doing well, anticipate progression to either acute rehab versus home PT pending PT/OT evals OTILIA on CKD Baseline creatinine around 1.81.9, admitting creatinine 2.06. Uptrending on 3/lead Clinically appears volume contracted. Patient is improving with downtrending oxygen requirement with fluids Additional 1 L LR at 125 cc ordered, oral fluids encouraged Irbesartan/HCTZ remain held Trend BMP daily Chronic anemia Mild. No signs of acute bleeding on exam above Trend hemoglobin daily GERD Continue PPI Hyperlipidemia Continue statin DVT prophylaxis: SCDs. Aspirin 81 mg twice daily per primary team CODE STATUS: Full code Disposition: M/T Diet: Heart healthy Admission and Anticipated Discharge Date Admission Date: August 30, 2024 Subjective Clinically improving. Has been weaned to room air, maintaining normal oxygen saturations on room air although does desaturate easily with rest. Progressing. Appears volume depleted and has an OTILIA, suspect prerenal. Discussed goals for discharge are to resolve oxygen requirement, and have improvement in his renal function. No other questions at time of bedside. He reports that his pain is adequately controlled in the hip. Family is at bedside and updated on plan of care no additional questions at time of visit Physical Exam Physical Exam: General: A&Ox3. NAD. Cooperative. HEENT: Atraumatic, normocephalic. Vision/hearing intact Pulm: Slightly diminished but clear and without rales. Symmetrical chest rise. No increased work of breathing. No respiratory distress. Cardiac: RRR, -mrg. Radial pulses intact and symmetrical. Abdominal: Nontender, nondistended, soft. BS present. Ext: Ankle dorsi/plantar flexion 5/5. S/p right hip arthroplasty operative site C/D/I. Cap refill in feet is intact less than 2 seconds bilaterally. No edema. Results & Data Results & Data Vital Signs (Past 12 Hours) Vital Signs Temp Pulse Pulse Resp BP BP Pulse Ox 09/01/24 11:17 36.9 C 61 18 150/61 H 92 09/01/24 07:30 09/01/24 07:30 37.1 C 76 18 160/69 H 91 09/01/24 07:00 79 09/01/24 02:50 37.1 C 79 16 155/63 H 97 O2 Del Method O2 Flow Rate 09/01/24 11:17 Room Air 09/01/24 07:30 Room Air 09/01/24 07:30 Nasal Cannula 2 09/01/24 07:00 09/01/24 02:50 Nasal Cannula 1.5 PG Care Time/CCT Total # of Minutes Spent Total Time Spent with Patient: Total time spent is greater than 50% in coordination of care (as documented) at patient's floor/unit and/or counseling patient: Coding Level of Care Code 08001 SUB INP/OBS CARE 3/50MIN Diagnoses Fracture of right hip S72.001A Encounter type: initial encounter Fracture type: closed Closed T12 fracture S22.088A Encounter type: initial encounter Fracture morphology: other fracture Fall W19.XXXA Encounter type: initial encounter Acute hypoxic respiratory failure J96.01 First degree atrioventricular block by electrocardiogram I44.0 Acute kidney injury N17.9 (1) Fracture of right hip Encounter type: initial encounter Fracture type: closed Qualified Code(s): S72.001A - Fracture of unspecified part of neck of right femur, initial encounter for closed fracture (2) Closed T12 fracture Encounter type: initial encounter Fracture morphology: other fracture Qualified Code(s): S22.088A - Other fracture of T11-T12 vertebra, initial encounter for closed fracture (3) Fall Encounter type: initial encounter Qualified Code(s): W19.XXXA - Unspecified fall, initial encounter
--- NOTE | 2024-09-01 13:58 | Electrocardiogram Report ---
Test Reason : Blood Pressure : */* mmHG Vent. Rate : 100 BPM Atrial Rate : 100 BPM P-R Int : 280 ms QRS Dur : 110 ms QT Int : 340 ms P-R-T Axes : 50 -21 1 degrees QTcB Int : 438 ms Normal sinus rhythm with 1st degree A-V block Normal ECG When compared with ECG of 26-Sep-2016 18:42, Questionable change in QRS axis Confirmed by River Santiago [id number] on 09/01/2024 1:58:29 PM Referred By: Confirmed By: River Santiago
[2024-09-02 07:08] LABS: BUN Creatinine Ratio 24.7 (10-20); Calcium 8.3 mg/dl (8.6-10.3); Creatinine Clr Calc Pharmacy 29.8 ml/min; Potassium 4.2 mmol/L (3.5-5.1)
[2024-09-02 07:18] LABS: Basophils # (auto) 0.02 K/uL (0.00-0.20); Basophils % (auto) 0.3 %; Eosinophils # (auto) 0.49 K/uL (0.00-0.50); Eosinophils % (auto) 6.3 %; Hematocrit (blood only) 25.9 % (42.0-52.0); Hemoglobin 8.6 g/dl (14.0-18.0); Immature Granulocytes # (auto) 0.02 K/uL (0.01-0.20); Immature Granulocytes % (auto) 0.3 %; Lymphocytes # (auto) 2.55 K/uL (1.20-3.40); Lymphocytes % (auto) 32.8 %; Mean Corpuscular Hemoglobin 32.6 pg (25.0-34.0); Mean Corpuscular Hgb Conc 33.2 g/dL (32.0-36.0); Mean Corpuscular Volume 98.1 fL (80.0-100.0); Mean Platelet Volume 10.2 fL (9.4-12.4); Monocytes # (auto) 0.61 K/uL (0.11-0.59); Monocytes % (auto) 7.9 %; Neutrophils # (auto) 4.08 K/uL (1.40-6.50); Neutrophils % (auto) 52.4 %; Platelet Count 79 K/uL (130-400); RDW Coefficient of Variation 13.4 % (11.5-14.5); RDW Standard Deviation 48.1 fL (36.4-46.3); Red Blood Count 2.64 M/uL (4.70-6.10); White Blood Count 7.77 K/ul (4.8-10.8)
[2024-09-02] MEDS: LACTATED RINGER'S 500 ML IV SCH (09:20)
[2024-09-02 09:48] LABS: Ferritin 121.9 ng/ml (8-388)
[2024-09-02 10:12] LABS: Folate (Folic Acid),Ser orPlas 21.09 ng/ml (>5.38)
--- NOTE | 2024-09-02 10:56 | Ultrasound Report ---
BILATERAL LOWER EXTREMITY VENOUS DOPPLER CLINICAL HISTORY: Recent fall. Evaluate for deep venous thrombus. COMPARISON STUDY: No previous studies for comparison. TECHNIQUE: Sonography of the deep venous system of the bilateral lower extremities was performed. Co mpression and augmentation were evaluated. FINDINGS: The bilateral common femoral, superficial femoral and popliteal veins were compressible. A ugmentation was normal. Flow was shown within the deep calf vessels. IMPRESSION: No evidence of deep venous thrombus within the bilateral lower extremities. ACT 112: Negative or not required by law. Electronically signed by: Florentino Garrett M.D. 09/02/2024 10:54 AM
[2024-09-02] MEDS: IRON SUCROSE 300 MG in SODIUM CHLORIDE 0.9% 250 ML IV ONE (11:22)
[2024-09-02] MEDS: POLYETHYLENE (MIRALAX) 17 GM PACK PO SCH (11:31)
--- NOTE | 2024-09-02 12:23 | Discharge Summary ---
Discharge Summary Date of Service September 02, 2024 Principal Dx & Hospital Course #1 = Principal Diagnosis (1) Fracture of right hip: (2) Closed T12 fracture: (3) Fall: (4) Acute hypoxic respiratory failure: (5) First degree atrioventricular block by electrocardiogram: (6) Acute kidney injury: Dylan Pritchard is an 88M w/ PMH of anemia, MR, hearing loss, reflux, osteoarthritis, HTN, hypercholesterolemia, and actinic keratosis who presented for a fall at home and was admitted for management of a hip fracture. Fall was mechanical due to slipping. He was monitored for an OTILIA, and hypoxic respiratory failure. Respiratory failure improved with gentle fluids and creatinine was not normal but downtrending at time of discharge. Further observation for his kidney function normalization was discussed however patient strongly preferred for discharge to rehab. His hypoxia was felt to be likely due to a combination of volume depletion, and atelectasis. May have also had a contribution of mild anemia and was iron deficient during admission and received an infusion of Venofer prior to discharge. CT of the chest without contrast due to renal dysfunction did not show any skin abnormalities. Lower extremity Dopplers did not show evidence of DVT and he was not persistently tachycardic. He had no pleuritic pain, likelihood of PE was low. He was able to be weaned to room air prior to discharge. To do as outpatient: 1. Repeat BMP within 1 week to ensure continued improvement of OTILIA. Hold irbesartan until normalized. May use amlodipine 5 mg daily for blood pressure control, and temporarily increase to 10 mg if needed for blood pressures above goal. 2. Continue to use TLSO brace for T12 vertebral fracture. Neurovascularly intact and no intervention/surgery was recommended on orthospine consultation. 3. Continued rehab post right hip hemiarthroplasty 4. Chronic anemia. Repeat CBC within 1 week. Patient was iron deficient. Continue iron repletion as needed. Denied hematochezia/melena during admission. Colonoscopy 08/2021 with polyps negative for high-grade dysplasia, colon samples consistent with tubular adenomas 5. Continue aspirin twice daily for DVT prophylaxis. No evidence of bleeding during admission. Did have some chronic anemia likely due to iron deficiency Hypoxic respiratory failure, improving/resolving - No hx of CHF or home O2 need Asymptomatic - no CP, edema, claudication, or orthopnea Euvolemic to slightly dry on exam with OTILIA -No evidence of pneumonia. Chest x-ray clear - No calf pain or asymmetric edema to suggest DVT. No chest pain, dyspnea or ta chycardia present to suggest PE - CT Chest w/o con with nondisplaced T12 vertebral body fracture. Mild interstitial pulmonary edema, few pulmonary nodules. Suspect atelectatic in the setting of a fall and pain. He is clinically improving with gentle fluids for OTILIA and has been weaned to room air. Continue to follow. No pleuritic pain. No tachycardia. No lower extremity swelling to suggest DVT/PE Mechanical Fall with T12 fracture and right hip fracture Fractures managed as noted below. No evidence of solid organ injury. No evidence of bleeding T12 Vertebral Fracture No head strike/LOC. CT Head w/o acute findings, though extensive small vessel disease - No blood thinner use. Hemoglobin stable, no evidence of bleeding - CT Abdomen and Pelvis 1. Acute displaced subcapital right femoral neck fracture. 2. Acute nondisplaced T12 vertebral body fracture which involves the anterior cortex and superior endplate. No retropulsion. No extension into the posterior elements. 3. No evidence for acute traumatic injury to the solid abdominal viscera on unenhanced exam. - TLSO brace recommended after hip surgery for T12 Vertebral Fracture. Orthotics consulted. Remains neurovascularly intact without extremity deficit and strength or sensation Continue multimodal pain control Tylenol, lidocaine patch, morphine as needed. Pain adequately controlled at time of bedside assessment Right hip fracture S/p right hip hemiarthroplasty Neurovascularly intact. Pain adequately controlled Continue aspirin twice daily for DVT prophylaxis per primary team Doing well, anticipate progression to either acute rehab versus home PT pending PT/OT evals OTILIA on CKD Baseline creatinine around 1.81.9, admitting creatinine 2.06. Hydrochlorothiazide and irbesartan were held. Creatinine downtrending but not yet normalized at time of discharge. Patient clinically improved and his oxygenation improved with supplemental IV fluids total 2 L and encourage p.o. intake. For/benefits of ongoing observation given above normal creatinine were discussed patient strongly for discharge to rehab. Discussed with their staff and will have BMP checks as outpatient Chronic anemia Mild. No signs of acute bleeding on exam above Trend hemoglobin daily GERD Continue PPI Hyperlipidemia Continue statin DVT prophylaxis: SCDs. Aspirin 81 mg twice daily per primary team CODE STATUS: Full code Disposition: M/T Diet: Heart healthy Admission HPI Per Admitting Provider Macho is an 88-year-old male with a past medical history of reflux, hypertension, anemia, hearing loss who slipped around 12-14 hours prior hospitalist assessment and fell down approximately 10 stairs without head strike or loss of consciousness. He is not on any anticoagulants/blood thinners/antiplatelet agents. On ER evaluation he is found to have a right hip fracture. Macho is seen at the bedside. He reports that he got up in the middle of the night to go and get some pillows to help prevent/block his dog from going under the bed. On his way up the stairs carrying pillows he lost his footing and slipped and fell back down the stairs. Presented this morning with continued right hip and mid low back pain. He denies numbness/tingling of the extremities. No fever chills or sweats. He does not normally use oxygen but has been on 4 L since he arrived. He denies orthopnea and is laying flat comfortably. He denies lower extremity swelling recently. Reports he did have some scant lower extremity swelling in the past but this resolved with hydrochlorothiazide. He denies any history of heart attacks, heart failure, or Lasix use. He reports he normally goes up and down the stairs and is able to walk around independently with no limiting chest pain chest pressure or exertion. He has not been sick lately and denies fever chills sweats lightheadedness dizziness nausea vomiting and diarrhea. Medical History: Reviewed Medications: Reviewed Surgical History: Reviewed Family history: Reviewed Allergies: Reviewed Social History: Denies tobacco/alcohol/recreational drug Code Status: Full code Discharge Exam General: A&Ox3. NAD. Cooperative. HEENT: Atraumatic, normocephalic. Vision and hearing grossly Pulm: CTAB A&P. -wheezes, -rales, -rhonchi. Symmetrical chest rise. No increased work of breathing. No respiratory distress. Cardiac: RRR, -mrg. Radial pulses intact and symmetrical. Abdominal: Nontender, nondistended, soft. BS present. Extremities: Ankle dorsi/plantarflexion 5/5 with sensation intact. No edema. Surgical incision C/D/I Discharge Plan Discharge Items Patient Disposition: Transfer Inpatient Rehab Fac Reason For Visit: FALL, HIP FRACTURE Discharge Diagnosis: Right hip arthroplasty for fracture Activity: Per Instructions section Activity Comment: Follow/Obey hip precautions at all times. Weightbearing: Full weightbearing Weightbearing Comment: Weightbear as tolerated obeying hip precautions at all times. Non-emergency contact: Surgeon Call non-emergency contact if: you have any medication questions Follow-up/Referrals: Katarina Villarreal CRNP [Primary Care Provider] - Mahad Layne MD [Physician] - (Orthopedic follow-up 2-3 weeks from surgery date) Diet: Regular, Carb Count or DM1 and Carb Consistent or DM2 Addtl Attending Provider Instructions: ACTIVITY RECOMMENDATIONS: Diet: * You may resume previous diet. Physical Therapy: * Aggressive physical therapy is not usually needed. You will learn to take care of yourself safely and walk. * Follow the "Hip Precautions Instructions." * In some cases, the social worker aide at the hospital will arrange to have a therapist come to your house for the first couple of weeks to help you learn these skills. * You need to practice on your own or with the help of a family member as needed. * When you learn these skills, most of the therapy can be done on your own. Home Exercise: * You were shown a series of exercises in the hospital. Do these exercises three to four times each day including the exercises you were shown in physical therapy. Walking: * Get up and walk several times each day. For the first four weeks, try not to stand or walk for more than one hour at a time. If you do stand or walk for more than one hour, you will not hurt anything, but your leg will likely swell. * As you feel comfortable, you may change from the walker or crutches to a cane and then to independent walking. MEDICATIONS: New Medicine: * You will likely be taking one or more of these medicines: 1. Tramadol - Take, as directed, when you need it, every six hours to control your pain. 2. Aspirin - Thins your blood to lessen the chance of forming a blood clot. * The most common side effects of pain medicine and iron are nausea and constipation. If nausea or constipation is too much of a problem or if you have any questions about your new medicines or doses, call [facility] at . We will try to help you manage these issues. "VERY IMPORTANT TO READ AND REVIEW" Pain: * The immediate post-operative period after hip replacement surgery is often quite painful. * You are given a prescription for pain medicine. You should take it, as directed, when you need it, especially before physical therapy and before going to bed. Pain that interferes with sleep is very common and can last several months. * You will likely need pain medicine for the first two to four weeks. It will not stop all of the pain. The pain will lessen and as you feel better, you may change to milder pain medicine such as Tylenol. * The most common side effects of pain medicine are nausea and constipation, so don't take more than you need. SPECIAL CARE INSTRUCTIONS: TEDs/Elastic Stockings: * The white elastic stockings help limit swelling and prevent blood clots from forming in your legs. The more you wear them, the more they work. * Wear them for six weeks. Incision Site Care: * Remove dressing postoperative day 2 and then shower. Keep direct shower pressure off the incision site. * After showering, cover silvestre with dry gauze and change daily or more frequently if the dressing is getting saturated with drainage. * May completely stop using bandage if wound is dry and no drainage * Silvestre are removed between 2 and 3 weeks post-op. If your follow-up appointment is made before 2 weeks, please have your appointment re- scheduled. It is too early to remove the silvestre. Prevention of Infection: * Take antibiotics one hour before any dental cleaning, dental work, urological procedure, gastrointestinal procedure or any invasive surgery in order to prevent your new joint from getting infected. * You may get the antibiotics from the doctor performing the procedure or you may call our office at before and we will call in a prescription to the pharmacy of your choice. Things to Watch For: * Drainage from the incision site that occurs more than one week after your surgery. * Severely increased leg pain or swelling. * Increased redness at the incision site. * Fever above 102 degrees Fahrenheit. * Unusual chest pain or shortness of breath. * Unusual pain or burning with urination. Call [facility] at with any of the above problems or if you have any questions about your medicines or recovery. FOLLOW UP VISIT: Make an appointment to see your doctor for approximately two weeks after surgery for a progress check and staple removal by calling the office at . Addtl Windshield Technician Provider Instructions: Your blood levels were low during admission and you are noted to be iron deficient. You did not have any acute bleeding. Is recommended to continue an iron supplement daily and to have your blood levels rechecked in approximately 1 week as outpatient. You received an iron infusion prior to discharge. You had an acute kidney injury during admission. Your kidney function was starting to improve, but not normal at time of discharge. Continued observation and IV fluids for monitoring of your renal function was discussed, you strongly preferred discharged to rehab. Please continue to stay hydrated and your kidney level should be checked within 1 week. Your irbesartan and hydrochlorothiazide have been held. Do not restart these medications until your kidney function improves. You had an oxygen requirement during admission, this gradually improved with fluids and incentive spirometry. You did not show any evidence of blood clots in your legs on ultrasound. He did not have a persistently fast heart rate or other signs of PE. You were breathing normally with normal oxygen levels on room air at time of discharge If you develop any new or worsening symptoms including fever, chills, sweats, chest pain, chest pressure, difficulty breathing, uncontrolled nausea/vomiting, rash, wheezing, passing out or nearly passing out, bleeding, black/bloody bowel movements, or other new or concerning symptoms please call your primary care physician, or call 911 for re-evaluation in the emergency department if you are very concerned. Pending Studies at Discharge: No Stand-Alone Forms: My [employer], Smoking Cessation Skilled Items Patient informed of condition?: Yes Discharge Level of Care: Acute rehab Communicable Disease: No Discharge Prognosis: Stable Lines: None Urinary Catheter: No Medications and DC Order Prescriptions: New aspirin 81 mg Tablet,Delayed Release (Dr/Ec) 81 mg PO BID 30 Days Qty: 60 0RF iron polysac-iron heme polypep 28 mg tablet 1 tab PO DAILY Qty: 30 0RF Continued simvastatin 40 mg tablet 40 mg PO QPM Qty: 90 3RF pantoprazole 40 mg tablet,delayed release (DR/EC) 40 mg PO QAM Qty: 90 3RF amlodipine 5 mg tablet 5 mg PO QAM Qty: 90 3RF cholecalciferol (vitamin D3) 2,000 unit tablet 2,000 units PO QAM Rx Instructions: otc unable to verify multivitamin [Multiple Vitamins] Tablet 1 tab PO QAM Rx Instructions: otc unable to verify acetaminophen [Tylenol Arthritis Pain] 650 mg tablet extended release 1,300 mg PO Q8H PRN (Reason: pain) Patient Comments: Take as directed per package instructions Rx Instructions: otc unable to verify PreserVision AREDS-2 250-90-40-1 mg Capsule 1 tab PO BID Rx Instructions: otc unable to verify Glucosamine Chondroitin 550-30-1 mg Capsule 1 cap PO BID Rx Instructions: otc unable to verify Systane (PF) 0.4-0.3 % Dropperette 1 drp OPHTHALMIC (EYE) BID PRN (Reason: Dry Eyes) Rx Instructions: otc unable to verify Held hydrochlorothiazide 12.5 mg capsule 12.5 mg PO DAILY Qty: 90 3RF Hold Instructions: Resume on 09/29/24. irbesartan 300 mg tablet 300 mg PO QAM Qty: 90 3RF Hold Instructions: Resume on 09/29/24. Discharge Orders: Discharge Order (Routine); Ordered 09/02/24 Ordered By: Meng Haynes Admission Data Admit Date/Time: 08/30/24 15:21 Attending Provider: Meng Haynes Admit Provider: Meng Haynes Primary Care Provider: Katarina Villarreal Other Providers: Meng Haynes; Mahad Layne; Prateek Sumner; Nils Mehta; Lucio Flores; Mahad Benjamin; River Santiago; Altaf Magallon Jr; Gerry Bean; Nava Miller; Anne Leroy; Shane Verde; Shane Hagan; Sanya Andino; Hoda Norris; Jason Teran; Arlyn Aviles; Jason Lynn; Vitaliy Long; Ulises Diaz; [facility] Hospital Stay Data Consultations 08/30/24 12:22 Consult Orthopedic Surgery Routine ED Decision to Admit Stat 08/30/24 19:47 Consult Cardiology Stat Procedures Performed Operation Date: 08/31/24 09:00 Actual Procedures p Bipolar right hip arthroplasty cemented.(Right) - Mahad Layne MD Diagnostic Imagining Performed 08/30/24 10:46 CT abd pelvis wo con Stat CT cervical spine wo con Stat CT chest diagnostic wo con Stat CT head/brain wo con Stat 09/02/24 09:05 US venous doppler LE BI Stat Discharge Instructions Given to Patient (Per Discharging Provider) ACTIVITY RECOMMENDATIONS: Diet: * You may resume previous diet. Physical Therapy: * Aggressive physical therapy is not usually needed. You will learn to take care of yourself safely and walk. * Follow the "Hip Precautions Instructions." * In some cases, the social worker aide at the hospital will arrange to have a therapist come to your house for the first couple of weeks to help you learn these skills. * You need to practice on your own or with the help of a family member as needed. * When you learn these skills, most of the therapy can be done on your own. Home Exercise: * You were shown a series of exercises in the hospital. Do these exercises three to four times each day including the exercises you were shown in physical therapy. Walking: * Get up and walk several times each day. For the first four weeks, try not to stand or walk for more than one hour at a time. If you do stand or walk for more than one hour, you will not hurt anything, but your leg will likely swell. * As you feel comfortable, you may change from the walker or crutches to a cane and then to independent walking. MEDICATIONS: New Medicine: * You will likely be taking one or more of these medicines: 1. Tramadol - Take, as directed, when you need it, every six hours to control your pain. 2. Aspirin - Thins your blood to lessen the chance of forming a blood clot. * The most common side effects of pain medicine and iron are nausea and constipation. If nausea or constipation is too much of a problem or if you have any questions about your new medicines or doses, call [facility] at . We will try to help you manage these issues. "VERY IMPORTANT TO READ AND REVIEW" Pain: * The immediate post-operative period after hip replacement surgery is often quite painful. * You are given a prescription for pain medicine. You should take it, as directed, when you need it, especially before physical therapy and before going to bed. Pain that interferes with sleep is very common and can last several months. * You will likely need pain medicine for the first two to four weeks. It will not stop all of the pain. The pain will lessen and as you feel better, you may change to milder pain medicine such as Tylenol. * The most common side effects of pain medicine are nausea and constipation, so don't take more than you need. SPECIAL CARE INSTRUCTIONS: TEDs/Elastic Stockings: * The white elastic stockings help limit swelling and prevent blood clots from forming in your legs. The more you wear them, the more they work. * Wear them for six weeks. Incision Site Care: * Remove dressing postoperative day 2 and then shower. Keep direct shower pressure off the incision site. * After showering, cover silvestre with dry gauze and change daily or more frequently if the dressing is getting saturated with drainage. * May completely stop using bandage if wound is dry and no drainage * [place] are removed between 2 and 3 weeks post-op. If your follow-up appointment is made before 2 weeks, please have your appointment re- scheduled. It is too early to remove the silvestre. Prevention of Infection: * Take antibiotics one hour before any dental cleaning, dental work, urological procedure, gastrointestinal procedure or any invasive surgery in order to prevent your new joint from getting infected. * You may get the antibiotics from the doctor performing the procedure or you may call our office at before and we will call in a prescription to the pharmacy of your choice. Things to Watch For: * Drainage from the incision site that occurs more than one week after your surgery. * Severely increased leg pain or swelling. * Increased redness at the incision site. * Fever above 102 degrees Fahrenheit. * Unusual chest pain or shortness of breath. * Unusual pain or burning with urination. Call [facility] at with any of the above problems or if you have any questions about your medicines or recovery. FOLLOW UP VISIT: Make an appointment to see your doctor for approximately two weeks after surgery for a progress check and staple removal by calling the office at . Coding Diagnoses Fracture of right hip S72.001A Encounter type: initial encounter Fracture type: closed Closed T12 fracture S22.088A Encounter type: initial encounter Fracture morphology: other fracture Fall [id number].XXXA Encounter type: initial encounter Acute hypoxic respiratory failure J96.01 First degree atrioventricular block by electrocardiogram I44.0 Acute kidney injury N17.9
[2024-09-02] MEDS: traMADol HCL 50 MG TABLET PO PRN (13:05)
--- NOTE | 2024-09-02 13:41 | Hospitalist Progress Note ---
Date of Service September 02, 2024 Assessment & Plan (1) Fracture of right hip: Plan: Macho is an 88M w/ PMH of anemia, MR, hearing loss, reflux, osteoarthritis, HTN, hypercholesterolemia, and actinic keratosis who presented for a fall at home and was admitted for management of a hip fracture. Hypoxic respiratory failure, improving/resolving Suspect combination of splinting, atelectasis, hypoventilation Has improved with hydration, lungs are clear no evidence of COPD/wheezing/CHF No prior history of CHF or home oxygen needs Weaned to room air 09/23 Initially evaluated for potential PE however this is unlikely as Dopplers were negative, no persistent tachycardia, has been weaned to room air, and has no pleuritic pain Mechanical Fall with T12 fracture and right hip fracture Fractures managed as noted below. No evidence of solid organ injury. No evidence of bleeding T12 Vertebral Fracture No head strike/LOC. CT Head w/o acute findings, though extensive small vessel disease - No blood thinner use. Hemoglobin stable, no evidence of bleeding - CT Abdomen and Pelvis: 1. Acute displaced subcapital right femoral neck fracture. 2. Acute nondisplaced T12 vertebral body fracture which involves the anterior cortex and superior endplate. No retropulsion. No extension into the posterior elements. 3. No evidence for acute traumatic injury to the solid abdominal viscera on unenhanced exam. Continue TLSO brace. Remains neurovascularly intact without focal strength/sensory deficits Continue multimodal pain control Tramadol added as morphine alternative Patient is with focal pain overlying his T12 vertebrae slightly worsened after working with physical therapy, remains without neurovascular deficits Right hip fracture S/p right hip hemiarthroplasty Neurovascularly intact. Pain adequately controlled Continue aspirin twice daily for DVT prophylaxis per primary team Doing well, anticipate progression to rehab at [facility] likely 3/5 OTILIA on CKD Baseline creatinine around 1.81.9, admitting creatinine 2.06. Uptrending on 3 Clinically appears volume contracted. Patient is improving with downtrending oxygen requirement with fluids Has done well with supplemental fluids p.o. intake is now improving. Creatinine is just starting to downtrend Discharge versus continued observation was offered 09/02, due to increased pain patient is not comfortable with discharge /. Reasonable to watch to ensure renal function improves. Will also allow monitoring of blood counts further and is receiving a Venofer infusion as otherwise documented Continue to hold irbesartan and hydrochlorothiazide. Resume once renal function normalizes Chronic anemia Mild. No signs of acute bleeding on exam above Labs consistent with iron deficiency anemia. Transferrin saturation is very low. Ferritin is normal but likely artificially elevated as a phase reactant following surgery. Venofer infusion x 1 given 09/02/2024 Continue iron supplementation as outpatient Patient has had recent colonoscopies last 2021 with pathology of biopsy showing tubular adenomas, no high-grade dysplasia or malignancy GERD Continue PPI Hyperlipidemia Continue statin DVT prophylaxis: SCDs. Aspirin 81 mg twice daily per primary team CODE STATUS: Full code Disposition: M/T Diet: Heart healthy (2) Closed T12 fracture: (3) Fall: (4) Acute hypoxic respiratory failure: (5) First degree atrioventricular block by electrocardiogram: (6) Acute kidney injury: Admission and Anticipated Discharge Date Admission Date: August 30, 2024 Bronson Pritchard was seen at the bedside for evaluation. At time of morning evaluation was leaning towards discharge [facility] which was reasonable but with some concer n given recent downtrend in creatinine and still on oxygen. Subsequently was able to be weaned off of oxygen entirely however on ambulating with his TLSO brace did have greatly increased pain and discomfort and wished for observation for an additional day. This is reasonable given he is getting Venofer infusions, and will allow for an additional hemoglobin trend and to ensure that his creatinine does continue to improve. He denies fever chills or sweats. Did have some shaking with his pain but did not feel like these were shaking chills. Denies dysuria. Denies cough, no chest pain or chest pressure. Physical Exam Physical Exam: General: A&Ox3. NAD. Cooperative. HEENT: Atraumatic, normocephalic. Vision and hearing grossly intact Pulm: CTAB A&P. -wheezes, -rales, -rhonchi. Symmetrical chest rise. No increase in work of breathing. No respiratory distress. Cardiac: RRR, -mrg. Radial pulses intact and symmetrical. Abdominal: Nontender, nondistended, soft. BS present. Extremities: Ankle dorsiflexion/plantarflexion 5/5 bilaterally, sensation of soft touch intact in feet bilaterally, softball player strength elbow flexion 5/5 bilaterally, sensation to soft touch in hands intact bilaterally. On afternoon reassessment does have some focal tenderness overlying T12 vertebrae after moving with PT, slightly increased muscle tone. Results & Data Results & Data Vital Signs (Past 12 Hours) Vital Signs Temp Pulse Pulse Resp BP Pulse Ox Pulse Ox 09/02/24 11:33 36.6 C 79 20 158/68 H 94 09/02/24 11:30 99 09/02/24 08:00 90 09/02/24 08:00 09/02/24 08:00 36.6 C 97 H 20 170/68 H 94 09/02/24 03:12 37.1 C 99 H 18 171/70 H 93 O2 Del Method O2 Flow Rate O2 Flow Rate 09/02/24 11:33 Room Air 09/02/24 11:30 2 09/02/24 08:00 09/02/24 08:00 Nasal Cannula 2 09/02/24 08:00 Nasal Cannula 2 09/02/24 03:12 Nasal Cannula 2 PG Care Time/CCT Total # of Minutes Spent Total Time Spent with Patient: Total time spent is greater than 50% in coordination of care (as documented) at patient's floor/unit and/or counseling patient: Coding Level of Care Code 82399 SUB INP/OBS CARE 3/50MIN Diagnoses Fracture of right hip S72.001A Encounter type: initial encounter Fracture type: closed Closed T12 fracture S22.088A Encounter type: initial encounter Fracture morphology: other fracture Fall W19.XXXA Encounter type: initial encounter Acute hypoxic respiratory failure J96.01 First degree atrioventricular block by electrocardiogram I44.0 Acute kidney injury N17.9 (1) Fracture of right hip Encounter type: initial encounter Fracture type: closed Qualified Code(s): S72.001A - Fracture of unspecified part of neck of right femur, initial en counter for closed fracture (2) Closed T12 fracture Encounter type: initial encounter Fracture morphology: other fracture Qualified Code(s): S22.088A - Other fracture of T11-T12 vertebra, initial encounter for closed fracture (3) Fall Encounter type: initial encounter Qualified Code(s): W19.XXXA - Unspecified fall, initial encounter
--- NOTE | 2024-09-02 21:50 | Orthopedic Progress Note ---
Date of Service September 02, 2024 Assessment & Plan (1) Fracture of right hip: Plan: 88-year-old gentleman postop day 2 from a cemented bipolar hip arthroplasty for hip fracture. He also has a T12 compression fracture. Orthopedically is doing well. Little bit slightly confused today but will likely resolve with time. His pain seems to be controlled. Hips located. He is neurologically intact. Plan: 1. DVT prophylaxis including thigh-high teds, SCDs, aspirin twice a day. 2. PT/OT. Weight-bear as tolerated. Right total hip protocol. 3. Pain control. Doing well with current pain regimen. 4. Disposition. He is orthopedically stable for discharge anytime medically stable. I need to see him back 2 to 3 weeks out from surgery date. Any orthopedic questions can be directly [phone]. (2) Closed T12 fracture: Admission and Anticipated Discharge Date Admission Date: August 30, 2024 Subjective 88-year-old gentleman postop day 2 status post a right cemented bipolar hip arthroplasty for fracture. He is doing pretty well. Does not report much in the way of pain. Seems little bit confused today. Denies any chest pain or shortness of breath. No other complaints. Physical Exam Physical Exam: Physical examination is a pleasant elderly male. He is sitting up in his bedside chair looks comfortable. Seemed a little bit confused. Examination of the hip reveals dressing clean dry and intact. Leg lengths are equal. He can dorsiflex and plantarflex his foot appropriately. He is neurologically intact. Results & Data Vital Signs (Past 12 Hours) Vital Signs Temp Pulse Pulse Resp BP BP Pulse Ox 09/02/24 20:29 36.8 C 85 20 168/65 H 93 09/02/24 15:10 36.7 C 88 20 183/69 H 93 09/02/24 15:03 94 H 09/02/24 11:33 36.6 C 79 20 158/68 H 94 09/02/24 11:30 Pulse Ox O2 Del Method O2 Flow Rate O2 Flow Rate 09/02/24 20:29 Nasal Cannula 2 09/02/24 15:10 Room Air 09/02/24 15:03 09/02/24 11:33 Room Air 09/02/24 11:30 99 2 Laboratory Results Hemoglobin is 8.6 hematocrit is 25.9. Electrolytes are stable. Creatinine is pretty much back to baseline (1) Fracture of right hip Encounter type: initial encounter Fracture type: closed Qualified Code(s): S72.001A - Fracture of unspecified part of neck of right femur, initial encounter for closed fracture (2) Closed T12 fracture Encounter type: initial encounter Fracture morphology: other fracture Qualified Code(s): S22.088A - Other fracture of T11-T12 vertebra, initial encounter for closed fracture
[2024-09-03 07:50] VITALS: PULSE 81
[2024-09-03 08:46] LABS: Basophils # (auto) 0.02 K/uL (0.00-0.20); Basophils % (auto) 0.3 %; Eosinophils # (auto) 0.28 K/uL (0.00-0.50); Eosinophils % (auto) 4.5 %; Hemoglobin 7.6 g/dl (14.0-18.0); Immature Granulocytes # (auto) 0.03 K/uL (0.01-0.20); Immature Granulocytes % (auto) 0.5 %; Lymphocytes # (auto) 1.55 K/uL (1.20-3.40); Lymphocytes % (auto) 25.1 %; Mean Corpuscular Hemoglobin 32.3 pg (25.0-34.0); Mean Corpuscular Volume 97.9 fL (80.0-100.0); Mean Platelet Volume 9.7 fL (9.4-12.4); Monocytes % (auto) 11.3 %; Neutrophils % (auto) 58.3 %; Platelet Count 81 K/uL (130-400); RDW Coefficient of Variation 13.2 % (11.5-14.5); RDW Standard Deviation 47.5 fL (36.4-46.3); Red Blood Count 2.35 M/uL (4.70-6.10); White Blood Count 6.18 K/ul (4.8-10.8)
[2024-09-03 09:12] LABS: BUN Creatinine Ratio 24.8 (10-20); Calcium 8.1 mg/dl (8.6-10.3); Potassium 4.5 mmol/L (3.5-5.1)
[2024-09-03 09:20] LABS: Polychromasia 1+
[2024-09-03 10:15] LABS: Hematocrit (blood only) 23.3 % (42.0-52.0); Hemoglobin 7.7 g/dl (14.0-18.0)
--- NOTE | 2024-09-03 11:47 | Orthopedic Progress Note ---
Date of Service September 03, 2024 Assessment & Plan (1) Fracture of right hip: (2) Closed T12 fracture: (3) Status post hip surgery: (4) Status post hemiarthroplasty of right hip: (5) Aftercare following hip joint replacement surgery: Plan 88-year-old male POD# 3 s/p right hip bipolar hemiarthroplasty done for displaced femoral neck fracture. Also has T12 compression fracture that he has been wearing a TLSO brace for during ambulation. Plan: 1. DVT prophylaxis w/ SCDs, thigh-high SHAYLEE hose, and ASA 81 mg BID. 2. Con't PT/OT as tolerated. WBAT on RLE. TLSO brace on during ambulation. 3. Pain well-controlled continue current regimen. 4. Medical management as per the primary medicine service. 5. Dressing may be changed today; while inpatient, he should have the operative sites covered with a dressing, but when discharged, surgical wound can be left open to air. Plan for staple removal at initial postop check in the orthopedic clinic. 6. Disposition -orthopedically stable for discharge; plan is for him to be discharged per the hospitalist service to [facility] later today. 7. Follow-up outpatient with Dr. Layne's team 2 to 3 weeks postop. Subjective Patient is POD# 3 s/p right hip bipolar hemiarthroplasty Dr. Layne on 08/31/2024. Patient says his pain is well-controlled this morning. Denies CP, SOB, N/V, R LE paresthesia. He says that he is really not having much pain relative to his T12 compression fracture. He is compliant with wear of the TLSO brace during ambulation. Patient says that they are planning to get him to [facility] later today. Review of Systems All systems reviewed & are unremarkable except as noted in HPI & below. Physical Exam GENERAL: AA&Ox3, NAD. Pleasant, affect is calm. Lying in bed and appears comfortable. RESPIRATORY: Normal respiratory effort with no signs of distress. CHEST/AXILLA: Chest movement symmetrical. No deformities noted. CARDIOVASCULAR: No edema noted. SKIN: [place], warm and dry. MS/EXTREMITY: Hip dressing c/d/i. SHAYLEE hose donned. Thigh is soft, supple. Leg lengths are equal. + ankle dorsi/plantarflexion. NVI distally. Calf soft/NT. PT/DP pulses intact, 2+. Results & Data Results & Data Laboratory Results . Laboratory Results - last 24 hr 09/03/24 09/03/24 07:35 09:54 WBC 6.18 RBC 2.35 L Hgb 7.6 L 7.7 L Hct 23.0 L 23.3 L MCV 97.9 MCH 32.3 MCHC 33.0 RDW Std Deviation 47.5 H RDW Coeff of Fer 13.2 Plt Count 81 L MPV 9.7 Immature Gran % (Auto) 0.5 Neut % (Auto) 58.3 Lymph % (Auto) 25.1 [place] % (Auto) 11.3 Eos % (Auto) 4.5 Baso % (Auto) 0.3 Neut # (Auto) 3.60 Lymph # (Auto) 1.55 [place] # (Auto) 0.70 H Eos # (Auto) 0.28 Baso # (Auto) 0.02 Immature Gran # (Auto) 0.03 Polychromasia 1+ Sodium 139 Potassium 4.5 Chloride 109 H Carbon Dioxide 28 Anion Gap 2 L BUN 40 H Creatinine 1.61 H D Est Cr Clr Drug Dosing 37.0 eGFR 41.13 BUN/Creatinine Ratio 24.8 H Glucose 93 Calcium 8.1 L Diagnostic Findings . Venous Doppler Study 09/02/24 09:05 BILATERAL LOWER EXTREMITY VENOUS DOPPLER CLINICAL HISTORY: Recent fall. Evaluate for deep venous thrombus. COMPARISON STUDY: No previous studies for comparison. TECHNIQUE: Sonography of the deep venous system of the bilateral lower extremities was performed. Compression and augmentation were evaluated. FINDINGS: The bilateral common femoral, superficial femoral and popliteal veins were compressible. Augmentation was normal. Flow was shown within the deep calf vessels. IMPRESSION: No evidence of deep venous thrombus within the bilateral lower extremities. ACT 112: Negative or not required by law. Electronically signed by: Florentino Garrett M.D. 09/02/2024 10:54 AM PG Care Time/CCT Total # of Minutes Spent Total Time Spent with Patient: Total time spent is greater than 50% in coordination of care (as documented) at patient's floor/unit and/or counseling patient: Coding [place] [address] SUB INP/OBS CARE 2/35MIN Patient Type Established History Expanded Problem Focused Exam Expanded Problem Focused Medical Decision Making Low Complexity Diagnoses Fracture of right hip S72.001A Encounter type: initial encounter Fracture type: closed Closed T12 fracture S22.088A Encounter type: initial encounter Fracture morphology: other fracture Status post hip surgery Z98.890 Status post hemiarthroplasty of right hip Z96.641 Aftercare following hip joint replacement surgery Z47.1; Z96.649 (1) Fracture of right hip Encounter type: initial encounter Fracture type: closed Qualified Code(s): S72.001A - Fracture of unspecified part of neck of right femur, initial encounter for closed fracture (2) Closed T12 fracture Encounter type: initial encounter Fracture morphology: other fracture Qualified Code(s): S22.088A - Other fracture of T11-T12 vertebra, initial encounter for closed fracture
[2024-09-03 12:13] VITALS: RESP 15; TEMP 98.1; O2SAT 94
[2024-09-03 12:22] VITALS: BP 160/68
--- NOTE | 2024-09-03 16:03 | Electrocardiogram Report ---
Test Reason : Blood Pressure : */* mmHG Vent. Rate : 80 BPM Atrial Rate : 80 BPM P-R Int : 302 ms QRS Dur : 112 ms QT Int : 374 ms P-R-T Axes : 40 -9 -56 degrees QTcB Int : 431 ms Poor data quality, interpretation may be adversely affected Sinus rhythm with 1st degree A-V block Possible Anterior infarct , age undetermined Abnormal ECG When compared with ECG of 30-Aug-2024 10:44, (unconfirmed) No significant change Confirmed by River Santiago ([id number]) on 09/03/2024 4:03:51 PM Referred By: REFERRED SELF Confirmed By: River Santiago
--- NOTE | 2024-09-03 16:32 | Discharge Summary ---
Discharge Summary Date of Service September 03, 2024 Principal Dx & Hospital Course #1 = Principal Diagnosis (1) Fracture of right hip: Macho is an 88M w/ PMH of anemia, MR, hearing loss, reflux, osteoarthritis, HTN, hypercholesterolemia, and actinic keratosis who presented for a fall at home and was admitted for management of a hip fracture. Hypoxic respiratory failure, improving/resolving - has been on room air last 2 days but was on O2 overnight Suspect combination of splinting, atelectasis, hypoventilation Has improved with hydration, lungs are clear no evidence of COPD/wheezing/CHF - LE duplex negative no sx to suggest PE, unlikely Mechanical Fall with T12 fracture and right hip fracture Fractures managed as noted below. No evidence of solid organ injury. No evidence of bleeding T12 Vertebral Fracture No head strike/LOC. CT Head w/o acute findings, though extensive small vessel disease - No blood thinner use. Hemoglobin stable, no evidence of bleeding - CT Abdomen and Pelvis: 1. Acute displaced subcapital right femoral neck frac ture. 2. Acute nondisplaced T12 vertebral body fracture which involves the anterior cortex and superior endplate. No retropulsion. No extension into the posterior elements. 3. No evidence for acute traumatic injury to the solid abdominal viscera on unenhanced exam. Continue TLSO brace for comfort. WBAT. Continue multimodal pain control Tramadol added as morphine alternative Right hip fracture S/p right hip hemiarthroplasty 08/31 Dr Layne Continue aspirin twice daily for DVT prophylaxis x 6 weeks - cont PT/OT WBAT [facility] up with ortho 2-3 weeks OTILIA on CKD 3 Baseline creatinine around 1.81.9, admitting creatinine 2.06, peaked at 2.3 then returned to baseline with gentle IV fluids. 1.61 today Continue to hold irbesartan and hydrochlorothiazide for about a week, recheck BMP in about a week. Resume once renal function normalizes Chronic anemia Mild. No signs of acute bleeding on exam above Labs consistent with iron deficiency anemia. Transferrin saturation is very low. Ferritin is normal but likely artificially elevated as a phase reactant following surgery. Venofer infusion x 1 given 09/02/2024 Continue iron supplementation as outpatient Patient has had recent colonoscopies last 2021 with pathology of biopsy showing tubular adenomas, no high-grade dysplasia or malignancy - Hg decreased from 8.6-->7.6 this am without e/o bleeding, suspect dilution as IV fluids were given, repeat check midday stable at 7.7 Thrombocytopenia - new, consumptive - recheck CBC in a week GERD Continue PPI Hyperlipidemia Continue statin (2) Closed T12 fracture: (3) Fall: (4) Acute hypoxic respiratory failure: (5) First degree atrioventricular block by electrocardiogram: (6) Acute kidney injury: Notes For Next Care Provider irbesartan and hydrochlorothiazide currently held for OTILIA, resolved to baseline creatinine of 1.6 today recommend repeat CBC and BMP in about a week Medication Changes From Visit as above tramadol added for pain Discharge Exam PHYSICAL EXAMINATION Last 24h vital signs reviewed, see documentation in flowsheet General: comfortable appearing, no distress, reclining in bed HEENT: Normocephalic, atraumatic, pupils round and equal, sclerae anicteric, no conjunctival injection, moist mucus membranes Lungs: Normal respiratory effort. Clear to auscultation bilaterally. No RRW Heart: Regular rate and rhythm, no murmurs. No JVD Abdomen: Soft, nontender, nondistended. Bowel sounds present. Extremities: Warm, dry, well-perfused. 1+ lower extremity edema. right hip dressed in surgical dressing completely covered by compression bandage, right lo wer extremity warm and well-perfused 2+ DP pulse. Neuro: Alert and oriented x 4, face symmetric, moves 4 extremities well Psych: Normal affect and behavior Discharge Plan Discharge Items Patient Disposition: Transfer Inpatient Rehab Fac Reason For Visit: FALL, HIP FRACTURE Discharge Diagnosis: Right hip arthroplasty for fracture Activity: Per Instructions section Activity Comment: Follow/Obey hip precautions at all times. Weightbearing: Full weightbearing Weightbearing Comment: Weightbear as tolerated obeying hip precautions at all times. Non-emergency contact: Surgeon Call non-emergency contact if: you have any medication questions Follow-up/Referrals: Katarina Villarreal CRNP [Primary Care Provider] - Mahad Layne MD [Physician] - (Orthopedic follow-up 2-3 weeks from surgery date) Diet: Carb Consistent or DM2 Addtl Attending Provider Instructions: ACTIVITY RECOMMENDATIONS: Diet: * You may resume previous diet. Physical Therapy: * Aggressive physical therapy is not usually needed. You will learn to take care of yourself safely and walk. * Follow the "Hip Precautions Instructions." * In some cases, the social science professor at the hospital will arrange to have a therapist come to your house for the first couple of weeks to help you learn these skills. * You need to practice on your own or with the help of a family member as needed. * When you learn these skills, most of the therapy can be done on your own. Home Exercise: * You were shown a series of exercises in the hospital. Do these exercises three to four times each day including the exercises you were shown in physical therapy. Walking: * Get up and walk several times each day. For the first four weeks, try not to stand or walk for more than one hour at a time. If you do stand or walk for more than one hour, you will not hurt anything, but your leg will likely swell. * As you feel comfortable, you may change from the walker or crutches to a cane and then to independent walking. MEDICATIONS: New Medicine: * You will likely be taking one or more of these medicines: 1. Tramadol - Take, as directed, when you need it, every six hours to control your pain. 2. Aspirin - Thins your blood to lessen the chance of forming a blood clot. * The most common side effects of pain medicine and iron are nausea and constipation. If nausea or constipation is too much of a problem or if you have any questions about your new medicines or doses, call [facility] at . We will try to help you manage these issues. "VERY IMPORTANT TO READ AND REVIEW" Pain: * The immediate post-operative period after hip replacement surgery is often quite painful. * You are given a prescription for pain medicine. You should take it, as directed, when you need it, especially before physical therapy and before going to bed. Pain that interferes with sleep is very common and can last several months. * You will likely need pain medicine for the first two to four weeks. It will not stop all of the pain. The pain will lessen and as you feel better, you may change to milder pain medicine such as Tylenol. * The most common side effects of pain medicine are nausea and constipation, so don't take more than you need. SPECIAL CARE INSTRUCTIONS: TEDs/Elastic Stockings: * The white elastic stockings help limit swelling and prevent blood clots from forming in your legs. The more you wear them, the more they work. * Wear them for six weeks. Incision Site Care: * Remove dressing postoperative day 2 and then shower. Keep direct shower pressure off the incision site. * After showering, cover silvestre with dry gauze and change daily or more frequently if the dressing is getting saturated with drainage. * May completely stop using bandage if wound is dry and no drainage * Retsof are removed between 2 and 3 weeks post-op. If your follow-up appointment is made before 2 weeks, please have your appointment re- scheduled. It is too early to remove the silvestre. Prevention of Infection: * Take antibiotics one hour before any dental cleaning, dental work, urological procedure, gastrointestinal procedure or any invasive surgery in order to prevent your new joint from getting infected. * You may get the antibiotics from the doctor performing the procedure or you may call our office at before and we will call in a prescription to the pharmacy of your choice. Things to Watch For: * Drainage from the incision site that occurs more than one week after your surgery. * Severely increased leg pain or swelling. * Increased redness at the incision site. * Fever above 102 degrees Fahrenheit. * Unusual chest pain or shortness of breath. * Unusual pain or burning with urination. Call [facility] at with any of the above problems or if you have any questions about your medicines or recovery. FOLLOW UP VISIT: Make an appointment to see your doctor for approximately two weeks after surgery for a progress check and staple removal by calling the office at . Addtl [employer] Provider Instructions: Your blood levels were low during admission and you are noted to be iron deficient. You did not have any acute bleeding. Is recommended to continue an iron supplement and to have your blood levels rechecked in approximately 1 week as outpatient. You received an iron infusion prior to discharge. You had an oxygen requirement during admission, this gradually improved with fluids and incentive spirometry. You did not show any evidence of blood clots in your legs on ultrasound. He did not have a persistently fast heart rate or other signs of PE. You were breathing normally with normal oxygen levels on room air 3/4. I think this is atelectasis - use the IS regularly and it should improve as you get more mobile If you develop any new or worsening symptoms including fever, chills, sweats, chest pain, chest pressure, difficulty breathing, uncontrolled nausea/vomiting, rash, wheezing, passing out or nearly passing out, bleeding, black/bloody bowel movements, or other new or concerning symptoms please call your primary care physician, or call 911 for re-evaluation in the emergency department if you are very concerned. PT/OT evaluate and treat, WBAT TLSO for comfort when out of bed CBC and BMP in 5-7 days Irbesartan and HCTZ temporarily held for OTILIA Pending Studies at Discharge: No Stand-Alone Forms: My [employer], Smoking Cessation Skilled Items Patient informed of condition?: Yes DNR: No Discharge Level of Care: Acute rehab Communicable Disease: No Discharge Prognosis: Stable Lines: None Urinary Catheter: No Medications and DC Order Prescriptions: New aspirin 81 mg Tablet,Delayed Release (Dr/Ec) 81 mg PO BID 30 Days Qty: 60 0RF iron polysac-iron heme polypep 28 mg tablet 1 tab PO DAILY Qty: 30 0RF tramadol 50 mg tablet 50 mg PO Q8H PRN (Reason: pain) Qty: 30 0RF lidocaine 5 % Adhesive Patch,Medicated 1 patch transdermal QAM Qty: 15 0RF Rx Instructions: Apply to mid back at site of pain for 12 hours, then remove for 12 hours. Must have 12 hours off patch per 24 hour period. Continued simvastatin 40 mg tablet 40 mg PO QPM Qty: 90 3RF pantoprazole 40 mg tablet,delayed release (DR/EC) 40 mg PO QAM Qty: 90 3RF amlodipine 5 mg tablet 5 mg PO QAM Qty: 90 3RF cholecalciferol (vitamin D3) 2,000 unit tablet 2,000 units PO QAM Rx Instructions: otc unable to verify multivitamin [Multiple Vitamins] Tablet 1 tab PO QAM Rx Instructions: otc unable to verify acetaminophen [Tylenol Arthritis Pain] 650 mg tablet extended release 1,300 mg PO Q8H PRN (Reason: pain) Patient Comments: Take as directed per package instructions Rx Instructions: otc unable to verify PreserVision AREDS-2 250-90-40-1 mg Capsule 1 tab PO BID Rx Instructions: otc unable to verify Glucosamine Chondroitin 550-30-1 mg Capsule 1 cap PO BID Rx Instructions: otc unable to verify Systane (PF) 0.4-0.3 % Dropperette 1 drp OPHTHALMIC (EYE) BID PRN (Reason: Dry Eyes) Rx Instructions: otc unable to verify Held hydrochlorothiazide 12.5 mg capsule 12.5 mg PO DAILY Qty: 90 3RF Hold Instructions: Resume on 09/29/24. irbesartan 300 mg tablet 300 mg PO QAM Qty: 90 3RF Hold Instructions: Resume on 09/29/24. Discharge Orders: Discharge Order (Routine); Ordered 09/03/24 Ordered By: Lauren Ring Admission Data Admit Date/Time: 08/30/24 15:21 Attending Provider: Lauren Ring Admit Provider: Meng Haynes Primary Care Provider: Katarina Villarreal Other Providers: Meng Haynes; Mahad Layne; Prateek Sumner; Nils Mehta; Lucio Flores; Mahad Benjamin; River Santiago; Altaf Magallon Jr; Gerry Bean; Nava Miller; Anne Leroy; Shane Verde; Shane Hagan; Sanya Andino; Hoda Norris; Jason Teran; Arlyn Aviles; Jason Lynn; Vitaliy Long; Ulises Diaz; [facility] Other Interventions: Discharge Summary Assessment (RN) Last Done: 09/03/24 12:20 Hospital Stay Data Consultations 08/30/24 12:22 Consult Orthopedic Surgery Routine ED Decision to Admit Stat 08/30/24 19:47 Consult Cardiology Stat Procedures Performed Operation Date: 08/31/24 09:00 Actual Procedures p Bipolar right hip arthroplasty cemented.(Right) - Mahad Layne MD Diagnostic Imagining Performed 08/30/24 10:46 CT abd pelvis wo con Stat CT cervical spine wo con Stat CT chest diagnostic wo con Stat CT head/brain wo con Stat 09/02/24 09:05 US venous doppler LE BI Stat Pending Results Patient Have Any Pending Studies at Discharge: No Discharge Instructions Given to Patient (Per Discharging Provider) ACTIVITY RECOMMENDATIONS: Diet: * You may resume previous diet. Physical Therapy: * Aggressive physical therapy is not usually needed. You will learn to take care of yourself safely and walk. * Follow the "Hip Precautions Instructions." * In some cases, the social science professor at the hospital will arrange to have a therapist come to your house for the first couple of weeks to help you learn these skills. * You need to practice on your own or with the help of a family member as needed. * When you learn these skills, most of the therapy can be done on your own. Home Exercise: * You were shown a series of exercises in the hospital. Do these exercises three to four times each day including the exercises you were shown in physical therapy. Walking: * Get up and walk several times each day. For the first four weeks, try not to stand or walk for more than one hour at a time. If you do stand or walk for more than one hour, you will not hurt anything, but your leg will likely swell. * As you feel comfortable, you may change from the walker or crutches to a cane and then to independent walking. MEDICATIONS: New Medicine: * You will likely be taking one or more of these medicines: 1. Tramadol - Take, as directed, when you need it, every six hours to control your pain. 2. Aspirin - Thins your blood to lessen the chance of forming a blood clot. * The most common side effects of pain medicine and iron are nausea and constipation. If nausea or constipation is too much of a problem or if you have any questions about your new medicines or doses, call [facility] at . We will try to help you manage these issues. "VERY IMPORTANT TO READ AND REVIEW" Pain: * The immediate post-operative period after hip replacement surgery is often quite painful. * You are given a prescription for pain medicine. You should take it, as directed, when you need it, especially before physical therapy and before going to bed. Pain that interferes with sleep is very common and can last several months. * You will likely need pain medicine for the first two to four weeks. It will not stop all of the pain. The pain will lessen and as you feel better, you may change to milder pain medicine such as Tylenol. * The most common side effects of pain medicine are nausea and constipation, so don't take more than you need. SPECIAL CARE INSTRUCTIONS: TEDs/Elastic Stockings: * The white elastic stockings help limit swelling and prevent blood clots from forming in your legs. The more you wear them, the more they work. * Wear them for six weeks. Incision Site Care: * Remove dressing postoperative day 2 and then shower. Keep direct shower pressure off the incision site. * After showering, cover silvestre with dry gauze and change daily or more frequently if the dressing is getting saturated with drainage. * May completely stop using bandage if wound is dry and no drainage * Silvestre are removed between 2 and 3 weeks post-op. If your follow-up appointment is made before 2 weeks, please have your appointment re- scheduled. It is too early to remove the silvestre. Prevention of Infection: * Take antibiotics one hour before any dental cleaning, dental work, urological procedure, gastrointestinal procedure or any invasive surgery in order to prevent your new joint from getting infected. * You may get the antibiotics from the doctor performing the procedure or you may call our office at before and we will call in a prescription to the pharmacy of your choice. Things to Watch For: * Drainage from the incision site that occurs more than one week after your surgery. * Severely increased leg pain or swelling. * Increased redness at the incision site. * Fever above 102 degrees Fahrenheit. * Unusual chest pain or shortness of breath. * Unusual pain or burning with urination. Call [facility] at with any of the above problems or if you have any questions about your medicines or recovery. FOLLOW UP VISIT: Make an appointment to see your doctor for approximately two weeks after surgery for a progress check and staple removal by calling the office at . Total Time Total Time Spent Total Time Spent (In Minutes): I personally spent: 45 minutes today on clinical care activities including: reviewing chart notes and vital signs reviewing labs and repeat labs reviewing furniture rental consultant recs discussion with college and career counselor examining and counseling the patient writing orders writing prescriptions, discharge instructions documentation Coding Level of Care Code 44551 INP/OBS DISCH >30 MIN Diagnoses Fracture of right hip S72.001A Encounter type: initial encounter Fracture type: closed Closed T12 fracture S22.088A Encounter type: initial encounter Fracture morphology: other fracture Fall W19.XXXA Encounter type: initial encounter Acute hypoxic respiratory failure J96.01 First degree atrioventricular block by electrocardiogram I44.0 Acute kidney injury N17.9
== END 2024-09-03 13:20 | DRG 521 ==
LOC: ED 10:39 → 2N 15:21 → SUATTDRO 15:21 → 2N 17:20

== ENCOUNTER 2025-06-27 12:22 | Inpatient (IN) ==
[2025-06-27 13:08] LABS: Hematocrit (blood only) 28.6 % (42.0-52.0); Hemoglobin 9.5 g/dL (14.0-18.0); Immature Granulocytes # (auto) 0.01 K/uL (0.01-0.20); Immature Granulocytes % (auto) 0.2 %; Mean Corpuscular Hemoglobin 32.0 pg (25.0-34.0); Mean Corpuscular Volume 96.3 fL (80.0-100.0); Platelet Count 170 K/uL (130-400); RDW Standard Deviation 44.1 fL (36.4-46.3); Red Blood Count 2.97 M/uL (4.70-6.10); White Blood Count 5.36 K/ul (4.8-10.8)
[2025-06-27 13:25] LABS: Alanine Aminotransferase 16.0 U/L (7-52); Albumin Globulin Ratio 0.9 (0.9-2); Albumin Level 3.4 gm/dl (3.4-5.0); Alkaline Phosphatase 111.0 U/L (34-104); Anion Gap 7.0 (3-11); Bilirubin,Total 0.7 mg/dl (0.2-1.0); Blood Urea Nitrogen 41.0 mg/dl (6-23); Calcium 9.0 mg/dl (8.6-10.3); Carbon Dioxide 25.0 mmol/L (21-32); Chloride 103.0 mmol/L (98-107); Creatinine Clr Calc Pharmacy 24.9 ml/min; Globulin 3.8 gm/dl (2.5-4.0); Glucose 106.0 mg/dl (70-99(Fasting)); Potassium 4.5 mmol/L (3.5-5.1); Sodium 135.0 mmol/L (136-145); Total Protein 7.2 gm/dl (6.0-8.3)
--- NOTE | 2025-06-27 13:28 | XRay Report ---
XR chest 1V portable CLINICAL HISTORY: Dyspnea COMPARISON STUDY: 11/01/2024 FINDINGS: Heart size and pulmonary vasculature are normal. There is interval faint reticular and patc hy opacity at the right lung base. No lobar consolidation or pleural effusion. No pneumothorax. IMPRESSION: Early pneumonia right lung base. ACT 112: Negative or not required by law. Electronically signed by: Cuauhtemoc Crabtree M.D. 06/27/2025 1:27 PM
[2025-06-27 13:43] LABS: Influenza A virus by PCR Negative (Neg); Influenza B virus by PCR Negative (Neg); SARS CoV2 RNA(COVID-19) Ceph NEGATIVE (Negative)
--- NOTE | 2025-06-27 14:09 | Emergency Department Note ---
Impression & Plan Pneumonia, Acute hypoxic respiratory failure ED Provider Note NAME: ALEX REIS AGE: 89 SEX: M : 1935 ARRIVES VIA: Ambulance INFORMANT: Patient, ED PROVIDER(S): Julianne Marcus MD CHIEF COMPLAINT: Hypoxia HPI: This is an 89-year-old male presented for hypoxia. Patient states he went to urgent care as he did not feel well. For the past 1 week he has had symptoms of sore throat and nonproductive cough. He went over urgent care who advised to come to the ER as his oxygen level to 84% on room air. He reports feeling weak without nausea, vomiting. He has no lower extremity edema. No fevers as per family. Acting appropriately as well. ROS: See above HPI for pertinent positives & negatives. A total of 10 systems reviewed and were otherwise negative. PAST MEDICAL HISTORY: See Below PAST SURGICAL HISTORY: See Below FAMILY HISTORY: See Below SOCIAL HISTORY: See Below HOME MEDICATIONS: See Below ALLERGIES: See Below VITALS: See Below PHYSICAL EXAMINATION: General: resting comfortably in no acute distress Head: Normocephalic and atraumatic Eyes: Normal inspection, extraocular muscles intact Ear, nose, throat: Normal external exam Neck: Normal range of motion Respiratory: rhonchi at the base, right Cardiovascular: Regular rate/rhythm, no murmur GI: soft, nontender, no guarding or rebound Extremities: nontender, moves all extremities Neuro: The patient awake and alert, appropriately conversive, no focal deficits, symmetric faces Skin: Warm, dry, and intact MEDICAL DECISION MAKING: This is an 89-year-old male presenting for hypoxia. Patient is felt unwell for the past 1 week. Consider URI, pneumonia. Will do COVID/flu screening. Will do a chest x-ray and blood work. - Blood work reveals a slight anemia to 9.5, down 2 point since 06/11. Otherwise electrolytes are within normal limits. Creatinine around previous baseline 2.12. - Chest x-ray reveals a right lower lobe focal opacity concerning for pneumonia upon independent interpretation -COVID/flu/RSV negative -Will admit for pneumonia, hypoxia. Give ceftriaxone and azithromycin - Care discussed with Dr. Ring for admission Differential diagnosis: Pneumonia, URI, pleural effusion Independent History obtained from: Diagnostics interpreted by me: ECG: ECG independently interpreted by me with normal sinus rhythm, rate of 71,first-degree AV block, normal QRS, normal QTc, no ST segment elevations consistent with STEMI criteria Cardiac Monitoring: An order was placed for continuous cardiac monitoring. The monitor shows a rate of 70 with sinus rhythm. Past Med/Surg History Problem List (Updated 06/27/25 @ 18:05 by Julianne Marcus MD) Acute hypoxic respiratory failure (Acute) Pneumonia (Acute) CKD (chronic kidney disease), stage III CAP (community acquired pneumonia) Vomiting History of pulmonary embolism Abnormal chest CT LAD (lymphadenopathy), mediastinal Pulmonary hypertension Aftercare following hip joint replacement surgery Status post hemiarthroplasty of right hip Status post hip surgery Acute kidney injury First degree atrioventricular block by electrocardiogram Closed T12 fracture (Acute) Fall (Acute) Right inguinal hernia Proteinuria RUE numbness History of colon polyps Encounter for pre-operative examination Encounter for pre-operative examination Anemia (Acute) Benign colonic polyp (Acute) Eczema (Acute) Mitral regurgitation (Acute) Noise-induced hearing loss (Acute) Laryngopharyngeal reflux (Acute) Rotator cuff impingement syndrome of left shoulder (Acute) has had PT tx. Osteoarthritis of knee (Acute) Hypertension (Acute) Hypercholesterolemia (Acute) Actinic keratosis (Acute) Medical History Pulmonary embolism Fracture of right hip Acute hypoxic respiratory failure Double vision with both eyes open Started around 03/02/23- seen by ophthalmology- bleeds in eyes noted worrisome for DM Reason for upcoming MRI>resolved as of interview on 10/08/23 History of skin cancer of unknown type removed in office Surgical History H/O right inguinal hernia repair (10/18/23) Right Open Inguinal Hernia Repair with Mesh(Right) - Colton Cartwright, History of removal of cyst (03/27/23) FINAL DIAGNOSIS In office procedure Dr. Cartwright Skin, posterior neck, excision: - Epidermal cyst. History of esophagogastroduodenoscopy (EGD) History of tooth extraction all teeth removed H/O inguinal hernia repair left History of arthroscopy of left knee History of colonoscopy last 08/2021 @ [facility] Family History Unknown Hypertension Brother Colon cancer Prostate cancer Father Colon cancer Sister Cancer Other No family history of adverse response to anesthesia Denies family history of Ovarian cancer Myocardial infarction Breast cancer Social History Smoking Status: Never smoker Second Hand Exposure: Yes (hx growing up to age 19); Do You Dip or Chew Tobacco: No; Hx Alcohol Use: No Hx Substance Use: No Preferred Language: Serbian Communication Ability: Effective Visual Impairment: No Limitations Hearing Ability: Normal Director Of Sleep Required: No Beliefs That Will Affect Care: None marital status: Current Living Situation: Spouse current occupational status: retired 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 Feels Safe at Home: Yes Childhood Exposure to Second-Hand Smoke: Yes Diet: regular caffeine: No during the past year weight has: remained stable Dental Care, Regularly: No Physical Activity Frequency: Does not Exercise Seatbelt Use: always Sunscreen Use: No Assistive Devices: Cane Allergies Allergies Allergy/AdvReac Type Severity Reaction Status Date / Time lisinopril AdvReac Severe elevated Verified 06/27/25 15:15 High Blood pressure - emergent Home Meds Home Medications Medication Instructions Recorded Confirmed cholecalciferol (vitamin D3) 50 2,000 units PO QAM 01/27/19 06/27/25 mcg (2,000 unit) tablet acetaminophen 650 mg 1,300 mg PO Q8H PRN pain 08/24/21 06/27/25 tablet,extended release (Tylenol Arthritis Pain) glucosamine sulf dipot 1 cap PO BID 08/30/21 06/27/25 chlr,msm,chond 550 mg-C 30 mg-az 1 mg capsule (Glucosamine Chondroitin) vit C 250 mg-vit E 90 mg-zinc 40 1 tab PO BID 08/30/21 06/27/25 mg-copper 1 [id number] capsule (PreserVision AREDS-2) multivitamin (Multiple Vitamins 1 tab PO QAM 09/05/22 06/27/25 tablet) amoxicillin 500 mg capsule 2,000 mg PO DIRECTED PRN 1 HR 06/27/25 06/27/25 PRIOR TO DENTAL OR PODIATRY PROCEDURES ferrous sulfate 325 mg (65 mg 325 mg PO 3XWK 06/27/25 06/27/25 iron) tablet multivitamin with iron 1 tab PO DAILY 06/27/25 06/27/25 peg 400-propylene glycol (PF) 0.4 1 drp OPB BID PRN Dry Eyes 06/27/25 06/27/25 %-0.3 % eye drops in a dropperette Previous Rx's Medication Instructions Recorded hydrochlorothiazide 12.5 mg capsule 12.5 mg PO DAILY #90 caps 10/29/24 simvastatin 40 mg tablet 40 mg PO QPM #90 tabs 12/03/24 pantoprazole 40 mg tablet,delayed 40 mg PO QAM #90 tabs 12/22/24 release tramadol 50 mg tablet 50 mg PO Q8H PRN pain #30 tabs 03/19/25 irbesartan 300 mg tablet 300 mg PO QAM HTN #90 tabs 04/06/25 amlodipine 5 mg tablet 5 mg PO DAILY #90 tabs 04/10/25 Results & Data (ED) Vital Signs Vital Signs - 24 hr 06/27/25 12:38 06/27/25 12:39 06/27/25 12:45 Temperature 37.0 C Temperature Source Oral Pulse Rate 75 74 Pulse Rate [Left Finger] Pulse Rate from SpO2 Sensor Pulse Rhythm [Left Finger] Respiratory Rate 20 Respiratory Effort / Characteristics Respiratory Depth Blood Pressure 157/71 H Blood Pressure [Left Arm] Blood Pressure Mean 99 Blood Pressure Mean [Left Arm] Blood Pressure Position [Left Arm] Pulse Oximetry 88 L Oxygen Delivery Method Nasal Cannula Room Air Oxygen Flow Rate 2 Fraction of Inspired Oxygen 95 Sepsis Recent Fever Within 48 Hours No Sepsis New/Unexplained Change in Mental Status No Sepsis Action Taken by Nursing No Action Required 06/27/25 12:52 06/27/25 13:00 06/27/25 13:30 Temperature Temperature Source Pulse Rate 69 68 Pulse Rate [Left Finger] Pulse Rate from SpO2 Sensor 68 69 Pulse Rhythm [Left Finger] Respiratory Rate 22 16 Respiratory Effort / Characteristics Respiratory Depth Blood Pressure 146/70 H 178/75 H Blood Pressure [Left Arm] Blood Pressure Mean 112 114 Blood Pressure Mean [Left Arm] Blood Pressure Position [Left Arm] Pulse Oximetry 94 Oxygen Delivery Method Nasal Cannula Oxygen Flow Rate 2 Fraction of Inspired Oxygen Sepsis Recent Fever Within 48 Hours Sepsis New/Unexplained Change in Mental Status Sepsis Action Taken by Nursing 06/27/25 14:00 06/27/25 14:30 06/27/25 14:30 Temperature Temperature Source Pulse Rate 75 Pulse Rate [Left Finger] Pulse Rate from SpO2 Sensor 74 Pulse Rhythm [Left Finger] Respiratory Rate 21 Respiratory Effort / Characteristics Respiratory Depth Blood Pressure 139/113 H 150/73 H 150/73 H Blood Pressure [Left Arm] Blood Pressure Mean 121 106 106 Blood Pressure Mean [Left Arm] Blood Pressure Position [Left Arm] Pulse Oximetry 95 Oxygen Delivery Method Oxygen Flow Rate Fraction of Inspired Oxygen Sepsis Recent Fever Within 48 Hours Sepsis New/Unexplained Change in Mental Status Sepsis Action Taken by Nursing 06/27/25 14:30 06/27/25 14:30 06/27/25 14:30 Temperature Temperature Source Pulse Rate Pulse Rate [Left Finger] Pulse Rate from SpO2 Sensor Pulse Rhythm [Left Finger] Respiratory Rate Respiratory Effort / Characteristics Respiratory Depth Blood Pressure 150/73 H 150/73 H 150/73 H Blood Pressure [Left Arm] Blood Pressure Mean 106 106 106 Blood Pressure Mean [Left Arm] Blood Pressure Position [Left Arm] Pulse Oximetry Oxygen Delivery Method Oxygen Flow Rate Fraction of Inspired Oxygen Sepsis Recent Fever Within 48 Hours Sepsis New/Unexplained Change in Mental Status Sepsis Action Taken by Nursing 06/27/25 14:54 06/27/25 14:56 06/27/25 15:00 Temperature Temperature Source Pulse Rate 76 Pulse Rate [Left Finger] 75 Pulse Rate from SpO2 Sensor 76 Pulse Rhythm [Left Finger] Regular Respiratory Rate 23 20 Respiratory Effort / Characteristics Non-Labored Respiratory Depth Normal Blood Pressure 151/62 H 147/74 H Blood Pressure [Left Arm] 151/62 H Blood Pressure Mean 91 83 Blood Pressure Mean [Left Arm] 91 Blood Pressure Position [Left Arm] Sitting Pulse Oximetry 92 93 Oxygen Delivery Method Nasal Cannula Oxygen Flow Rate 2 Fraction of Inspired Oxygen Sepsis Recent Fever Within 48 Hours Sepsis New/Unexplained Change in Mental Status Sepsis Action Taken by Nursing 06/27/25 16:31 Temperature Temperature Source Pulse Rate Pulse Rate [Left Finger] 70 Pulse Rate from SpO2 Sensor Pulse Rhythm [Left Finger] Regular Respiratory Rate 20 Respiratory Effort / Characteristics Respiratory Depth Blood Pressure Blood Pressure [Left Arm] 162/73 H Blood Pressure Mean Blood Pressure Mean [Left Arm] 102 Blood Pressure Position [Left Arm] Pulse Oximetry 93 Oxygen Delivery Method Oxygen Flow Rate Fraction of Inspired Oxygen Sepsis Recent Fever Within 48 Hours Sepsis New/Unexplained Change in Mental Status Sepsis Action Taken by Nursing Laboratory Data 06/27/25 12:34 06/27/25 12:34 Lab Results 06/27/25 Range/Units 12:34 WBC 5.36 (4.8-10.8) K/ul RBC 2.97 L (4.70-6.10) M/uL Hgb 9.5 L (14.0-18.0) g/dL Hct 28.6 L (42.0-52.0) % MCV 96.3 (80.0-100.0) fL MCH 32.0 (25.0-34.0) pg MCHC 33.2 (32.0-36.0) g/dL RDW Std Deviation 44.1 (36.4-46.3) fL RDW Coeff of Fer 12.6 (11.5-14.5) % Plt Count 170 (130-400) K/uL MPV 9.7 (9.4-12.4) fL Immature Gran % (Auto) 0.2 % Neut % (Auto) 55.2 % Lymph % (Auto) 35.8 % Stanley % (Auto) 5.4 % Eos % (Auto) 2.8 % Baso % (Auto) 0.6 % Neut # (Auto) 2.96 (1.40-6.50) K/uL Lymph # (Auto) 1.92 (1.20-3.40) K/uL Stanley # (Auto) 0.29 (0.11-0.59) K/uL Eos # (Auto) 0.15 (0.00-0.50) K/uL Baso # (Auto) 0.03 (0.00-0.20) K/uL Immature Gran # (Auto) 0.01 (0.01-0.20) K/uL Sodium 135 L (136-145) mmol/L Potassium 4.5 (3.5-5.1) mmol/L Chloride 103 (98-107) mmol/L Carbon Dioxide 25 (21-32) mmol/L Anion Gap 7 (3-11) BUN 41 H (6-23) mg/dl Creatinine 2.12 H (0.6-1.4) mg/dl Est Cr Clr Drug Dosing 24.9 ml/min eGFR 29.38 BUN/Creatinine Ratio 19.3 (10-20) Glucose 106 H (70-99(Fasting)) mg/dl Calcium 9.0 (8.6-10.3) mg/dl Total Bilirubin 0.7 (0.2-1.0) mg/dl AST 19 (13-39) U/L ALT 16 (7-52) U/L Alkaline Phosphatase 111 H (34-104) U/L Total Protein 7.2 (6.0-8.3) gm/dl Albumin 3.4 (3.4-5.0) gm/dl Globulin 3.8 (2.5-4.0) gm/dl Albumin/Globulin Ratio 0.9 (0.9-2) Procalcitonin 0.24 (0-0.5) ng/ml SARS-CoV-2 (PCR) NEGATIVE (Negative) Influenza Type A (PCR) Negative (Neg) Influenza Type B (PCR) Negative (Neg) RSV (RT-PCR) Negative (Neg) Administered Medications Discontinued Medications Ceftriaxone Sodium (Rocephin) 2,000 mg in 50 mls @ 100 mls/hr IV NOW STA Stop: 06/27/25 14:18 Last Infusion: 06/27/25 14:56 Dose: Infused Documented By: marlin Admin: 06/27/25 14:26 Dose: 100 mls/hr Documented By: KAMI Azithromycin (Zithromax) 500 mg in 255 mls @ 127.5 mls/hr IV NOW ONE Stop: 06/27/25 15:48 Last Infusion: 06/27/25 17:06 Dose: Infused Documented By: marlin Admin: 06/27/25 14:44 Dose: 127.5 mls/hr Documented By: [facility] Imaging Data Radiologist's Impression: Chest X-Ray 06/27/25 12:52 XR chest 1V portable CLINICAL HISTORY: Dyspnea COMPARISON STUDY: 11/01/2024 FINDINGS: Heart size and pulmonary vasculature are normal. There is interval faint reticular and patchy opacity at the right lung base. No lobar consolidation or pleural effusion. No pneumothorax. IMPRESSION: Early pneumonia right lung base. ACT 112: Negative or not required by law. Electronically signed by: Cuauhtemoc Crabtree M.D. 06/27/2025 1:27 PM Discharge Plan Visit Data Chief Complaint: Shortness of Breath/Dyspnea Stated Complaint: SOB ED Provider: Julianne Marcus Discharge Problem: Pneumonia, Acute hypoxic respiratory failure Patient Disposition: Admitted As Inpatient Condition: Fair Discharge Instructions Interventions: ED Discharge Assessment Last Done: 06/27/25 17:25 Forms Stand Alone Forms: [facility] Prescriptions Prescriptions: No Action hydrochlorothiazide 12.5 mg capsule 12.5 mg PO DAILY Qty: 90 3RF Hold Instructions: Resume on 09/29/24. simvastatin 40 mg tablet 40 mg PO QPM Qty: 90 3RF pantoprazole 40 mg tablet,delayed release (DR/EC) 40 mg PO QAM Qty: 90 3RF irbesartan 300 mg tablet 300 mg PO QAM Qty: 90 3RF Hold Instructions: Resume on 09/29/24. amlodipine 5 mg tablet 5 mg PO DAILY Qty: 90 3RF cholecalciferol (vitamin D3) 2,000 unit tablet 2,000 units PO QAM multivitamin [Multiple Vitamins] Tablet 1 tab PO QAM acetaminophen [Tylenol Arthritis Pain] 650 mg tablet extended release 1,300 mg PO Q8H PRN (Reason: pain) Patient Comments: Take as directed per package instructions tramadol 50 mg tablet 50 mg PO Q8H PRN (Reason: pain) Qty: 30 0RF PreserVision AREDS-2 250-90-40-1 mg Capsule 1 tab PO BID Glucosamine Chondroitin 550-30-1 mg Capsule 1 cap PO BID multivitamin with iron Tablet 1 tab PO DAILY Systane (PF) 0.4-0.3 % Dropperette 1 drp OPB BID PRN (Reason: Dry Eyes) amoxicillin 500 mg capsule 2,000 mg PO DIRECTED PRN (Reason: 1 HR PRIOR TO DENTAL OR PODIATRY PROCEDURES) ferrous sulfate 325 mg (65 mg iron) tablet 325 mg PO 3XWK Referrals Referrals: Katarina Villarreal CRNP [Primary Care Provider] - Discharge Problem: Pneumonia Qualifiers: Pneumonia type: due to unspecified organism Laterality: right Lung location: l ower lobe of lung Qualified Code(s): J18.9 - Pneumonia, unspecified organism
[2025-06-27] MEDS: cefTRIAXone SODIUM 2,000 MG/50 ML BAG IV STA (14:26)
--- NOTE | 2025-06-27 14:26 | History & Physical Report ---
Date of Service June 27, 2025 Assessment & Plan (1) CAP (community acquired pneumonia): (2) Pulmonary hypertension: (3) Anemia: (4) Hypertension: (5) CKD (chronic kidney disease), stage III: Plan 89-year-old man with CKD admitted with community-acquired pneumonia CAP - continue azithromycin and ceftriaxone, supplemental O2, check procalcitonin - only 0.2 HTN - continue amliodipine and ARB and hold HCTZ CKD 3b with GFR around 30, mild increase in Cr above baseline. followed by Dr. Pitt as outpatient -hold HCTZ -AM BMP Hx PE noted, was provoked, current presentation not suspicious for PE Hx pulmonary hypertension noted HLD - continue simvastatin DVT ppx - SQ heparin History of Present Illness Chief Complaint: shortness of breath Primary Care Provider: MICKY Huddleston 89 y/o with CKD and HTN admitted with pneumonia cough chills malaise past few days. his at bedside feels and a lot of the history he has not been doing well for a few days with low appetite and dry cough. he denies shortness of breath or chest pain they saw evaluation in urgent care today and his oxygen saturation was 85% on room air. when arrived in the ED it was 88% on room air. she reports he looks much much better after some IV fluids and oxygen Hx PE in past provoked by hip replacement No history of COPD or lung disease, non-smoker has not been hospitalized lately or in a care facility Allergies Allergy/AdvReac Type Severity Reaction Status Date / Time lisinopril AdvReac Severe elevated Verified 06/27/25 15:15 High Blood pressure - emergent Home Medications Medication Instructions Recorded Confirmed Type cholecalciferol (vitamin D3) 50 2,000 units PO QAM 01/27/19 06/27/25 History mcg (2,000 unit) tablet acetaminophen 650 mg 1,300 mg PO Q8H PRN pain 08/24/21 06/27/25 History tablet,extended release (Tylenol Arthritis Pain) glucosamine sulf dipot 1 cap PO BID 08/30/21 06/27/25 History chlr,msm,chond 550 mg-C 30 mg-az 1 mg capsule (Glucosamine Chondroitin) vit C 250 mg-vit E 90 mg-zinc 40 1 tab PO BID 08/30/21 06/27/25 History mg-copper 1 [id number] capsule (PreserVision AREDS-2) multivitamin (Multiple Vitamins 1 tab PO QAM 09/05/22 06/27/25 History tablet) hydrochlorothiazide 12.5 mg capsule 12.5 mg PO DAILY #90 caps 10/29/24 06/27/25 Rx simvastatin 40 mg tablet 40 mg PO QPM #90 tabs 12/03/24 06/27/25 Rx pantoprazole 40 mg tablet,delayed 40 mg PO QAM #90 tabs 12/22/24 06/27/25 Rx release tramadol 50 mg tablet 50 mg PO Q8H PRN pain #30 tabs 03/19/25 06/27/25 Rx irbesartan 300 mg tablet 300 mg PO QAM HTN #90 tabs 04/06/25 06/27/25 Rx amlodipine 5 mg tablet 5 mg PO DAILY #90 tabs 04/10/25 06/27/25 Rx amoxicillin 500 mg capsule 2,000 mg PO DIRECTED PRN 1 HR 06/27/25 06/27/25 History PRIOR TO DENTAL OR PODIATRY PROCEDURES ferrous sulfate 325 mg (65 mg 325 mg PO 3XWK 06/27/25 06/27/25 History iron) tablet multivitamin with iron 1 tab PO DAILY 06/27/25 06/27/25 History peg 400-propylene glycol (PF) 0.4 1 drp OPB BID PRN Dry Eyes 06/27/25 06/27/25 History %-0.3 % eye drops in a dropperette Past Med/Surg History Problem List Acute hypoxic respiratory failure (Acute) Pneumonia (Acute) CKD (chronic kidney disease), stage III CAP (community acquired pneumonia) Vomiting History of pulmonary embolism Abnormal chest CT LAD (lymphadenopathy), mediastinal Pulmonary hypertension Aftercare following hip joint replacement surgery Status post hemiarthroplasty of right hip Status post hip surgery Acute kidney injury First degree atrioventricular block by electrocardiogram Closed T12 fracture (Acute) Fall (Acute) Right inguinal hernia Proteinuria RUE numbness History of colon polyps Encounter for pre-operative examination Encounter for pre-operative examination Anemia (Acute) Benign colonic polyp (Acute) Eczema (Acute) Mitral regurgitation (Acute) Noise-induced hearing loss (Acute) Laryngopharyngeal reflux (Acute) Rotator cuff impingement syndrome of left shoulder (Acute) has had PT tx. Osteoarthritis of knee (Acute) Hypertension (Acute) Hypercholesterolemia (Acute) Actinic keratosis (Acute) Medical History Pulmonary embolism Fracture of right hip Acute hypoxic respiratory failure Double vision with both eyes open Started around 03/02/23- seen by ophthalmology- bleeds in eyes noted worrisome for DM Reason for upcoming MRI>resolved as of interview on 10/08/23 History of skin cancer of unknown type removed in office Surgical History H/O right inguinal hernia repair (10/18/23) Right Open Inguinal Hernia Repair with Mesh(Right) - Colton Cartwright DO History of removal of cyst (03/27/23) FINAL DIAGNOSIS In office procedure Dr. Cartwright Skin, posterior neck, excision: - Epidermal cyst. History of esophagogastroduodenoscopy (EGD) History of tooth extraction all teeth removed H/O inguinal hernia repair left History of arthroscopy of left knee History of colonoscopy last 08/2021 @ [facility] Family History Unknown Hypertension Brother Colon cancer Prostate cancer Father Colon cancer Sister Cancer Other No family history of adverse response to anesthesia Denies family history of Ovarian cancer Myocardial infarction Breast cancer Social History Smoking Status: Never smoker Second Hand Exposure: Yes (hx growing up to age 19); Do You Dip or Chew Tobacco: No; Hx Alcohol Use: No Hx Substance Use: No Preferred Language: Uzbek Communication Ability: Effective Visual Impairment: No Limitations Hearing Ability: Normal French Teacher Required: No Beliefs That Will Affect Care: None marital status: Current Living Situation: Spouse current occupational status: retired 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 Feels Safe at Home: Yes Childhood Exposure to Second-Hand Smoke: Yes Diet: regular caffeine: No during the past year weight has: remained stable Dental Care, Regularly: No Physical Activity Frequency: Does not Exercise Seatbelt Use: always Sunscreen Use: No Assistive Devices: Cane Review of Systems Review of Systems: All systems reviewed & are unremarkable except as noted in HPI & below Physical Exam Physical Exam: Last 24h vitals reviewed GEN: no acute distress, sitting in bed, eating sandwich HEENT: pupils equal, sclerae anicteric, moist MM RESP: normal WOB, bibasilar crackles right greater than left, right mid field crackles CV: reg no mrg. EJ is visible sitting upright ABD: soft/nt/nd +BT : no stein SKIN: warm and dry, no generalized rashes extremities: Mild bilateral pedal and ankle edema, warm and well-perfused NEURO: AOx person, place, and situation. Face symmetric, speech normal, moves 4 ext spontaneously and equally Results & Data Results & Data Vital Signs (Past 12 Hours) Vital Signs Temp Pulse Resp BP Pulse Ox O2 Del Method O2 Flow Rate 06/27/25 12:52 94 Nasal Cannula 2 06/27/25 12:45 74 06/27/25 12:39 37.0 C 75 20 157/71 H 88 L Room Air 06/27/25 12:38 Nasal Cannula 2 FiO2 06/27/25 12:52 06/27/25 12:45 06/27/25 12:39 06/27/25 12:38 95 Laboratory Results WBC normal, Hg 9.5 chronic Na 135, BUN 41, Cr 2.12 (near baseline of up to 1.9s) flu/covid/rsv negative Personally reviewed CXR film shows right base infiltrate Personally reviewed EKG tracing - nsr no acute ischemic changes, TWI in III and Avf, 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
[2025-06-27] MEDS: AZITHROMYCIN 500 MG/255 ML BAG IV ONE (14:44)
[2025-06-27] MEDS ORDERED: ONDANSETRON INJ 2 MG/ML 2 ML VIAL IV PRN (18:11)
[2025-06-27] MEDS ORDERED: MAGNESIUM HYDROXIDE SUSP 30 ML UDC PO PRN (18:11)
[2025-06-27] MEDS ORDERED: ACETAMINOPHEN 325 MG TAB PO PRN (18:11)
[2025-06-27] MEDS ORDERED: ALUMINUM/MAGNESIUM SUSP 30 ML UDC PO PRN (18:11)
[2025-06-27] MEDS ORDERED: POLYETHYLENE (MIRALAX) 17 GM PACK PO PRN (18:11)
[2025-06-27] MEDS ORDERED: MELATONIN 3 MG TAB PO PRN (18:11)
[2025-06-27] MEDS ORDERED: ARTIFICIAL TEARS OP PRN (18:21)
[2025-06-27] MEDS: SIMVASTATIN 40 MG TAB PO SCH (20:32)
[2025-06-27] MEDS ORDERED: NON-FORMULARY MEDICATION (Glucos Sul 2kcl-Msm-Chond-C-Mn [Glucosamine Chondroitin] 550-30- PO SCH (21:00)
[2025-06-27] MEDS: HEPARIN SOD 5,000 UNIT/0.5 ML VIAL SQ SCH (21:42)
[2025-06-28 06:04] LABS: Hematocrit (blood only) 27.0 % (42.0-52.0); Hemoglobin 9.1 g/dL (14.0-18.0); Mean Corpuscular Hemoglobin 32.4 pg (25.0-34.0); Mean Corpuscular Volume 96.1 fL (80.0-100.0); Platelet Count 151 K/uL (130-400); RDW Standard Deviation 44.0 fL (36.4-46.3); Red Blood Count 2.81 M/uL (4.70-6.10); White Blood Count 6.08 K/ul (4.8-10.8)
[2025-06-28 06:25] LABS: Anion Gap 7.0 (3-11); Blood Urea Nitrogen 39.0 mg/dl (6-23); Calcium 8.7 mg/dl (8.6-10.3); Carbon Dioxide 25.0 mmol/L (21-32); Chloride 106.0 mmol/L (98-107); Creatinine Clr Calc Pharmacy 25.8 ml/min; Glucose 89.0 mg/dl (70-99(Fasting)); Potassium 4.3 mmol/L (3.5-5.1); Sodium 138.0 mmol/L (136-145)
[2025-06-28] MEDS: AZITHROMYCIN 250 MG TAB PO SCH (07:55)
[2025-06-28] MEDS: LOSARTAN POTASSIUM 50 MG TAB PO SCH (07:55)
[2025-06-28] MEDS: cefTRIAXone SODIUM 2,000 MG/50 ML BAG IV SCH (07:56)
--- NOTE | 2025-06-28 14:26 | Hospitalist Progress Note ---
Date of Service June 28, 2025 Assessment & Plan (1) CAP (community acquired pneumonia): (2) Pulmonary hypertension: (3) Anemia: (4) Hypertension: (5) CKD (chronic kidney disease), stage III: Plan 89-year-old man with CKD admitted with community-acquired pneumonia CAP - continue azithromycin and ceftriaxone, supplemental O2 - continues to have hypoxia, and remain in hospital on IV antibiotics reassess tomorrow HTN - continue amlodipine and ARB and hold HCTZ CKD 3b with GFR around 30, mild increase in Cr above baseline. followed by Dr. Pitt as outpatient -hold HCTZ - creatinine is slightly improved and at his baseline today. Mild hyponatremia related to pneumonia has resolved Hx PE noted, was provoked, current presentation not suspicious for PE Hx pulmonary hypertension noted HLD - continue simvastatin DVT ppx - SQ heparin Admission and Anticipated Discharge Date Admission Date: June 28, 2025 Subjective denies shortness of breath and has persistent dry cough. notes improved appearance post-hospital admission. Nursing staff observed nocturnal desaturation to low 80s after he removed removing oxygen support, accompanied by increased confusion. Baseline history of mild confusion and forgetfulness, and his family reports that he is a little worse than usual right now. Physical Exam Physical Exam: General Appearance: Awake, alert, oriented to place and basic situation, forgetful, hard of hearing, sitting up in hospital bed. Vital signs: Reviewed past 24h vital signs in EMR, notable for: O2 sat 94% on 2 L nasal cannula, no fever overnight. HEENT: Hard of hearing. Respiratory: Clear lungs anteriorly, bibasilar crackles posteriorly, no wheezes. Cardiovascular: Regular heart rhythm, no murmurs, no JVD. Gastrointestinal: Abdomen soft, nontender, nondistended, normal bowel sounds. Extremities: Lower extremities warm, well perfused, no edema. Skin: Warm and dry, no rash. Neurological: Awake, alert, oriented to place and basic situation, forgetful. Psychiatric: Normal. Results & Data Results & Data Vital Signs (Past 12 Hours) Vital Signs Temp Pulse Resp BP Pulse Ox O2 Del Method O2 Flow Rate 06/28/25 07:53 36.3 C L 78 18 171/70 H 94 Nasal Cannula 2 06/28/25 07:45 Nasal Cannula 2 Laboratory Results - Laboratory Studies: - Na: 138 - Cr: 2.04 - WBC: 6 - Hgb: 9.1 PG Care Time/CCT Total # of Minutes Spent Total Time Spent with Patient: Total time spent is greater than 50% in coordination of care (as documented) at patient's floor/unit and/or counseling patient: Coding Level of Care Code 85379 SUB INP/OBS CARE 2/35MIN Diagnoses CAP (community acquired pneumonia) J18.9 Pulmonary hypertension I27.20 Anemia D64.9 Hypertension I10 CKD (chronic kidney disease), stage III N18.30
[2025-06-29 07:15] VITALS: BP 153/77; PULSE 82; RESP 18; TEMP 98.8; O2SAT 94
[2025-06-29] MEDS: FUROSEMIDE INJ 20 MG/2 ML VIAL IV ONE (09:06)
[2025-06-29] MEDS: POTASSIUM CHLORIDE CRTAB 20 MEQ TABCR PO ONE (09:07)
--- NOTE | 2025-06-29 10:32 | Electrocardiogram Report ---
Test Reason : Blood Pressure : */* mmHG Vent. Rate : 71 BPM Atrial Rate : 71 BPM P-R Int : 284 ms QRS Dur : 104 ms QT Int : 398 ms P-R-T Axes : 7 -23 -11 degrees QTcB Int : 432 ms Sinus rhythm with 1st degree A-V block Cannot rule out Anterior infarct (cited on or before 01-Sep-2024) Abnormal ECG When compared with ECG of 01-Nov-2024 16:07, Inverted T waves have replaced nonspecific T wave abnormality in Inferior leads Confirmed by Kellie Regan (Barb) on 06/29/2025 10:31:37 AM Referred By: REFERRED SELF Confirmed By: Kellie Regan
--- NOTE | 2025-06-29 13:35 | Hospitalist Progress Note ---
Date of Service June 29, 2025 Assessment & Plan (1) CAP (community acquired pneumonia): (2) Pulmonary hypertension: (3) Anemia: (4) Hypertension: (5) CKD (chronic kidney disease), stage III: Plan 89-year-old man with CKD admitted with community-acquired pneumonia CAP - completed azithromycin and continue ceftriaxone, supplemental O2 - continues to have hypoxia, though overall improved Has had elevated BNPs in the past, bibasilar crackles persist on lung exam, consider component of HF driving hypoxia Trial of diuresis with lasix 20 mg IV and oral potassium AM labs Reassess hypoxia this afternoon HTN - continue amlodipine and ARB and resume HCTZ CKD 3b with GFR around 30, mild increase in Cr above baseline. followed by Dr. Pitt as outpatient -Cr is back to baseline Mild hyponatremia related to pneumonia has resolved Hx PE noted, was provoked, current presentation not suspicious for PE Hx pulmonary hypertension noted HLD - continue simvastatin DVT ppx - SQ heparin Admission and Anticipated Discharge Date Admission Date: June 28, 2025 Subjective Macho says he feels fine Not short of breath Cough improved, no longer productive No chest pain Physical Exam Physical Exam: General Appearance: sitting up in bed, looks better Vital signs: O2 94% on 4L HEENT: Hard of hearing. Respiratory: Clear lungs anteriorly, bibasilar crackles posteriorly, no wheezes. Cardiovascular: Regular heart rhythm, no murmurs, no JVD. Gastrointestinal: Abdomen soft, nontender, nondistended, normal bowel sounds. Extremities: Lower extremities warm, well perfused, no edema. Skin: Warm and dry, no rash. Neurological: Awake, alert, oriented to place and basic situation, forgetful. Psychiatric: Normal. Results & Data Results & Data Vital Signs (Past 12 Hours) Vital Signs Temp Pulse Resp BP Pulse Ox O2 Del Method O2 Flow Rate 06/29/25 07:40 Nasal Cannula 2 06/29/25 07:13 37.1 C 82 18 153/77 H 94 Nasal Cannula 2 PG Care Time/CCT Total # of Minutes Spent Total Time Spent with Patient: Total time spent is greater than 50% in coordination of care (as documented) at patient's floor/unit and/or counseling patient: Coding Level of Care Code 94635 SUB INP/OBS CARE 2/35MIN Diagnoses CAP (community acquired pneumonia) J18.9 Pulmonary hypertension I27.20 Anemia D64.9 Hypertension I10 CKD (chronic kidney disease), stage III N18.30
--- NOTE | 2025-06-29 13:54 | Discharge Summary ---
Discharge Summary Date of Service June 29, 2025 Principal Dx & Hospital Course #1 = Principal Diagnosis (1) CAP (community acquired pneumonia): (2) Pulmonary hypertension: (3) Anemia: (4) Hypertension: (5) CKD (chronic kidney disease), stage III: Plan 89-year-old man with CKD admitted with community-acquired pneumonia. He presented with malaise, poor po, cough, RLL infiltrate on CXR, and hypoxia CAP - completed azithromycin 500 mg x 3 doses, treated with ceftriaxone which was changed to augmentin at time of discharge for total 5d course Hypoxia improved - no 90-94% on room air Gave dose of lasix on AM 06/29 and resuming his usual HCTZ on discharge HTN - continue amlodipine and ARB and resume HCTZ CKD 3b with GFR around 30, mild increase in Cr above baseline at time of admission. followed by Dr. Pitt as outpatient -Cr is back to baseline Mild hyponatremia related to pneumonia has resolved Hx PE noted, was provoked, current presentation not suspicious for PE Hx pulmonary hypertension noted HLD - continue simvastatin Returning home with his family Admission HPI Per Admitting Provider 89 y/o with CKD and HTN admitted with pneumonia cough chills malaise past few days. his at bedside feels and a lot of the history he has not been doing well for a few days with low appetite and dry cough. he denies shortness of breath or chest pain they saw evaluation in urgent care today and his oxygen saturation was 85% on room air. when arrived in the ED it was 88% on room air. she reports he looks much much better after some IV fluids and oxygen Hx PE in past provoked by hip replacement No history of COPD or lung disease, non-smoker has not been hospitalized lately or in a care facility Discharge Exam see prog note today Discharge Plan Discharge Items Patient Disposition: Home - Self-Care Reason For Visit: [place] Discharge Diagnosis: Community Acquired Pneumonia Condition on Discharge: Good Activity: Resume your previous activity Non-emergency contact: Primary Care Provider Call non-emergency contact if: you have any medication questions, your symptoms worsen and your temperature is above 101 Follow-up/Referrals: Katarina Villarreal CRNP [Primary Care Provider] - Diet: Regular Addtl Attending Provider Instructions: You were treated for community acquired pneumonia which caused low oxygen, cough, and malaise This has all improved This is treated with two antibiotics: You completed a course of azithromycin while in the hospital - the three-dose regimen will still be active in your body for about 10 days I prescribed amoxicillin - you need two more days of this, start tomorrow morning Resume your usual home medications It was a pleasure taking care of you in the hospital, Lauren Ring MD Pending Studies at Discharge: No Stand-Alone Forms: [facility], Smoking Cessation Medications and DC Order Prescriptions: New amoxicillin-pot clavulanate [Augmentin] 500-125 mg tablet 1 tab PO BID Qty: 4 0RF Rx Instructions: Start on AM of 06/30 Continued hydrochlorothiazide 12.5 mg capsule 12.5 mg PO DAILY Qty: 90 3RF Hold Instructions: Resume on 09/29/24. simvastatin 40 mg tablet 40 mg PO QPM Qty: 90 3RF pantoprazole 40 mg tablet,delayed release (DR/EC) 40 mg PO QAM Qty: 90 3RF irbesartan 300 mg tablet 300 mg PO QAM Qty: 90 3RF Hold Instructions: Resume on 09/29/24. amlodipine 5 mg tablet 5 mg PO DAILY Qty: 90 3RF cholecalciferol (vitamin D3) 2,000 unit tablet 2,000 units PO QAM multivitamin [Multiple Vitamins] Tablet 1 tab PO QAM acetaminophen [Tylenol Arthritis Pain] 650 mg tablet extended release 1,300 mg PO Q8H PRN (Reason: pain) Patient Comments: Take as directed per package instructions tramadol 50 mg tablet 50 mg PO Q8H PRN (Reason: pain) Qty: 30 0RF PreserVision AREDS-2 250-90-40-1 mg Capsule 1 tab PO BID Glucosamine Chondroitin 550-30-1 mg Capsule 1 cap PO BID multivitamin with iron Tablet 1 tab PO DAILY Systane (PF) 0.4-0.3 % Dropperette 1 drp OPB BID PRN (Reason: Dry Eyes) amoxicillin 500 mg capsule 2,000 mg PO DIRECTED PRN (Reason: 1 HR PRIOR TO DENTAL OR PODIATRY PROCEDURES) ferrous sulfate 325 mg (65 mg iron) tablet 325 mg PO [id number] Discharge Orders: Discharge Order (Routine); Ordered 06/29/25 Ordered By: Lauren Ring Admission Data Admit Date/Time: 06/28/25 13:53 Attending Provider: Lauren Ring Admit Provider: Lauren Ring Primary Care Provider: Katarina Villarreal Other Providers: Lauren Ring Hospital Stay Data Consultations 06/27/25 14:20 ED Decision to Admit Stat Pending Results Patient Have Any Pending Studies at Discharge: No Discharge Instructions Given to Patient (Per Discharging Provider) You were treated for community acquired pneumonia which caused low oxygen, cough, and malaise This has all improved This is treated with two antibiotics: You completed a course of azithromycin while in the hospital - the three-dose regimen will still be active in your body for about 10 days I prescribed amoxicillin - you need two more days of this, start tomorrow morning Resume your usual home medications It was a pleasure taking care of you in the hospital, Lauren Ring MD Total Time Total Time Spent Total Time Spent (In Minutes): <30 Coding Level of Care Code 95204 IN/OBS DISCH 30 MIN/LESS Diagnoses CAP (community acquired pneumonia) J18.9 Pulmonary hypertension I27.20 Anemia D64.9 Hypertension I10 CKD (chronic kidney disease), stage III N18.30
[2025-06-30] MEDS ORDERED: hydroCHLOROthiazide 25 MG TAB PO SCH (09:00)
== END 2025-06-29 15:00 | disposition home or self-care (01) | DRG 194 ==
LOC: SUATTDRO → ED 12:22 → 3E 12:22